=== PATIENT | male | born 1970 | race African-American/Black ===

== ENCOUNTER 2017-11-11 07:01 | Inpatient (IN) | payer OTHER ==
[2017-11-08 13:51] VITALS: BMI 32.8
[2017-11-11] MEDS ORDERED: PROPOFOL 20 ML ONE ×29 (07:42→15:20)
[2017-11-11] MEDS ORDERED: fentaNYL CITRATE 250 MCG/5 ML VIAL ONE ×5 (07:43→17:21)
[2017-11-11] MEDS ORDERED: MIDAZOLAM HCL 2 MG/2 ML SINGLE DOSE VIAL ONE ×2 (07:43)
[2017-11-11] MEDS ORDERED: ceFAZolin SODIUM 1 GM VIAL ONE ×2 (07:43→14:24)
[2017-11-11] MEDS ORDERED: ONDANSETRON 4 MG/2 ML VIAL ONE (07:43)
[2017-11-11] MEDS ORDERED: ROCURONIUM BROMIDE 50 MG/5 ML VIAL ONE ×3 (07:43→11:06)
[2017-11-11] MEDS ORDERED: DEXAMETHASONE SOD PHOSPHATE 4 MG/1 ML VIAL ONE (07:43)
[2017-11-11] MEDS ORDERED: SUCCINYLCHOLINE CHLORIDE 200 MG/10 ML VIAL ONE (07:43)
[2017-11-11] MEDS ORDERED: DESFLURANE GAS 240 ML BOTTLE IH ONE (07:56)
[2017-11-11] MEDS ORDERED: THROMBIN (BOVINE) 5,000 UNIT VIAL TP ONE ×2 (08:22→14:29)
[2017-11-11] MEDS ORDERED: HEPARIN NA (PORCINE) 5,000 UNITS/ML 1ML VIAL ONE (08:22)
[2017-11-11] MEDS ORDERED: LABETALOL HCL 5 MG/1 ML (100MG/20 ML VIAL) ONE (09:13)
[2017-11-11] MEDS ORDERED: VANCOMYCIN 1,000 MG VIAL (RESTRICTED TO ID ONLY) IVPB ONE (09:54)
[2017-11-11] MEDS ORDERED: ceFAZolin SODIUM 1 GM VIAL IVPB ONE (10:30)
[2017-11-11] MEDS ORDERED: TRANEXAMIC ACID 1000 MG/10 ML VIAL ONE (10:55)
[2017-11-11] MEDS ORDERED: PHENYLEPHRINE HCL 10 MG/1 ML SINGLE DOSE VIAL ONE (14:28)
[2017-11-11] MEDS ORDERED: GELATIN, ABSORBABLE 100 EACH SPONGE TP ONE (14:30)
[2017-11-11] MEDS ORDERED: BENZOIN/ALOE VERA/STORAX/TOLU 58 ML BOTTLE ONE (17:53)
--- NOTE | 2017-11-11 18:44 | OP ---
Operative Note - Note: Operative Date: 11/11/17 Pre-Operative Diagnosis: Thoracolumbar spondylosis. Lumbar radiculopathy. Progressive neurological decline Operation: 1. L2-S1 laminectomies. 2. L3-4, L4-5, L5-S1 PLIF. 3. T8-S1 PISF. 4. Multi-layered, complex wound closure (~40cm) Post-Operative Diagnosis: Same as Pre-op Surgeon: Dameon Maki Medical Review Specialist: Rojas Maki (Co-Surgeon) Anesthesiologist/PERINATAL TECHNICIAN: Geovanni Carrillo Anesthesia: General Specimens Removed: L3-4, L4-5, L5-S1 discs Estimated Blood Loss (mls): 2,470 Drains & Tubes with Location: 1 x deep & 1 x superficial HemoVac Blood Volume Replaced (mls): 1,250 (Cell Saver) Fluid Volume Replaced (mls): 7,000 (Crystalloid) Operative Report Dictated: Yes
--- NOTE | 2017-11-11 18:47 | PN ---
Progress Note (short form) - Note Progress Note: 47M s/p L2-S1 laminectomies, L3-4, L4-5, L5-S1 PLIF, T8-S1 PISF POD #0. -Admit to ICU post-op. -Pain control: per anaesthesia team; SENIOR ENVIRONMENTAL CONSULTANT. -Mechanical DVT PPx. only: CRISTOPHER's, SCD's. -Incentive spirometry; aggressive chest PT. -PT/OT/Rehab, OOB. -WBAT B/L LE. -f/u drain output. -NPO until flatus, then advance as tolerated. -Lott care; d/c when ambulating. -Elad-op antibiotics. -f/u post-op, AM labs. -Care per medical hospitalist service. -Discharge planning. -Will follow. Rojas Maki MD (Orthopaedic Surgery).
[2017-11-11] MEDS ORDERED: ONDANSETRON 4 MG/2 ML VIAL IVPUSH PRN ×2 (18:59→19:50)
[2017-11-11] MEDS ORDERED: LACTATED RINGERS SOLUTION 1,000 ML IV SCH ×2 (19:00→20:00)
[2017-11-11] MEDS ORDERED: ceFAZolin 2 GRAM PREMIX BAG IVPB SCH (19:00)
[2017-11-11] MEDS ORDERED: KETOROLAC TROMETHAMINE 30 MG/1 ML VIAL IVPUSH PRN (19:00)
[2017-11-11] MEDS ORDERED: PROMETHAZINE HCL 25 MG/1 ML VIAL IVPB PRN (19:50)
[2017-11-11 20:45] LABS: ARTERIAL BLOOD GAS BASE EXCESS -5.4 meq/l (-2-2); ARTERIAL BLOOD GAS PCO2 33.9 mmHg (35-45); ARTERIAL BLOOD GAS pH 7.36 (7.35-7.45)
[2017-11-11 20:46] LABS: ALLENS TEST POSITIVE
[2017-11-11] MEDS ORDERED: VANCOMYCIN 1,000 MG in DEXTROSE 5%-WATER - 250 ML IVPB ONE (21:30)
[2017-11-11] MEDS: HYDROmorphone *PCA* 10MG/50ML DISP.SYRIN PCA SCH (21:55)
[2017-11-11] MEDS ORDERED: HYDROmorphone *PCA* 10MG/50ML DISP.SYRIN PCA SCH (22:00)
[2017-11-11] MEDS ORDERED: ACETAMINOPHEN INJECTION 100 ML IVPB ONE (22:16)
[2017-11-11] MEDS: ACETAMINOPHEN 1000 MG/100 ML VIAL (NON FORMULARY) IVPB SCH (22:18)
--- NOTE | 2017-11-11 23:46 | OP ---
DATE OF OPERATION: 11/11/2017 SURGEON: Dameon Maki MD SENIOR MANAGEMENT CONSULTANT: Rojas Maki MD PREOPERATIVE DIAGNOSES: 1. Disk prolapse at L3-4, L4-5, L5-6 with associated spinal stenosis. 2. Diffuse facet arthropathy from thoracolumbar junction to lumbosacral junction. 3. Kyphosis. 4. Segmental instability. ANESTHESIA: General. OPERATION PERFORMED: 1. Laminectomy, L2 to S1. 2. Posterior lumbar interbody fusion, L3-4; posterior lumbar interbody fusion, L4-5; posterior lumbar interbody fusion, L5-S1. Each level with cages and anterior bone grafting. 3. Pedicle screw instrumentation, T8 to S1. 4. Posterolateral arthrodesis, T8 to S1. 5. Hernandez-Quijano osteotomy, T12-L1, L1-2. 6. Yohannes osteotomies, T8, T9, T10, T11, and T12, left and right-hand sides. 7. Use of bone marrow aspirate concentrate and autograft. 8. Complex wound closure, 40 cm. 9. Use of biplane fluoroscopy. ANTIBIOTICS GIVEN: Kefzol 2 g, vancomycin 1 g preoperative; Kefzol 1 g given intraoperatively. BLOOD LOSS: Approximately 2 L. Only Cell Saver blood was given back to the patient. Patient remained stable throughout. OPERATION DETAILS: The patient was correctly identified, brought to the operating room. Imaging was available for intraoperative evaluation. The thoracolumbosacral spine was prepped in the routine manner with Betadine scrub solution, wiped off with alcohol. DuraPrep applied. Timeout was called. Intraoperative imaging was available for evaluation and assessment. The patient was correctly identified, placed prone on gel rolls. The pelvis was maintained in as much extension as possible in order to maintain lumbar lordosis and prevent anteversion of the pelvis. The entire spine from the tip of the spinous process of T7 to S1 was opened. A subperiosteal dissection was performed at each level after the tip of the transverse process at both the thoracic as well as lumbar spine region. The levels were appreciated with anatomical guidelines and a lateral fluoroscopic x-ray. The L2, L3, L4, L5 laminae were resected with a complete laminectomy and undercutting facetectomy to relieve his spinal stenosis and to enable accurate positioning of cages for the posterior lumbar interbody fusion L3-4, L4 -5, and L5-S1. Significant spinal stenosis accounted and noted at L3-4, L4-5, and L5-S1. An undercutting facetectomy was likewise performed, freeing the entire nerve root complex. Once this had been performed, the dura was retracted from right to left at L3-4 and L4-5 and from left to right at L5-S1. Epidural veins were dealt with with bipolar Bovie. Each diskectomy was performed, and each removal of disk material from the interdisk content space was dealt with in the exact same way, that is an elliptical annulectomy performed. The brando were inserted. The brando at L4 -5 went up to a size 13 to receive a Press-Fitted 14 cage. This was a TETRAfuse cage. At L5-S1, a size 10 cage was inserted, and at L3-4, a size 11 cage inserted. Each disk space was dealt with in the exact same manner, that is all disk material removed using pituitary rongeurs, the brando, serrated curettes. Pituitary rongeurs included up and downgoing curettes right down to the endplate at all levels where irrigation of the cages after each cage inserted and prior to insertion of each cage, each interdisk space was packed with autologous bone that was milled in a [employer], harvested from the posterior elements, and packed into the interbody space. Solid Press-Fit fixation achieved at all. Lordosis well maintained. Verification of cage seating on x-ray revealed excellent positioning. Once this had been performed, using anatomical guidelines and lateral fluoroscopic x-ray, the pedicles T8 to S1 were identified. Each pedicle was seated with anatomical guidelines. Lateral fluoroscopic x-ray enabled us to seat the screws accurately in relation to the endplates. All screws measured 6 x 40 in the thoracic spine, 6.5 x 45 in the lumbar spine, and 7.5 into the S1 complexes at the lumbosacral junction. Solid fixation of all screws enjoyed. Appropriately, each screw tested with intraoperative neuromonitoring, found to be completely safe. The cage sizes were 11, 13, and 14. Long rods were utilized. The T8 to S1 fusion now being noted. At this point, we converted the undercutting facetectomy at T12-L1 and L1-L2 into Hernandez-Quijano osteotomies, both left and right-hand sides to enhance the lordosis, and appropriate Yohannes osteotomies were performed from T8 right down to T12 to facilitate screw fixation as well as fusion. The rods contoured appropriately, fixed solidly into the screw heads. Excellent reduction and fixation achieved. Two CrossLinks applied. The torque devices tightened all caps to the screw heads appropriately. The wounds were thoroughly lavaged at the outset of the operation. At the end of the procedure, the bone grafting was a combination of marrow that had been aspirated from the left posterior ilium, 20 mL of marrow as spun down for the CD34 cells. This achieved appropriate mixing with the graft and brought about a solid, associated posterolateral arthrodesis from T8 to S1, left and right-hand sides. The wounds again were thoroughly lavaged. The dura was completely intact. Closure: Muscle 1 Vicryl, fascia 1 Vicryl, subcutaneous 1 and 2-0 Vicryl, skin 3-0 Monocryl with Steri-Strips. This completed a 40-cm complex wound closure. Two drains were utilized, one deep, one superficial. These were 1/8-inch Hemovacs. Operation went extremely well. Patient will be nursed in the ICU. MD WIL Bates/[id number] MTDD
[2017-11-12] MEDS: ACETAMINOPHEN 1000 MG/100 ML VIAL (NON FORMULARY) IVPB SCH ×2 (03:30→10:10)
[2017-11-12 06:20] LABS: HEMATOCRIT 26.1 % (35.4-49); HEMOGLOBIN 8.8 GM/dL (11.7-16.9); MCH 29.3 pg (25.7-33.7); MCHC 33.7 g/dl (32.0-35.9); MEAN PLT VOLUME 9.1 fl (7.5-11.1); PLATELET COUNT 115 K/MM3 (134-434); WHITE BLOOD COUNT 16.7 K/mm3 (4.0-10.0)
[2017-11-12 06:43] LABS: ANION GAP 5 (8-16); BLOOD UREA NITROGEN 25 mg/dL (7-18); CALCIUM 7.3 mg/dL (8.5-10.1); CHLORIDE 109 mmol/L (98-107); CO2 25 mmol/L (21-32); CREATININE 2.7 mg/dL (0.7-1.3); GLUCOSE,RANDOM 111 mg/dL (74-106); SODIUM 139 mmol/L (136-145)
[2017-11-12] MEDS: CEFAZOLIN 2 GM/D5W 2 GM/50 ML ML IVPB SCH (07:04)
--- NOTE | 2017-11-12 08:18 | PN ---
Progress Note, Physician Chief Complaint: s/p T4-S1 fusion with pelvic fixation under general anesthesia History of Present Illness: post op day one. Patient with post op delirium overnight in the ICU now resolved - Current Medication List Current Medications: Active Medications Acetaminophen (Ofirmev Injection -) 1,000 mg IVPB Q8H [facility] Stop: 11/12/17 11:01 Last Admin: 11/12/17 03:30 Dose: 1,000 mg Fentanyl (Sublimaze Injection -) 50 mcg IVPUSH [id number] PRN PRN Reason: PAIN-PACU ORDER X 4 DOSES ONLY Gabapentin (Neurontin -) 600 mg PO BID LIBBY Gabapentin (Neurontin -) 1,200 mg PO HS [facility]BY Hydromorphone HCl (Dilaudid Telecommunications Network Engineer -) 10 mg INTERNATIONAL LOGISTICS MANAGER INTERNATIONAL LOGISTICS MANAGER [facility] PRN Reason: Protocol Stop: 11/18/17 21:53 Last Admin: 11/11/17 21:55 Dose: 10 mg Lactated Ringer's (Lactated Ringers Solution) 1,000 mls @ 75 mls/hr IV ASDIR [facility] Last Admin: 11/11/17 22:00 Dose: 0 mls Ketorolac Tromethamine (Toradol Injection -) 30 mg IVPUSH Q6H PRN PRN Reason: PAIN LEVEL 7 - 10 Ondansetron HCl (Zofran Injection) 4 mg IVPUSH Q6H PRN PRN Reason: NAUSEA AND/OR VOMITING Promethazine HCl (Phenergan Injection -) 12.5 mg IVPB Q6H PRN PRN Reason: NAUSEA-FOR RESCUE AFTER 15 MIN - Objective Vital Signs: Vital Signs Temperature 97.8 F 11/12/17 02:00 Pulse Rate 85 11/12/17 06:00 Respiratory Rate 22 11/12/17 06:00 Blood Pressure 105/76 11/12/17 06:00 O2 Sat by Pulse Oximetry (%) 100 11/11/17 23:15 Constitutional: Yes: Well Nourished Cardiovascular: Yes: WNL Respiratory: Yes: WNL Gastrointestinal: Yes: WNL Labs: CBC, BMP 11/12/17 05:55 11/12/17 05:55 Assessment/Plan Patient with post op delirium, now resolved, pain control with INTERNATIONAL LOGISTICS MANAGER, patient asleep at time of visit, will continue sap senior developer for analgesia for now. dept of anesthesia will continue to follow
[2017-11-12] MEDS: GABAPENTIN 300 MG CAPSULE (FP) PO SCH ×2 (09:16→21:13)
[2017-11-12] MEDS ORDERED: HYDROmorphone HCL CARPU-JECT 1 MG/1 ML DISP.SYRIN IVPUSH ONE (09:29)
[2017-11-12] MEDS ORDERED: HYDROmorphone HCL 5 MG/5 ML CUP PO ONE (10:00)
[2017-11-12] MEDS ORDERED: SODIUM POLYSTYRENE SULFONATE 15 GM/60 ML BOTTLE PO ONE (12:12)
--- NOTE | 2017-11-12 13:32 | CONSULT ---
Consultation: REQUESTING PROVIDER: CONSULT REQUEST: We have been asked to medically evaluate this patient for ICU care HISTORY OF PRESENT ILLNESS: Patient is a 47M with history of HTN in the ICU after having L2-S1 laminectomy, L3-4 L4-5 L5-S1 PLIF, T8-S1 PISF. Patient endorses pain in his back and hiccups. Patient denies fevers, chills. Had episode of delirium after given morphine. Denies history of kidney problems. REVIEW OF SYSTEMS: CONSTITUTIONAL: Absent: fever, chills, diaphoresis, generalized weakness HEENT: Absent: rhinorrhea, nasal congestion, throat pain, throat swelling CARDIOVASCULAR: Absent: chest pain, syncope, palpitations, RESPIRATORY: Present: Hiccups Absent: cough, shortness of breath, dyspnea with exertion, GASTROINTESTINAL: Absent: abdominal pain, abdominal distension, nausea, vomiting GENITOURINARY: Absent: dysuria, frequency MUSCULOSKELETAL: Present: Back pain. Absent: Neck pain SKIN: Absent: rash, itching, pallor NEUROLOGIC: Absent: headache, focal weakness or paresthesias, dizziness PHYSICAL EXAMINATION Vital Signs - 24 hr 11/11/17 11/11/17 11/11/17 19:37 19:45 19:53 Temperature 97.8 F Pulse Rate 88 74 Respiratory 17 10 L 11 L Rate Blood Pressure 130/97 137/100 O2 Sat by Pulse 100 100 Oximetry (%) 11/11/17 11/11/17 11/11/17 20:00 20:15 20:30 Temperature Pulse Rate 79 75 76 Respiratory 8 L 11 L 10 L Rate Blood Pressure 137/115 115/47 115/88 O2 Sat by Pulse 100 100 100 Oximetry (%) 11/11/17 11/11/17 11/11/17 20:45 21:00 21:15 Temperature Pulse Rate 75 76 80 Respiratory 10 L 10 L 9 L Rate Blood Pressure 125/88 120/84 118/78 O2 Sat by Pulse 100 100 100 Oximetry (%) 11/11/17 11/11/17 11/11/17 21:35 21:45 21:55 Temperature Pulse Rate 78 78 78 Respiratory 10 L 9 L 9 L Rate Blood Pressure 120/80 112/82 112/82 O2 Sat by Pulse 100 100 Oximetry (%) 11/11/17 11/11/17 11/11/17 22:00 22:15 22:30 Temperature Pulse Rate 86 85 83 Respiratory 9 L 9 L 8 L Rate Blood Pressure 112/70 110/72 111/63 O2 Sat by Pulse 100 100 100 Oximetry (%) 11/11/17 11/11/17 11/11/17 22:45 23:00 23:15 Temperature Pulse Rate 85 84 79 Respiratory 10 L 8 L 10 L Rate Blood Pressure 114/76 118/69 128/78 O2 Sat by Pulse 100 100 100 Oximetry (%) 11/11/17 11/12/17 11/12/17 23:30 02:00 04:44 Temperature 98.0 F 97.8 F Pulse Rate 82 88 93 H Respiratory 16 20 29 H Rate Blood Pressure 119/76 91/51 102/55 O2 Sat by Pulse Oximetry (%) 11/12/17 11/12/17 11/12/17 06:00 08:00 09:00 Temperature Pulse Rate 85 85 Respiratory 22 22 22 Rate Blood Pressure 105/76 127/67 O2 Sat by Pulse 100 Oximetry (%) 11/12/17 11/12/17 10:00 11:57 Temperature 97.5 F L Pulse Rate 86 88 Respiratory 22 22 Rate Blood Pressure 113/63 122/70 O2 Sat by Pulse Oximetry (%) GENERAL: Awake, alert, and fully oriented, in no acute distress. HEAD: Normal with no signs of trauma. EYES: Pupils equal, round and reactive to light, extraocular movements intact EARS, NOSE, THROAT: Ears normal, nares patent, oropharynx clear without exudates. Moist mucous membranes. NECK: Normal range of motion, supple without lymphadenopathy, JVD, or masses. LUNGS: Breath sounds equal, clear to auscultation bilaterally. No wheezes, and no crackles. No accessory muscle use. HEART: Regular rate and rhythm, normal S1 and S2 without murmur, rub or gallop. ABDOMEN: Soft, nontender, not distended, normoactive bowel sounds, no guarding, no rebound, no masses. No hepatomegaly or splenomegaly. UPPER EXTREMITIES: 2+ pulses, warm, well-perfused. No cyanosis. No clubbing. Cap refill <2 seconds. No peripheral edema. LOWER EXTREMITIES: 2+ pulses, warm, well-perfused. No calf tenderness. No peripheral edema. NEUROLOGICAL: Cranial nerves II-XII intact. Normal speech. SKIN: Warm, dry, normal turgor, no rashes or lesions noted. Laboratory Results - last 24 hr 11/11/17 11/12/17 11/12/17 20:40 05:55 05:55 WBC 16.7 H RBC 3.00 L Hgb 8.8 L Hct 26.1 L MCV 87.0 MCH 29.3 MCHC 33.7 RDW 14.0 Plt Count 115 L MPV 9.1 Puncture Site Left radial ABG pH 7.36 ABG pCO2 at Pt Temp 33.9 L ABG pO2 at Pt Temp 544.0 H* ABG HCO3 18.8 L ABG O2 Sat (Measured) 100.0 H* ABG O2 Content 16.9 ABG Base Excess -5.4 L Gabriele Test Positive O2 Delivery Device Mech vent Oxygen Flow Rate 100% Vent Mode A/c Vent Rate 10 Mechanical Rate Yes PEEP 0.0 Pressure Support Vent 800 Sodium 139 Potassium 6.0 H Chloride 109 H Carbon Dioxide 25 Anion Gap 5 L BUN 25 H Creatinine 2.7 H Random Glucose 111 H Calcium 7.3 L Active Medications Generic Name Dose Route Start Last Admin Trade Name Freq PRN Reason Stop Dose Admin Fentanyl 50 mcg 11/11/17 19:50 Sublimaze Injection - IVPUSH [id number] PRN PAIN-PACU ORDER X 4 DOSES ONLY Gabapentin 600 mg 11/11/17 22:00 11/12/17 09:16 Neurontin - PO 600 mg BID LIBBY Administration Gabapentin 1,200 mg 11/11/17 22:00 Neurontin - PO HS LIBBY Hydromorphone HCl 10 mg 11/11/17 23:38 11/11/17 21:55 Dilaudid Produce Shipper - PUMPER HAND 11/18/17 21:53 10 mg PUMPER HAND LIBBY Administration Protocol Lactated Ringer's 1,000 mls @ 75 mls/hr 11/11/17 20:00 11/11/17 22:00 Lactated Ringers Solution IV 0 mls ASDIR LIBBY Administration Ketorolac Tromethamine 30 mg 11/11/17 19:00 Toradol Injection - IVPUSH Q6H PRN PAIN LEVEL 7 - 10 Ondansetron HCl 4 mg 11/11/17 19:50 Zofran Injection IVPUSH Q6H PRN NAUSEA AND/OR VOMITING Promethazine HCl 12.5 mg 11/11/17 19:50 Phenergan Injection - IVPB Q6H PRN NAUSEA-FOR RESCUE AFTER 15 MIN ASSESSMENT/PLAN: 47M with history of HTN in ICU after multiple spinal surgeries. Episode of delirium last night. Neuro #Post-op pain -PUMPER HAND -Given dilaudid PO because of worsening pain, pain since controlled with PUMPER HAND -Avoid morphine given episode of delirium -Back spasms, given flexeril. Renal #Elevated Cr level, possible rhabdo -Cr 2.7, baseline 1.1, K 5.5 on 10/31/17 -BUN/Cr does not suggest pre-renal -Renal consulted, appreciate recs, adding CK, repeat BMP, kidney/bladder US. FEN/GI #Advance diet per surgery #Hyperkalemic today to 6.0, given kayexalate PPx -Mechanical ppx only -Incentive spirometer Dispo- continued ICU monitoring Visit type - Emergency Visit Emergency Visit: No - New Patient This patient is new to me today: Yes Date on this admission: 11/12/17 - Critical Care Critical Care patient: Yes Total Critical Care Time (in minutes): 35 Critical Care Statement: The care of this patient involved high complexity decision making to prevent further life threatening deterioration of the patient 's condition and/or to evaluate & treat vital organ system(s) failure or risk of failure.
--- NOTE | 2017-11-12 14:36 | PN ---
Teaching Attending Note Name of Resident: Tyrese Krishnan ATTENDING PHYSICIAN STATEMENT I saw and evaluated the patient. I reviewed the resident's note and discussed the case with the resident. I agree with the resident's findings and plan as documented. SUBJECTIVE: Patient seen and examined in the ICU. POD#1 L2-S1 laminectomy, L3-4 L4-5 L5-S1 PLIF, T8-S1 PISF. Awake and alert. (+) Back pain 6/10. (+) hiccups No CP or SOB. Intake & Output 11/09/17 11/10/17 11/11/17 11/12/17 23:59 23:59 23:59 23:59 Intake Total 8850 1016 Output Total 4020 900 Balance 4830 116 Last Vital Signs Temp Pulse Resp BP Pulse Ox 98.1 F 86 22 119/74 100 11/12/17 13:00 11/12/17 13:00 11/12/17 13:00 11/12/17 13:00 11/12/17 09:00 Active Medications Fentanyl (Sublimaze Injection -) 50 mcg IVPUSH [id number] PRN PRN Reason: PAIN-PACU ORDER X 4 DOSES ONLY Gabapentin (Neurontin -) 600 mg PO BID [facility] Last Admin: 11/12/17 09:16 Dose: 600 mg Gabapentin (Neurontin -) 1,200 mg PO HS [facility] Hydromorphone HCl (Dilaudid System Safety Engineer -) 10 mg EXPLOSIVE ORDNANCE TECHNICIAN EXPLOSIVE ORDNANCE TECHNICIAN LIBBY PRN Reason: Protocol Stop: 11/18/17 21:53 Last Admin: 11/11/17 21:55 Dose: 10 mg Lactated Ringer's (Lactated Ringers Solution) 1,000 mls @ 75 mls/hr IV ASDIR [facility] Last Admin: 11/11/17 22:00 Dose: 0 mls Ketorolac Tromethamine (Toradol Injection -) 30 mg IVPUSH Q6H PRN PRN Reason: PAIN LEVEL 7 - 10 Ondansetron HCl (Zofran Injection) 4 mg IVPUSH Q6H PRN PRN Reason: NAUSEA AND/OR VOMITING Promethazine HCl (Phenergan Injection -) 12.5 mg IVPB Q6H PRN PRN Reason: NAUSEA-FOR RESCUE AFTER 15 MIN GENERAL: Awake, alert, and fully oriented, in no acute distress. HEAD: Normal with no signs of trauma. EYES: Pupils equal, round and reactive to light, extraocular movements intact EARS, NOSE, THROAT: Ears normal, nares patent, oropharynx clear without exudates. Moist mucous membranes. NECK: Normal range of motion, supple without lymphadenopathy, JVD, or masses. LUNGS: Breath sounds equal, clear to auscultation bilaterally. No wheezes, and no crackles. No accessory muscle use. HEART: Regular rate and rhythm, normal S1 and S2 without murmur, rub or gallop. ABDOMEN: Soft, nontender, not distended, normoactive bowel sounds, no guarding, no rebound, no masses. No hepatomegaly or splenomegaly. UPPER EXTREMITIES: 2+ pulses, warm, well-perfused. No cyanosis. No clubbing. Cap refill <2 seconds. No peripheral edema. LOWER EXTREMITIES: 2+ pulses, warm, well-perfused. No calf tenderness. No peripheral edema. BACK: dressing intact NEUROLOGICAL: Non-focal SKIN: Warm, dry, normal turgor, no rashes or lesions noted. Laboratory Results - last 24 hr 11/11/17 11/12/17 11/12/17 20:40 05:55 05:55 WBC 16.7 H RBC 3.00 L Hgb 8.8 L Hct 26.1 L MCV 87.0 MCH 29.3 MCHC 33.7 RDW 14.0 Plt Count 115 L MPV 9.1 Puncture Site Left radial ABG pH 7.36 ABG pCO2 at Pt Temp 33.9 L ABG pO2 at Pt Temp 544.0 H* ABG HCO3 18.8 L ABG O2 Sat (Measured) 100.0 H* ABG O2 Content 16.9 ABG Base Excess -5.4 L Gabriele Test Positive O2 Delivery Device Mech vent Oxygen Flow Rate 100% Vent Mode A/c Vent Rate 10 Mechanical Rate Yes PEEP 0.0 Pressure Support Vent 800 Sodium 139 Potassium 6.0 H Chloride 109 H Carbon Dioxide 25 Anion Gap 5 L BUN 25 H Creatinine 2.7 H Random Glucose 111 H Calcium 7.3 L ASSESSMENT/PLAN: POD#1 L2-S1 laminectomy, L3-4 L4-5 L5-S1 PLIF, T8-S1 PISF HTN Episode of delirium last night Acute on CKD suspected R/O Rhabdomyolysis EXPLOSIVE ORDNANCE TECHNICIAN Flexeril O2 as needed Mechanical VTE prophylaxis Incentive Spriometry PO as tolerated Follow renal function / K+ Level Disposition/further recommendations per surgery Dr Bryant Critical care time spent in reviewing chart, evaluating patient and formulating plan - 36 minutes.
--- NOTE | 2017-11-12 15:53 | CONSULT ---
Consult Consult Specialty:: Nephrology Reason for Consultation:: JEREMIE - History of Present Illness Chief Complaint: s/p laminectomy History of Present Illness: Pt is a 47 year old male who is s/p laminectomy who is admitted to the ICU. He was found to be in renal failure and I was called to evaluate him. He says that he has history of HTN which is diet controlled. He complains of back pain. He denies history of CKD. He has been taking NSAIDs daily for the last 4 years. He was on the OR table for a prolonged period of time. He denies dysuria or hematuria. He was also found to be hyperkalemic. He denies chest pain or palpitations. - History Source History Provided By: Patient - Past Medical History Cardio/Vascular: Yes: HTN - Past Surgical History Past Surgical History: Yes: Laminectomy - Alcohol/Substance Use Hx Alcohol Use: No - Smoking History Smoking history: Never smoked Have you smoked in the past 12 months: No Home Medications - Allergies Allergies/Adverse Reactions: Allergies Allergy/AdvReac Type Severity Reaction Status Date / Time No Known Drug Allergies Allergy Verified 11/11/17 07:40 - Home Medications Home Medications: Ambulatory Orders Chlorzoxazone [Lorzone] 750 mg PO DAILY 11/08/17 Cyclobenzaprine HCl 10 mg PO PRN PRN 11/08/17 Gabapentin 1,200 mg PO HS 11/08/17 Gabapentin 600 mg PO BID 11/08/17 Omeprazole 20 mg PO DAILY 11/08/17 Oxycodone HCl/Acetaminophen [Endocet 10-325 mg Tablet] 1 each PO TID PRN Family Disease History - Family Disease History Family Disease History: Diabetes: Mother Review of Systems - Review of Systems Constitutional: reports: Malaise Eyes: reports: No Symptoms HENT: reports: No Symptoms Neck: reports: No Symptoms Cardiovascular: reports: No Symptoms Respiratory: reports: No Symptoms Gastrointestinal: reports: No Symptoms Genitourinary: reports: No Symptoms Musculoskeletal: reports: Back Pain Neurological: reports: No Symptoms Endocrine: reports: No Symptoms Psychiatric: reports: No Symptoms Physical Exam Vital Signs: Vital Signs Temperature 98.1 F 11/12/17 14:00 Pulse Rate 86 11/12/17 14:00 Respiratory Rate 22 11/12/17 14:00 Blood Pressure 119/74 11/12/17 14:00 O2 Sat by Pulse Oximetry (%) 100 11/12/17 09:00 Constitutional: Yes: Calm Eyes: Yes: Conjunctiva Clear HENT: Yes: Atraumatic Neck: Yes: Supple Cardiovascular: Yes: S1, S2 Respiratory: Yes: CTA Bilaterally Gastrointestinal: Yes: Normal Bowel Sounds, Soft Renal/: Yes: WNL Musculoskeletal: Yes: WNL Edema: No Neurological: Yes: Oriented Psychiatric: Yes: Oriented Labs: CBC, BMP 11/12/17 05:55 11/12/17 05:55 Laboratory Tests 11/12/17 11/12/17 11/12/17 05:55 05:55 15:15 Hgb 8.8 L Sodium 139 140 Potassium 6.0 H 4.9 Chloride 109 H 109 H Carbon Dioxide 25 24 Anion Gap 5 L 7 L BUN 25 H Creatinine 2.7 H 3.6 H D Random Glucose 99 Calcium 7.7 L Creatine Kinase 6011 H Imaging - Results Chest X-ray: Report Reviewed Problem List - Problems (1) JEREMIE (acute kidney injury) Code(s): N17.9 - ACUTE KIDNEY FAILURE, UNSPECIFIED (2) Hyperkalemia Code(s): E87.5 - HYPERKALEMIA (3) Rhabdomyolysis Code(s): M62.82 - RHABDOMYOLYSIS Assessment/Plan Current Medications Generic Name Dose Route Start Last Admin Trade Name Miloq PRN Reason Stop Dose Admin Fentanyl 50 mcg 11/11/17 19:50 Sublimaze Injection - IVPUSH [id number] PRN PAIN-PACU ORDER X 4 DOSES ONLY Gabapentin 600 mg 11/11/17 22:00 11/12/17 09:16 Neurontin - PO 600 mg BID LIBBY Administration Gabapentin 1,200 mg 11/11/17 22:00 Neurontin - PO HS LIBBY Hydromorphone HCl 10 mg 11/11/17 23:38 11/11/17 21:55 Dilaudid Splitting Machine Operator - POWERHOUSE MECHANIC SUPERVISOR 11/18/17 21:53 10 mg POWERHOUSE MECHANIC SUPERVISOR LIBBY Administration Protocol Lactated Ringer's 1,000 mls @ 75 mls/hr 11/11/17 20:00 11/11/17 22:00 Lactated Ringers Solution IV 0 mls ASDIR LIBBY Administration Sodium Chloride 1,000 mls @ 1,000 mls/hr 11/12/17 17:18 Normal Saline - IV 11/12/17 18:17 ASDIR STA Ketorolac Tromethamine 30 mg 11/11/17 19:00 Toradol Injection - IVPUSH Q6H PRN PAIN LEVEL 7 - 10 Ondansetron HCl 4 mg 11/11/17 19:50 Zofran Injection IVPUSH Q6H PRN NAUSEA AND/OR VOMITING Promethazine HCl 12.5 mg 11/11/17 19:50 Phenergan Injection - IVPB Q6H PRN NAUSEA-FOR RESCUE AFTER 15 MIN Impression 1. JEREMIE 2. hyperkalemia 3. hx HTN 4. rhabdo 5. s/p laminectomy Plan - asked for repeat labs and potassium is improved however the renal function is worse - please stop all nsaids - IV hydration for rhabdo - check ua, urine lytes and cigarette roller - check renal ultrasound - check cpk daily - d/c LR and give saline - discussed with ICU team - outpt labs that were done on 10/31 cigarette roller 1.1 k 5.5 bun 11 - will follow Dr Ward
--- NOTE | 2017-11-12 16:04 | PN ---
Physical Exam: SUBJECTIVE: Patient seen and examined Overnight, patient had back pain. States pain is moderately controlled but tries not to use the MRI SPECIALIST pump. Patient denies fever, chills, chest pain, shortness of breath. OBJECTIVE: Vital Signs Period Temp Pulse Resp BP Sys/Yo Pulse Ox Last 24 Hr 97.5 F-98.1 F 74-93 8-29 91-137/47-115 100-100 GENERAL: The patient is awake, alert, and fully oriented, in no acute distress. HEAD: Normal with no signs of trauma. EYES: PERRL, extraocular movements intact, sclera anicteric, conjunctiva clear. No ptosis. ENT: Oropharynx clear without exudates, moist mucous membranes. NECK: Trachea midline, full range of motion, supple. LUNGS: Breath sounds equal, clear to auscultation bilaterally, no wheezes, no crackles, no accessory muscle use. HEART: Regular rate and rhythm, S1, S2 without murmur, rub or gallop. ABDOMEN: Soft, nontender, nondistended, hypoactive bowel sounds, no guarding, no rebound, no hepatosplenomegaly, no masses. EXTREMITIES: 2+ pulses, warm, well-perfused, no edema. NEUROLOGICAL: Cranial nerves II through XII grossly intact. normal speech. 5/5 strength in b/l le. sensation decreased below the lateral knee on the right leg. PSYCH: Normal mood, normal affect. SKIN: Warm, dry, normal turgor, no rashes or lesions noted EMI DRAIN IN PLACE TAVER[place] IN PLACE Laboratory Results - last 24 hr 11/11/17 11/12/17 11/12/17 20:40 05:55 05:55 WBC 16.7 H RBC 3.00 L Hgb 8.8 L Hct 26.1 L MCV 87.0 MCH 29.3 MCHC 33.7 RDW 14.0 Plt Count 115 L MPV 9.1 Puncture Site Left radial ABG pH 7.36 ABG pCO2 at Pt Temp 33.9 L ABG pO2 at Pt Temp 544.0 H* ABG HCO3 18.8 L ABG O2 Sat (Measured) 100.0 H* ABG O2 Content 16.9 ABG Base Excess -5.4 L Gabriele Test Positive O2 Delivery Device Mech vent Oxygen Flow Rate 100% Vent Mode A/c Vent Rate 10 Mechanical Rate Yes PEEP 0.0 Pressure Support Vent 800 Sodium 139 Potassium 6.0 H Chloride 109 H Carbon Dioxide 25 Anion Gap 5 L BUN 25 H Creatinine 2.7 H Random Glucose 111 H Calcium 7.3 L Active Medications Generic Name Dose Route Start Last Admin Trade Name Freq PRN Reason Stop Dose Admin Fentanyl 50 mcg 11/11/17 19:50 Sublimaze Injection - IVPUSH [id number] PRN PAIN-PACU ORDER X 4 DOSES ONLY Gabapentin 600 mg 11/11/17 22:00 11/12/17 09:16 Neurontin - PO 600 mg BID LIBBY Administration Gabapentin 1,200 mg 11/11/17 22:00 Neurontin - PO HS LIBBY Hydromorphone HCl 10 mg 11/11/17 23:38 11/11/17 21:55 Dilaudid Shredder Picker - MRI SPECIALIST 11/18/17 21:53 10 mg MRI SPECIALIST LIBBY Administration Protocol Lactated Ringer's 1,000 mls @ 75 mls/hr 11/11/17 20:00 11/11/17 22:00 Lactated Ringers Solution IV 0 mls ASDIR LIBBY Administration Ketorolac Tromethamine 30 mg 11/11/17 19:00 Toradol Injection - IVPUSH Q6H PRN PAIN LEVEL 7 - 10 Ondansetron HCl 4 mg 11/11/17 19:50 Zofran Injection IVPUSH Q6H PRN NAUSEA AND/OR VOMITING Promethazine HCl 12.5 mg 11/11/17 19:50 Phenergan Injection - IVPB Q6H PRN NAUSEA-FOR RESCUE AFTER 15 MIN ASSESSMENT/PLAN: 47 year old M with no pmh presented post op L2-S1 laminectomies, L3-4, L4-5, L5- S1 PLIF, T8-S1 PISF, and Multi-layered, complex wound closure (~40cm). #Post op day 1 s/p L2-S1 laminectomies, L3-4, L4-5, L5-S1 PLIF, T8-S1 PISF, and Multi-layered, complex wound closure -Zofran/Promethazine for nausea -Pain control with toradol, gabapentin, fentanyl, and dilaudid potline monitor -Incentive spirometer/Chest PT -PT/OT, OOB, weight bearing as tolerated #JEREMIE 2/2 to ?rhabdo -CPK pending -LR @ 75 cc/hr -Monitor cr, urine output -Renal/bladder u/s -Renal consult, Dr. Ward #FEN/GI -LR @ 75 cc/hr -wnl -npo #PPx -scds -teds #Dispo -Continue icu level of care Visit type - Emergency Visit Emergency Visit: Yes ED Registration Date: 11/11/17 Care time: The patient presented to the Emergency Department on the above date and was hospitalized for further evaluation of their emergent condition. - New Patient This patient is new to me today: Yes Date on this admission: 11/12/17 - Critical Care Critical Care patient: Yes Total Critical Care Time (in minutes): 38 Critical Care Statement: The care of this patient involved high complexity decision making to prevent further life threatening deterioration of the patient 's condition and/or to evaluate & treat vital organ system(s) failure or risk of failure.
[2017-11-12 16:42] LABS: ANION GAP 7 (8-16); BLOOD UREA NITROGEN 34 mg/dL (7-18); CALCIUM 7.7 mg/dL (8.5-10.1); CHLORIDE 109 mmol/L (98-107); CO2 24 mmol/L (21-32); CREATININE 3.6 mg/dL (0.7-1.3); GLUCOSE,RANDOM 99 mg/dL (74-106); POTASSIUM 4.9 mmol/L (3.5-5.1); SODIUM 140 mmol/L (136-145)
[2017-11-12] MEDS ORDERED: SODIUM CHLORIDE 1,000 ML IV STA (17:18)
[2017-11-12] MEDS ORDERED: SODIUM CHLORIDE 1,000 ML IV SCH (17:30)
--- NOTE | 2017-11-12 18:43 | PN ---
Teaching Attending Note Name of Resident: Arnel Nettles ATTENDING PHYSICIAN STATEMENT I saw and evaluated the patient. I reviewed the resident's note and discussed the case with the resident. I agree with the resident's findings and plan as documented. SUBJECTIVE: POD #1, patient complains of back pain. He gets relief with Dilaudid. OBJECTIVE: Vital Signs Period Temp Pulse Resp BP Sys/Yo Pulse Ox Last 24 Hr 97.5 F-98.1 F 74-93 8-29 91-137/47-115 100-100 HEART: S1S2, RRR LUNGS: Clear ABDOMEN: Obese, soft, non-tender, non-distended, normal BS EXTREMITIES: No edema Laboratory Results - last 24 hr 11/11/17 11/12/17 11/12/17 20:40 05:55 05:55 WBC 16.7 H RBC 3.00 L Hgb 8.8 L Hct 26.1 L MCV 87.0 MCH 29.3 MCHC 33.7 RDW 14.0 Plt Count 115 L MPV 9.1 Puncture Site Left radial ABG pH 7.36 ABG pCO2 at Pt Temp 33.9 L ABG pO2 at Pt Temp 544.0 H* ABG HCO3 18.8 L ABG O2 Sat (Measured) 100.0 H* ABG O2 Content 16.9 ABG Base Excess -5.4 L Gabriele Test Positive O2 Delivery Device Mech vent Oxygen Flow Rate 100% Vent Mode A/c Vent Rate 10 Mechanical Rate Yes PEEP 0.0 Pressure Support Vent 800 Sodium 139 Potassium 6.0 H Chloride 109 H Carbon Dioxide 25 Anion Gap 5 L BUN 25 H Creatinine 2.7 H Random Glucose 111 H Calcium 7.3 L Creatine Kinase Creatine Kinase Index CK-MB (CK-2) 11/12/17 15:15 WBC RBC Hgb Hct MCV MCH MCHC RDW Plt Count MPV Puncture Site ABG pH ABG pCO2 at Pt Temp ABG pO2 at Pt Temp ABG HCO3 ABG O2 Sat (Measured) ABG O2 Content ABG Base Excess Gabriele Test O2 Delivery Device Oxygen Flow Rate Vent Mode Vent Rate Mechanical Rate PEEP Pressure Support Vent Sodium 140 Potassium 4.9 Chloride 109 H Carbon Dioxide 24 Anion Gap 7 L BUN 34 H D Creatinine 3.6 H D Random Glucose 99 Calcium 7.7 L Creatine Kinase 6011 H Creatine Kinase Index 0.6 CK-MB (CK-2) 37.714 H Current Medications Generic Name Dose Route Start Last Admin Trade Name Freq PRN Reason Stop Dose Admin Fentanyl 50 mcg 11/11/17 19:50 Sublimaze Injection - IVPUSH [id number] PRN PAIN-PACU ORDER X 4 DOSES ONLY Gabapentin 600 mg 11/11/17 22:00 11/12/17 09:16 Neurontin - PO 600 mg BID LIBBY Administration Gabapentin 1,200 mg 11/11/17 22:00 Neurontin - PO HS LIBBY Hydromorphone HCl 10 mg 11/11/17 23:38 11/11/17 21:55 Dilaudid Data Quality Consultant - RESEARCH HYDRAULIC ENGINEER 11/18/17 21:53 10 mg RESEARCH HYDRAULIC ENGINEER LIBBY Administration Protocol Sodium Chloride 1,000 mls @ 150 mls/hr 11/12/17 17:30 Normal Saline - IV ASDIR LIBBY Ondansetron HCl 4 mg 11/11/17 19:50 Zofran Injection IVPUSH Q6H PRN NAUSEA AND/OR VOMITING Promethazine HCl 12.5 mg 11/11/17 19:50 Phenergan Injection - IVPB Q6H PRN NAUSEA-FOR RESCUE AFTER 15 MIN ASSESSMENT AND PLAN: This is a 47 year old man with no significant past medical history who underwent multi-level laminectomies and fusions. 1. Thoracolumbar spondylosis with lumbar radiculopathy - s/p L2-S1 laminectomies; L3-4, L4-5, L5-S1 PLIF; T8-S1 PISF; multi-layered , complex wound closure 11/11 - Continue Dilaudid RESEARCH HYDRAULIC ENGINEER, Neurontin for pain control - Physical therapy 2. Acute kidney injury with hyperkalemia, rhabdomyolysis - Potassium improved - Toradol discontinued - Continue IV fluid - Monitor CK - Follow up renal US - Nephrology input appreciated 3. Obesity with BMI 32.8
--- NOTE | 2017-11-12 19:35 | PN ---
Progress Note (short form) - Note Progress Note: POD #1 In ICU Awake Fully orientated Comfortable Mild incisional Pain C/O back spasms No leg pain No headache Vitals as per chart Nephrology issues Consult complete CVS Stable Resp Clear Abd Soft Passing flatus Wound bandage dry Drains and catheter in situ. Neuro At baseline ASSESS Doing well Observe renal function. PLAN PT Mobilize FWBAT Pain MX D/C planning ? home
--- NOTE | 2017-11-12 19:37 | PN ---
Progress Note (short form) - Note Progress Note: Pt tolerated clear liquid diet for dinner. Upgraded to soft diet for tomorrow per Dr. Maki.
[2017-11-12] MEDS: GABAPENTIN 400 MG CAPSULE (FP) PO SCH (21:13)
[2017-11-12] MEDS: SODIUM CHLORIDE 1,000 ML IV SCH (21:14)
[2017-11-12 22:01] LABS: URINE APPEARANCE CLOUDY; URINE BILIRUBIN NEGATIVE (<2.0 mg/dL); URINE BLOOD 2+ (NEGATIVE); URINE COLOR YELLOW; URINE GLUCOSE (UA) NEGATIVE (NEGATIVE); URINE KETONE NEGATIVE (NEGATIVE); URINE LEUK ESTERASE TRACE (NEGATIVE); URINE NITRITE NEGATIVE (NEGATIVE); URINE UROBILINOGEN NEGATIVE mg/dL (0.2-1.0)
[2017-11-12 22:15] LABS: URINE PROTEIN 1+ (NEGATIVE)
[2017-11-12 22:20] LABS: EPI CELLS RARE /HPF (FEW); URINE BACTERIA FEW /hpf (NONE SEEN); URINE MUCUS RARE
[2017-11-13 06:32] LABS: BASO % 0.2 % (0-2.0); EOS % 0.4 % (0-4.5); HEMATOCRIT 20.9 % (35.4-49); LYMPH % 7.9 % (8-40); MCH 29.2 pg (25.7-33.7); MCHC 33.4 g/dl (32.0-35.9); MEAN CELL VOLUME 87.4 fl (80-96); MEAN PLT VOLUME 10.2 fl (7.5-11.1); MONO % 8.2 % (3.8-10.2); NEUT % 83.3 % (42.8-82.8); PLATELET COUNT 93 K/MM3 (134-434); RBC 2.39 M/mm3 (4.00-5.60); RDW 14.2 % (11.9-15.9)
[2017-11-13 07:10] LABS: ALBUMIN 2.3 g/dl (3.4-5.0); ANION GAP 5 (8-16); BILIRUBIN,TOTAL 0.1 mg/dL (0.2-1.0); BLOOD UREA NITROGEN 41 mg/dL (7-18); CHLORIDE 112 mmol/L (98-107); CO2 25 mmol/L (21-32); GLUCOSE,RANDOM 96 mg/dL (74-106); MAGNESIUM 1.5 mg/dL (1.8-2.4); POTASSIUM 5.2 mmol/L (3.5-5.1); SGOT/AST 92 U/L (15-37); SGPT/ALT 25 U/L (12-78); SODIUM 142 mmol/L (136-145); TOT PROT 4.1 g/dl (6.4-8.2)
[2017-11-13 07:12] LABS: ALK PHOS 37 U/L (45-117)
[2017-11-13] MEDS: SODIUM CHLORIDE 1,000 ML IV SCH (08:14)
--- NOTE | 2017-11-13 08:33 | PN ---
Progress Note, Physician Chief Complaint: Patient having muscle spasms. PLUG DRILL OPERATOR helps pain some but when he awakens pain is still there. He is having some renal impairment with creatinine rising from 3.6 to 4.0 overnight. Want to avoid drugs that are primarily cleared by kidneys. - Current Medication List Current Medications: Active Medications Fentanyl (Sublimaze Injection -) 50 mcg IVPUSH [id number] PRN PRN Reason: PAIN-PACU ORDER X 4 DOSES ONLY Gabapentin (Neurontin -) 600 mg PO BID [facility] Last Admin: 11/12/17 21:13 Dose: 600 mg Gabapentin (Neurontin -) 1,200 mg PO HS [facility] Last Admin: 11/12/17 21:13 Dose: 1,200 mg Hydromorphone HCl (Dilaudid Riveting Machine Operator Tape Control -) 10 mg PLUG DRILL OPERATOR PLUG DRILL OPERATOR [facility] PRN Reason: Protocol Stop: 11/18/17 21:53 Last Admin: 11/11/17 21:55 Dose: 10 mg Sodium Chloride (Normal Saline -) 1,000 mls @ 150 mls/hr IV ASDIR [facility] Last Admin: 11/13/17 08:14 Dose: 150 mls/hr Ondansetron HCl (Zofran Injection) 4 mg IVPUSH Q6H PRN PRN Reason: NAUSEA AND/OR VOMITING Promethazine HCl (Phenergan Injection -) 12.5 mg IVPB Q6H PRN PRN Reason: NAUSEA-FOR RESCUE AFTER 15 MIN - Objective Vital Signs: Vital Signs Temperature 99.8 F H 11/13/17 06:00 Pulse Rate 108 H 11/13/17 06:00 Respiratory Rate 20 11/13/17 06:00 Blood Pressure 154/89 11/13/17 06:00 O2 Sat by Pulse Oximetry (%) 100 11/12/17 21:00 Constitutional: Yes: Well Nourished, No Distress, Calm Musculoskeletal: Yes: Muscle Pain Neurological: Yes: WNL, Alert, Oriented Labs: CBC, BMP 11/13/17 06:05 11/13/17 06:05 Assessment/Plan POD#2 s/p L2-S1 laminectomies, L3-4, L4-5, L5-S1 PLIF, T8-S1 PISF, Multi-layered , complex wound closure under GA. Has PLUG DRILL OPERATOR, also has renal impairment. Renal has been consulted. Will continue PLUG DRILL OPERATOR and add Ofirmev 1000 x 1 and tylenol PO q6h to help with pain control since I want to avoid muscle relaxants due to current renal status.
[2017-11-13] MEDS ORDERED: ACETAMINOPHEN 1000 MG/100 ML VIAL (NON FORMULARY) IVPB ONE (10:24)
[2017-11-13] MEDS: HYDROmorphone *PCA* 10MG/50ML DISP.SYRIN PCA SCH ×2 (10:48→11:54)
--- NOTE | 2017-11-13 12:28 | PN ---
Progress Note, Physician History of Present Illness: Pt seen and examined at bedside. He is awake and alert. He complains of back discomfort. He denies lower ext edema or shortness of breath. He recalls that he has taken many protein supplements and creatine in the past. - Current Medication List Current Medications: Active Medications Fentanyl (Sublimaze Injection -) 50 mcg IVPUSH [id number] PRN PRN Reason: PAIN-PACU ORDER X 4 DOSES ONLY Gabapentin (Neurontin -) 100 mg PO BID LIBBY Gabapentin (Neurontin -) 100 mg PO HS LIBBY Hydromorphone HCl (Dilaudid Head Of Cytogenetics -) 10 mg LAP WINDING MACHINE OPERATOR LAP WINDING MACHINE OPERATOR LIBBY PRN Reason: Protocol Stop: 11/18/17 21:53 Last Admin: 11/13/17 11:54 Dose: 10 mg Sodium Chloride (Normal Saline -) 1,000 mls @ 150 mls/hr IV ASDIR LIBBY Last Admin: 11/13/17 08:14 Dose: 150 mls/hr Ondansetron HCl (Zofran Injection) 4 mg IVPUSH Q6H PRN PRN Reason: NAUSEA AND/OR VOMITING Promethazine HCl (Phenergan Injection -) 12.5 mg IVPB Q6H PRN PRN Reason: NAUSEA-FOR RESCUE AFTER 15 MIN - Objective Vital Signs: Vital Signs Temperature 99.7 F H 11/13/17 10:00 Pulse Rate 104 H 11/13/17 12:00 Respiratory Rate 20 11/13/17 12:00 Blood Pressure 138/81 11/13/17 12:00 O2 Sat by Pulse Oximetry (%) 100 11/13/17 09:00 Constitutional: Yes: Calm Eyes: Yes: Conjunctiva Clear HENT: Yes: Atraumatic Neck: Yes: Supple Cardiovascular: Yes: S1, S2 Respiratory: Yes: CTA Bilaterally Gastrointestinal: Yes: Soft Genitourinary: Yes: Lott Present Musculoskeletal: Yes: Back Pain Extremities: Yes: WNL Edema: No Neurological: Yes: Oriented Psychiatric: Yes: Oriented Labs: CBC, BMP 11/13/17 06:05 11/13/17 06:05 - ....Imaging Ultrasound: Report Reviewed Problem List - Problems (1) JEREMIE (acute kidney injury) Code(s): N17.9 - ACUTE KIDNEY FAILURE, UNSPECIFIED (2) Hyperkalemia Code(s): E87.5 - HYPERKALEMIA (3) Rhabdomyolysis Code(s): M62.82 - RHABDOMYOLYSIS Assessment/Plan Current Medications Generic Name Dose Route Start Last Admin Trade Name Freq PRN Reason Stop Dose Admin Fentanyl 50 mcg 11/11/17 19:50 Sublimaze Injection - IVPUSH [id number] PRN PAIN-PACU ORDER X 4 DOSES ONLY Gabapentin 100 mg 11/13/17 12:13 Neurontin - PO BID LIBBY Gabapentin 100 mg 11/13/17 22:00 Neurontin - PO HS LIBBY Hydromorphone HCl 10 mg 11/13/17 10:25 11/13/17 11:54 Dilaudid Head Of Cytogenetics - LAP WINDING MACHINE OPERATOR 11/18/17 21:53 10 mg LAP WINDING MACHINE OPERATOR LIBBY Administration Protocol Sodium Chloride 1,000 mls @ 150 mls/hr 11/12/17 17:30 11/13/17 08:14 Normal Saline - IV 150 mls/hr ASDIR LIBBY Administration Ondansetron HCl 4 mg 11/11/17 19:50 Zofran Injection IVPUSH Q6H PRN NAUSEA AND/OR VOMITING Promethazine HCl 12.5 mg 11/11/17 19:50 Phenergan Injection - IVPB Q6H PRN NAUSEA-FOR RESCUE AFTER 15 MIN Impression 1. JEREMIE 2. hyperkalemia 3. hx HTN 4. rhabdo 5. s/p laminectomy Plan - renal function is worsening - cpk is improving - will add bicarb to fluids (1/2ns with 75 meq bicarb) - repeat labs in am to monitor trend - will send out further renal workup - renal ultrasound reviewed - monitor urine output, urine is clear - will need to titrate down dose of gabapentin - avoid nsaids and nephrotoxins - replace calcium and magnesium - outpt labs that were done on 10/31 thermo processor 1.1 k 5.5 bun 11 - monitor volume status - will follow Dr Ward
[2017-11-13] MEDS ORDERED: SODIUM CHLORIDE 0.45% 1,000 ML with SODIUM BICARBONATE 8.4% - 50 MEQ IV SCH (12:30)
[2017-11-13] MEDS ORDERED: MAGNESIUM SULF 50% (8.12 MEQ/2 ML-1 GM VIAL) IVPB ONE (12:30)
[2017-11-13] MEDS ORDERED: MAGNESIUM 1GM/D5W - 1 GM/100 ML IVPB IVPB ONE (13:00)
--- NOTE | 2017-11-13 13:00 | PN ---
Teaching Attending Note Name of Resident: Layo Machado ATTENDING PHYSICIAN STATEMENT I saw and evaluated the patient. I reviewed the resident's note and discussed the case with the resident. I agree with the resident's findings and plan as documented. SUBJECTIVE: Pt seen and examined in the ICU. Pain not controlled, renal function worsening. Denies shortness of breath or chest pain. No fevers or chills. Tolerating PO. + flatus. OBJECTIVE: Last Vital Signs Temp Pulse Resp BP Pulse Ox 99.7 F H 104 H 20 138/81 100 11/13/17 10:00 11/13/17 12:00 11/13/17 12:00 11/13/17 12:00 11/13/17 09:00 Intake & Output 11/10/17 11/11/17 11/12/17 11/13/17 23:59 23:59 23:59 23:59 Intake Total 8850 2376 2040 Output Total 4020 1080 1300 Balance 4830 1296 740 Weight 121.2 kg Gen: NAD at rest Heart: tachycardic, regular Lung: decreased breath sounds at the bases Abd: soft, nontender Ext: no edema CBC, BMP 11/13/17 06:05 11/13/17 06:05 Active Medications Calcium Carbonate/Cholecalciferol (Os-Georges 500+D -) 2 tab PO DAILY LIBBY Fentanyl (Sublimaze Injection -) 50 mcg IVPUSH [id number] PRN PRN Reason: PAIN-PACU ORDER X 4 DOSES ONLY Gabapentin (Neurontin -) 100 mg PO BID LIBBY Gabapentin (Neurontin -) 100 mg PO HS LIBBY Hydromorphone HCl (Dilaudid Granite Polisher -) 10 mg PHARMACIST APPRENTICE PHARMACIST APPRENTICE LIBBY PRN Reason: Protocol Stop: 11/18/17 21:53 Last Admin: 11/13/17 11:54 Dose: 10 mg Sodium Bicarbonate 50 meq/ (Sodium Chloride) 1,050 mls @ 175 mls/hr IV ASDIR LIBBY Magnesium Sulfate/Dextrose (Magnesium 1gm/D5w -) 1 gm in 100 mls @ 100 mls/hr IVPB ONCE ONE Stop: 11/13/17 13:59 Ondansetron HCl (Zofran Injection) 4 mg IVPUSH Q6H PRN PRN Reason: NAUSEA AND/OR VOMITING Promethazine HCl (Phenergan Injection -) 12.5 mg IVPB Q6H PRN PRN Reason: NAUSEA-FOR RESCUE AFTER 15 MIN ASSESSMENT AND PLAN: Lumbar Spondylosis s/p L2-S1 Laminectomies/Fusions Acute Blood Loss Anemia Rhabdomyolysis Acute Kidney Injury HTN Hyperkalemia - IVF, bicarb per renal - monitor urine output, creatinine - adjust pain control - incentive spirometry - trend CPK - PO as tolerated - mechanical DVT prophylaxis - disposition per surgery
[2017-11-13] MEDS ORDERED: SODIUM BICARBONATE 8.4% - 50 ML ONE (13:23)
--- NOTE | 2017-11-13 13:25 | PN ---
Physical Exam: SUBJECTIVE: Patient c/o uncontrolled pain and nausea. Passing flatus but no BM yet. Tolerating soft diet. No other acute events overnight. OBJECTIVE: Vital Signs Period Temp Pulse Resp BP Sys/Oy Pulse Ox Last 24 Hr 98.1 F-100.3 F 86-108 16-25 103-155/63-89 100-100 GENERAL: AAOx3, no acute distress, in pain EYES: PERRL, extraocular movements intact, sclera anicteric, conjunctiva clear. No ptosis. ENT: Oropharynx clear without exudates, moist mucous membranes. NECK: Trachea midline, full range of motion, supple. LUNGS: CTAB HEART: RRR, S1, S2 without murmur, rub or gallop. ABDOMEN: Soft, nontender, nondistended, hypoactive bowel sounds, no guarding, no rebound, no hepatosplenomegaly, no masses. EXTREMITIES: 5/5 strength in UE, sensation intact; unable to lift b/l LE, sensation intact, 2+ pulses, warm, well-perfused, no edema. Laboratory Results - last 24 hr 11/11/17 11/12/17 11/12/17 07:50 15:15 21:10 WBC RBC Hgb Hct MCV MCH MCHC RDW Plt Count MPV Neutrophils % Lymphocytes % Monocytes % Eosinophils % Basophils % Sodium 140 Potassium 4.9 Chloride 109 H Carbon Dioxide 24 Anion Gap 7 L BUN 34 H D Creatinine 3.6 H D Creat Clearance w eGFR Random Glucose 99 Calcium 7.7 L Phosphorus Magnesium Ferritin Total Bilirubin AST ALT Alkaline Phosphatase Creatine Kinase 6011 H Creatine Kinase Index 0.6 CK-MB (CK-2) 37.714 H Total Protein Albumin Urine Color Yellow Urine Appearance Cloudy Urine pH 5.0 Ur Specific [place] 1.013 Urine Protein 1+ H Urine Glucose (UA) Negative Urine Ketones Negative Urine Blood 2+ H Urine Nitrite Negative Urine Bilirubin Negative Urine Urobilinogen Negative Ur Leukocyte Esterase Trace Urine WBC (Auto) 6 Urine RBC (Auto) 9 Ur Epithelial Cells Rare Urine Bacteria Few Urine Mucus Rare Ur Random Sodium Ur Random Potassium Ur Random Chloride Urine Creatinine Blood Type O NEGATIVE Crossmatch See Detail 11/12/17 11/13/17 11/13/17 21:10 06:05 06:05 WBC 14.0 H RBC 2.39 L D Hgb 7.0 L D Hct 20.9 L D MCV 87.4 MCH 29.2 MCHC 33.4 RDW 14.2 Plt Count 93 L MPV 10.2 D Neutrophils % 83.3 H Lymphocytes % 7.9 L Monocytes % 8.2 Eosinophils % 0.4 Basophils % 0.2 Sodium 142 Potassium 5.2 H Chloride 112 H Carbon Dioxide 25 Anion Gap 5 L BUN 41 H D Creatinine 4.0 H Creat Clearance w eGFR 16.24 Random Glucose 96 Calcium 7.0 L Phosphorus 4.0 Magnesium 1.5 L Ferritin 551.857 H Total Bilirubin 0.1 L AST 92 H ALT 25 Alkaline Phosphatase 37 L Creatine Kinase 3046 H Creatine Kinase Index 0.3 CK-MB (CK-2) 11.237 H Total Protein 4.1 L Albumin 2.3 L Urine Color Urine Appearance Urine pH Ur Specific [place] Urine Protein Urine Glucose (UA) Urine Ketones Urine Blood Urine Nitrite Urine Bilirubin Urine Urobilinogen Ur Leukocyte Esterase Urine WBC (Auto) Urine RBC (Auto) Ur Epithelial Cells Urine Bacteria Urine Mucus Ur Random Sodium 61 Ur Random Potassium 39.7 Ur Random Chloride 67 Urine Creatinine 100.0 Blood Type Crossmatch 11/13/17 06:05 WBC RBC Hgb Hct MCV MCH MCHC RDW Plt Count MPV Neutrophils % Lymphocytes % Monocytes % Eosinophils % Basophils % Sodium Potassium Chloride Carbon Dioxide Anion Gap BUN Creatinine Creat Clearance w eGFR Random Glucose Calcium Phosphorus Magnesium Ferritin Total Bilirubin AST ALT Alkaline Phosphatase Creatine Kinase Cancelled Creatine Kinase Index CK-MB (CK-2) Total Protein Albumin Urine Color Urine Appearance Urine pH Ur Specific [place] Urine Protein Urine Glucose (UA) Urine Ketones Urine Blood Urine Nitrite Urine Bilirubin Urine Urobilinogen Ur Leukocyte Esterase Urine WBC (Auto) Urine RBC (Auto) Ur Epithelial Cells Urine Bacteria Urine Mucus Ur Random Sodium Ur Random Potassium Ur Random Chloride Urine Creatinine Blood Type Crossmatch Active Medications Generic Name Dose Route Start Last Admin Trade Name Freq PRN Reason Stop Dose Admin Calcium Carbonate/Cholecalciferol 2 tab 11/13/17 12:30 Os-Georges 500+D - PO DAILY LIBBY Fentanyl 50 mcg 11/11/17 19:50 Sublimaze Injection - IVPUSH [id number] PRN PAIN-PACU ORDER X 4 DOSES ONLY Gabapentin 100 mg 11/13/17 12:13 Neurontin - PO BID LIBBY Gabapentin 100 mg 11/13/17 22:00 Neurontin - PO HS LIBBY Hydromorphone HCl 10 mg 11/13/17 10:25 11/13/17 11:54 Dilaudid Decorating Supervisor - [employer]ORER [employer]AN [employer] 11/18/17 21:53 10 mg [employer]ER [employer]SE LIBBY Administration Protocol Sodium Bicarbonate 50 meq/ 1,050 mls @ 175 mls/hr 11/13/17 12:30 Sodium Chloride IV ASDIR LIBBY Magnesium Sulfate/Dextrose 1 gm in 100 mls @ 100 mls/hr 11/13/17 13:00 Magnesium 1gm/D5w - IVPB 11/13/17 13:59 ONCE ONE Ondansetron HCl 4 mg 11/11/17 19:50 Zofran Injection IVPUSH Q6H PRN NAUSEA AND/OR VOMITING Promethazine HCl 12.5 mg 11/11/17 19:50 Phenergan Injection - IVPB Q6H PRN NAUSEA-FOR RESCUE AFTER 15 MIN ASSESSMENT/PLAN: 47 yo M s/p L2-S1 laminectomies, L3-4, L4-5, L5-S1 PLIF, T8-S1 PISF, and Multi- layered, complex wound closure and 2L blood loss. Radiolopathy s/p laminectomies Post-op day 2 - Awaiting bowel movement, tolerating soft diet - Zofran for n/v - LABORER TAN [employer] changed to continuous 0.2mg/hr - Neurotin renally dosed 100mg BID and 100mg HS - Incentive spirometer JEREMIE - Likely 2/2 rhabdo - Improving - Added bicards to 1/2ns - renal U/S unremarkable - Monitor I/O - Avoid all nephrotoxin and renally dose all medications Layo Machado PGY2 Pager: [phone] Visit type - Emergency Visit Emergency Visit: No - New Patient This patient is new to me today: Yes Date on this admission: 11/13/17 - Critical Care Critical Care patient: Yes Total Critical Care Time (in minutes): 30 Critical Care Statement: The care of this patient involved high complexity decision making to prevent further life threatening deterioration of the patient 's condition and/or to evaluate & treat vital organ system(s) failure or risk of failure. - Discharge Referral Referred to [facility] Med P.C.: No
--- NOTE | 2017-11-13 15:09 | PATH ---
Surgical Pathology Report Patient Name: ADRIANO FLANAGAN [facility]. Rec. #: [id number] /Age/Gender: 1970 (Age: 47) / M Account: [id number] Location: [facility] NEWS CONTENT SPECIALIST Taken: 11/11/2017 Received: 11/12/2017 Reported: 11/13/2017 Physicians: Dameon Maki M.D. Specimen(s) Received DISC L3-L4-L5-S1 Clinical History Thoracolumbar spondylolisthesis with bilateral lower extremity radiculopathy Final Diagnosis L3-L4-L5-S1 DISC, T4-S1 POSTERIOR LUMBAR THORACIC FUSION: FRAGMENTS OF INTERVERTEBRAL DISC TISSUE AND BONE. Electronically Signed Zhane Cordova M.D. Gross Description Received in formalin labeled "disc L3-L4-L5-S1," is a 5.0 x 4.5 x 0.8 cm aggregate of flowers fragments of fibrocartilaginous tissue. A guest services representative portion is submitted in one cassette. 11/12/2017 [facility]
--- NOTE | 2017-11-13 15:54 | PN ---
Physical Exam: SUBJECTIVE: Patient seen and examined Overnight, patient continued to have pain. Patient feels cramping and severe back pin this morning. Denies any other complaints. Passing flatus and tolerating soft diet. OBJECTIVE: Vital Signs Period Temp Pulse Resp BP Sys/Yo Pulse Ox Last 24 Hr 98.5 F-100.3 F 98-109 16-25 103-155/63-89 100-100 GENERAL: The patient is awake, alert, and fully oriented, in no acute distress. HEAD: Normal with no signs of trauma. EYES: Extraocular movements intact, sclera anicteric, conjunctiva clear. No ptosis. ENT: Oropharynx clear without exudates, moist mucous membranes. NECK: Trachea midline, full range of motion, supple. LUNGS: Breath sounds equal, clear to auscultation bilaterally, no wheezes, no crackles, no accessory muscle use. HEART: Tachycardic, Regular rhythm, S1, S2 without murmur, rub or gallop. ABDOMEN: Soft, + tenderness in back upon palpation, nondistended, hypoactive bowel sounds, no guarding, no rebound, no hepatosplenomegaly, no masses. EXTREMITIES: 2+ pulses, warm, well-perfused, no edema. NEUROLOGICAL: Cranial nerves II through XII grossly intact. normal speech. 5/5 strength in b/l LE. sensation decreased in right leg above/below knee as well as on foot. 2+ reflexes PSYCH: Normal mood, normal affect. SKIN: Warm, dry, normal turgor, no rashes or lesions noted MSK: EMI DRAIN IN PLACE--draining blood :[place] IN PLACE Laboratory Results - last 24 hr 11/11/17 11/12/17 11/12/17 07:50 15:15 21:10 WBC RBC Hgb Hct MCV MCH MCHC RDW Plt Count MPV Neutrophils % Lymphocytes % Monocytes % Eosinophils % Basophils % Sodium 140 Potassium 4.9 Chloride 109 H Carbon Dioxide 24 Anion Gap 7 L BUN 34 H D Creatinine 3.6 H D Creat Clearance w eGFR Random Glucose 99 Calcium 7.7 L Phosphorus Magnesium Ferritin Total Bilirubin AST ALT Alkaline Phosphatase Creatine Kinase 6011 H Creatine Kinase Index 0.6 CK-MB (CK-2) 37.714 H Total Protein Albumin Urine Color Yellow Urine Appearance Cloudy Urine pH 5.0 Ur Specific [place] 1.013 Urine Protein 1+ H Urine Glucose (UA) Negative Urine Ketones Negative Urine Blood 2+ H Urine Nitrite Negative Urine Bilirubin Negative Urine Urobilinogen Negative Ur Leukocyte Esterase Trace Urine WBC (Auto) 6 Urine RBC (Auto) 9 Ur Epithelial Cells Rare Urine Bacteria Few Urine Mucus Rare Ur Random Sodium Ur Random Potassium Ur Random Chloride Urine Creatinine Blood Type O NEGATIVE Crossmatch See Detail 11/12/17 11/13/17 11/13/17 21:10 06:05 06:05 WBC 14.0 H RBC 2.39 L D Hgb 7.0 L D Hct 20.9 L D MCV 87.4 MCH 29.2 MCHC 33.4 RDW 14.2 Plt Count 93 L MPV 10.2 D Neutrophils % 83.3 H Lymphocytes % 7.9 L Monocytes % 8.2 Eosinophils % 0.4 Basophils % 0.2 Sodium 142 Potassium 5.2 H Chloride 112 H Carbon Dioxide 25 Anion Gap 5 L BUN 41 H D Creatinine 4.0 H Creat Clearance w eGFR 16.24 Random Glucose 96 Calcium 7.0 L Phosphorus 4.0 Magnesium 1.5 L Ferritin 551.857 H Total Bilirubin 0.1 L AST 92 H ALT 25 Alkaline Phosphatase 37 L Creatine Kinase 3046 H Creatine Kinase Index 0.3 CK-MB (CK-2) 11.237 H Total Protein 4.1 L Albumin 2.3 L Urine Color Urine Appearance Urine pH Ur Specific [place] Urine Protein Urine Glucose (UA) Urine Ketones Urine Blood Urine Nitrite Urine Bilirubin Urine Urobilinogen Ur Leukocyte Esterase Urine WBC (Auto) Urine RBC (Auto) Ur Epithelial Cells Urine Bacteria Urine Mucus Ur Random Sodium 61 Ur Random Potassium 39.7 Ur Random Chloride 67 Urine Creatinine 100.0 Blood Type Crossmatch 11/13/17 06:05 WBC RBC Hgb Hct MCV MCH MCHC RDW Plt Count MPV Neutrophils % Lymphocytes % Monocytes % Eosinophils % Basophils % Sodium Potassium Chloride Carbon Dioxide Anion Gap BUN Creatinine Creat Clearance w eGFR Random Glucose Calcium Phosphorus Magnesium Ferritin Total Bilirubin AST ALT Alkaline Phosphatase Creatine Kinase Cancelled Creatine Kinase Index CK-MB (CK-2) Total Protein Albumin Urine Color Urine Appearance Urine pH Ur Specific [place] Urine Protein Urine Glucose (UA) Urine Ketones Urine Blood Urine Nitrite Urine Bilirubin Urine Urobilinogen Ur Leukocyte Esterase Urine WBC (Auto) Urine RBC (Auto) Ur Epithelial Cells Urine Bacteria Urine Mucus Ur Random Sodium Ur Random Potassium Ur Random Chloride Urine Creatinine Blood Type Crossmatch Active Medications Generic Name Dose Route Start Last Admin Trade Name Freq PRN Reason Stop Dose Admin Calcium Carbonate/Cholecalciferol 2 tab 11/13/17 12:30 Os-Georges 500+D - PO DAILY LIBBY Fentanyl 50 mcg 11/11/17 19:50 Sublimaze Injection - IVPUSH [id number] PRN PAIN-PACU ORDER X 4 DOSES ONLY Gabapentin 100 mg 11/13/17 12:13 Neurontin - PO BID LIBBY Gabapentin 100 mg 11/13/17 22:00 Neurontin - PO HS LIBBY Hydromorphone HCl 10 mg 11/13/17 10:25 11/13/17 11:54 Dilaudid Rubber Production Machine Operator - PERSONAL PROTECTION SPECIALIST 11/18/17 21:53 10 mg PERSONAL PROTECTION SPECIALIST LIBBY Administration Protocol Sodium Bicarbonate 50 meq/ 1,050 mls @ 175 mls/hr 11/13/17 12:30 11/13/17 13: 27 Sodium Chloride IV 175 mls/hr ASDIR LIBBY Administration Ondansetron HCl 4 mg 11/11/17 19:50 Zofran Injection IVPUSH Q6H PRN NAUSEA AND/OR VOMITING Promethazine HCl 12.5 mg 11/11/17 19:50 Phenergan Injection - IVPB Q6H PRN NAUSEA-FOR RESCUE AFTER 15 MIN ASSESSMENT/PLAN: 47 year old M with no pmh presented post op L2-S1 laminectomies, L3-4, L4-5, L5- S1 PLIF, T8-S1 PISF, and Multi-layered, complex wound closure (~40cm). #Post op day 2 s/p L2-S1 laminectomies, L3-4, L4-5, L5-S1 PLIF, T8-S1 PISF, and Multi-layered, complex wound closure -Zofran/Promethazine for nausea -Pain control with Gabapentin, Fentanyl, and dilaudid litigation coordinator (started on continuous dose today) -Incentive spirometer/Chest PT -PT/OT, OOB, weight bearing as tolerated #JEREMIE 2/2 to ?rhabdo vs indomethacin use, baseline is 1.1 -CPK elevated -1/2 NS + sodium bicarb @ 175 cc/hr -Monitor cr, urine output -Renal/bladder u/s--no abnormalities -Renal consult, Dr. Ward #Acute blood loss anemia 2/2 to blood loss likely from surgery -1 prbc given today -will monitor cbc #FEN/GI -1/2 NS + sodium bicarb @ 175 cc/hr -wnl -soft diet #PPx -scds -teds #Dispo -Continue icu level of care Visit type - Emergency Visit Emergency Visit: Yes ED Registration Date: 11/11/17 Care time: The patient presented to the Emergency Department on the above date and was hospitalized for further evaluation of their emergent condition. - New Patient This patient is new to me today: No - Critical Care Critical Care patient: Yes Total Critical Care Time (in minutes): 40 Critical Care Statement: The care of this patient involved high complexity decision making to prevent further life threatening deterioration of the patient 's condition and/or to evaluate & treat vital organ system(s) failure or risk of failure.
--- NOTE | 2017-11-13 17:15 | PN ---
Teaching Attending Note Name of Resident: Arnel Nettles ATTENDING PHYSICIAN STATEMENT I saw and evaluated the patient. I reviewed the resident's note and discussed the case with the resident. I agree with the resident's findings and plan as documented. SUBJECTIVE:seen at 10:30 am no fever or chills . has lower back pain. no weakness, in LWE , no urinary or fecal incontinence OBJECTIVE: NAD Cv : RRR lungs : CTAB MS : wound dressing over the T, ad L spine . with EMI drainage with sanguinous fluid in neuro of LE : LLE: strength 5/5 in hip flexion , knee flexionand extension and ankle dorsiflexionand plantarflexion RLE: 3/5 hip flexion , knee felxion and extension was limited by pain in back . ankle dorsiflexion and plantarflexion is 5/5 sensation to light touch decreased in lateral aspect of R LE ( thigh, leg adn foot ) reflexes 2+ knee jerk b/l ASSESSMENT AND PLAN: 47 y/o man with h/o back pain who presented for laminectomy and fusion 1- Lower back pain s/p Laminectomies and fusion . cont with pain. no loss of bowel or bladder control - dilaudid infusion added. - cont PRN IV push - cont current dose of neurontin , less than home dose - follow neuro exam and EMI drainage 2- JEREMIE , 2/2 rhabdo and possible hypoperfusion during sx - renal function worsened - cont IVF - bicarb added - monitor K level 3- Rhabdo : - cont IVF - repeat CPK in am 4- Acute blood loSS ANEMIA: - transfuse one unit . - HB in am 5- ICU level of care SCDs , no chemical prophylaxis for now
[2017-11-13] MEDS: CALCIUM 500MG/VIT-D 200 UNITS COMBO TABLET (FP) PO SCH (18:28)
[2017-11-13] MEDS: SODIUM BICARBONATE 8.4% - 50 MEQ in SODIUM CHLORIDE 0.45% 1,000 ML IV SCH (19:48)
[2017-11-13 20:15] LABS: HEMATOCRIT 21.3 % (35.4-49); HEMOGLOBIN 7.1 GM/dL (11.7-16.9); MCH 29.1 pg (25.7-33.7); MCHC 33.5 g/dl (32.0-35.9); RBC 2.45 M/mm3 (4.00-5.60); WHITE BLOOD COUNT 11.1 K/mm3 (4.0-10.0)
[2017-11-13 20:16] LABS: BASO % 0.2 % (0-2.0); EOS % 1.5 % (0-4.5); MEAN PLT VOLUME 9.5 fl (7.5-11.1); NEUT % 79.3 % (42.8-82.8); PLATELET COUNT 91 K/MM3 (134-434)
[2017-11-13] MEDS ORDERED: CYCLOBENZAPRINE HCL 5 MG TABLET PO ONE (21:15)
[2017-11-13] MEDS: GABAPENTIN 100 MG CAPSULE (FP) PO SCH ×2 (21:28→21:29)
[2017-11-13] MEDS ORDERED: CYCLOBENZAPRINE HCL 10 MG TABLET (FP) PO ONE (21:30)
[2017-11-14 06:49] LABS: BASO % 0.4 % (0-2.0); EOS % 1.5 % (0-4.5); HEMOGLOBIN 7.3 GM/dL (11.7-16.9); LYMPH % 8.9 % (8-40); MCH 29.7 pg (25.7-33.7); MCHC 34.6 g/dl (32.0-35.9); MEAN CELL VOLUME 85.8 fl (80-96); MEAN PLT VOLUME 9.4 fl (7.5-11.1); MONO % 7.6 % (3.8-10.2); NEUT % 81.6 % (42.8-82.8); PLATELET COUNT 93 K/MM3 (134-434); RBC 2.44 M/mm3 (4.00-5.60); RDW 14.3 % (11.9-15.9); WHITE BLOOD COUNT 9.2 K/mm3 (4.0-10.0)
[2017-11-14 07:44] LABS: ALBUMIN 2.2 g/dl (3.4-5.0); ANION GAP 6 (8-16); BLOOD UREA NITROGEN 37 mg/dL (7-18); CALCIUM 7.4 mg/dL (8.5-10.1); CHLORIDE 108 mmol/L (98-107); CO2 26 mmol/L (21-32); GLUCOSE,RANDOM 90 mg/dL (74-106); POTASSIUM 4.2 mmol/L (3.5-5.1); SODIUM 140 mmol/L (136-145)
[2017-11-14 08:01] LABS: ALK PHOS 39 U/L (45-117); BILIRUBIN,TOTAL 0.4 mg/dL (0.2-1.0); CREATININE 3.5 mg/dL (0.7-1.3); SGOT/AST 66 U/L (15-37); SGPT/ALT 15 U/L (12-78); TOT PROT 4.4 g/dl (6.4-8.2)
[2017-11-14] MEDS ORDERED: SODIUM BICARBONATE 8.4% - 50 ML ONE (08:49)
[2017-11-14] MEDS: SODIUM BICARBONATE 8.4% - 50 MEQ in SODIUM CHLORIDE 0.45% 1,000 ML IV SCH ×2 (08:53→19:09)
[2017-11-14] MEDS: GABAPENTIN 100 MG CAPSULE (FP) PO SCH ×4 (09:50→21:12)
[2017-11-14] MEDS: CALCIUM 500MG/VIT-D 200 UNITS COMBO TABLET (FP) PO SCH (09:50)
--- NOTE | 2017-11-14 10:09 | PN ---
Progress Note (short form) - Note Progress Note: Anesthesia Post op/pain Pt seen and examined S:alert and awake c/o mild pain O: Vital Signs Temperature 99.5 F 11/14/17 06:00 Pulse Rate 101 H 11/14/17 08:00 Respiratory Rate 16 11/14/17 08:00 Blood Pressure 165/91 11/14/17 08:00 O2 Sat by Pulse Oximetry (%) 100 11/13/17 21:00 CBC, BMP 11/14/17 06:10 11/14/17 06:10 A/P: Current Active Problems JEREMIE (acute kidney injury) (Acute) Hyperkalemia (Acute) Rhabdomyolysis (Acute) s/p PLIF laminectomy Uses TOOLMAKER GRADE THREE Doing well post op Continue TOOLMAKER GRADE THREE Continue current care Geovanni Carrillo MD
[2017-11-14] MEDS: HYDROmorphone *PCA* 10MG/50ML DISP.SYRIN PCA SCH ×2 (10:28→10:35)
--- NOTE | 2017-11-14 11:01 | PN ---
Teaching Attending Note Name of Resident: Tyrese Krishnan ATTENDING PHYSICIAN STATEMENT I saw and evaluated the patient. I reviewed the resident's note and discussed the case with the resident. I agree with the resident's findings and plan as documented. SUBJECTIVE: Patient seen and examined in the ICU. Pain 03/07. Just medicated. No CP or SOB. No BM. OBJECTIVE: Intake & Output 11/11/17 11/12/17 11/13/17 11/14/17 23:59 23:59 23:59 23:59 Intake Total 8850 2376 3840 2580 Output Total 4020 1080 2700 350 Balance 4830 1296 1140 2230 Weight 267 lb 3.2 oz Last Vital Signs Temp Pulse Resp BP Pulse Ox 99.5 F 90 18 155/96 100 11/14/17 06:00 11/14/17 10:28 11/14/17 10:28 11/14/17 10:28 11/13/17 21:00 Active Medications Calcium Carbonate/Cholecalciferol (Os-Georges 500+D -) 2 tab PO DAILY [facility] Last Admin: 11/14/17 09:50 Dose: 2 tab Fentanyl (Sublimaze Injection -) 50 mcg IVPUSH [id number] PRN PRN Reason: PAIN-PACU ORDER X 4 DOSES ONLY Gabapentin (Neurontin -) 100 mg PO BID [facility] Last Admin: 11/14/17 10:25 Dose: 100 mg Gabapentin (Neurontin -) 100 mg PO HS [facility] Last Admin: 11/13/17 21:29 Dose: 100 mg Hydromorphone HCl (Dilaudid Associate Research Scientist -) 10 mg AUTOMOTIVE SALES REPRESENTATIVE AUTOMOTIVE SALES REPRESENTATIVE [facility] PRN Reason: Protocol Stop: 11/18/17 21:53 Last Admin: 11/14/17 10:35 Dose: Not Given Sodium Bicarbonate 50 meq/ (Sodium Chloride) 1,050 mls @ 175 mls/hr IV ASDIR [facility] Last Admin: 11/14/17 08:53 Dose: 175 mls/hr Ondansetron HCl (Zofran Injection) 4 mg IVPUSH Q6H PRN PRN Reason: NAUSEA AND/OR VOMITING Promethazine HCl (Phenergan Injection -) 12.5 mg IVPB Q6H PRN PRN Reason: NAUSEA-FOR RESCUE AFTER 15 MIN GENERAL: AAOx3, no acute distress, in pain EYES: PERRL, extraocular movements intact, sclera anicteric, conjunctiva clear. No ptosis. ENT: Oropharynx clear without exudates, moist mucous membranes. NECK: Trachea midline, full range of motion, supple. LUNGS: CTAB HEART: RRR, S1, S2 without murmur, rub or gallop. ABDOMEN: Soft, nontender, nondistended, hypoactive bowel sounds, no guarding, no rebound, no hepatosplenomegaly, no masses. EXTREMITIES: 5/5 strength in UE, sensation intact; unable to lift b/l LE, sensation intact, 2+ pulses, warm, well-perfused, no edema. Laboratory Results - last 24 hr 11/11/17 11/13/17 11/13/17 07:50 06:05 19:20 WBC RBC Hgb Hct MCV MCH MCHC RDW Plt Count MPV Neutrophils % Lymphocytes % Monocytes % Eosinophils % Basophils % Sodium 142 Potassium 5.2 H 4.1 D Chloride 112 H Carbon Dioxide 25 Anion Gap 5 L BUN 41 H D Creatinine 4.0 H Creat Clearance w eGFR 16.24 Random Glucose 96 Calcium 7.0 L Phosphorus 4.0 Magnesium 1.5 L Ferritin 551.857 H Total Bilirubin 0.1 L AST 92 H ALT 25 Alkaline Phosphatase 37 L Creatine Kinase 3046 H Creatine Kinase Index 0.3 CK-MB (CK-2) 11.237 H Total Protein 4.1 L Albumin 2.3 L Blood Type O NEGATIVE Crossmatch See Detail 11/13/17 11/14/17 11/14/17 20:00 06:10 06:10 WBC 11.1 H 9.2 RBC 2.45 L 2.44 L Hgb 7.1 L 7.3 L Hct 21.3 L 21.0 L MCV 87.0 85.8 MCH 29.1 29.7 MCHC 33.5 34.6 RDW 14.0 14.3 Plt Count 91 L 93 L MPV 9.5 9.4 Neutrophils % 79.3 81.6 Lymphocytes % 12.0 D 8.9 D Monocytes % 7.0 7.6 Eosinophils % 1.5 D 1.5 Basophils % 0.2 0.4 Sodium 140 Potassium 4.2 Chloride 108 H Carbon Dioxide 26 Anion Gap 6 L BUN 37 H Creatinine 3.5 H Creat Clearance w eGFR 18.95 Random Glucose 90 Calcium 7.4 L Phosphorus Magnesium 2.0 D Ferritin Total Bilirubin 0.4 D AST 66 H D ALT 15 D Alkaline Phosphatase 39 L Creatine Kinase 1714 H Creatine Kinase Index 0.2 CK-MB (CK-2) 3.754 H Total Protein 4.4 L Albumin 2.2 L Blood Type Crossmatch ASSESSMENT/PLAN: 47 yo M s/p L2-S1 laminectomies, L3-4, L4-5, L5-S1 PLIF, T8-S1 PISF, and Multi- layered, complex wound closure and 2L blood loss. Awaiting bowel movement, tolerating soft diet Zofran for n/v AUTOMOTIVE SALES REPRESENTATIVE changed to continuous 0.2mg/hr Neurotin renally dosed 100mg BID and 100mg HS Incentive spirometer IVF with bicarb per renal O2 as needed Dr Bryant Critical care time spent in reviewing chart, evaluating patient and formulating plan - 36 minutes.
[2017-11-14] MEDS ORDERED: ONDANSETRON 4 MG/2 ML VIAL IVPUSH ONE (11:16)
--- NOTE | 2017-11-14 11:38 | PN ---
Physical Exam: SUBJECTIVE: Patient seen and examined No acute events overnight. Pain is mildly improved--8/10 today. Denies fever, chills, numbness/tingling. OBJECTIVE: Vital Signs Period Temp Pulse Resp BP Sys/Yo Pulse Ox Last 24 Hr 99 F-99.8 F 90-109 14-22 129-165/66-100 98-100 GENERAL: The patient is awake, alert, and fully oriented, in no acute distress. HEAD: Normal with no signs of trauma. EYES: Extraocular movements intact, sclera anicteric, conjunctiva clear. No ptosis. ENT: Oropharynx clear without exudates, moist mucous membranes. NECK: Trachea midline, full range of motion, supple. LUNGS: Breath sounds equal, clear to auscultation bilaterally, no wheezes, no crackles, no accessory muscle use. HEART: Tachycardic, Regular rhythm, S1, S2 without murmur, rub or gallop. ABDOMEN: Soft, nontender, nondistended, hypoactive bowel sounds, no guarding, no rebound, no hepatosplenomegaly, no masses. EXTREMITIES: 2+ pulses, warm, well-perfused, no edema. NEUROLOGICAL: Cranial nerves II through XII grossly intact. normal speech. 5/5 strength in LLE proximally and distally, 3/5 strength in RLE proximally and 5/5 distally. sensation intact b/l, 2+ reflexes PSYCH: Normal mood, normal affect. SKIN: Warm, dry, normal turgor, no rashes or lesions noted MSK: EMI DRAIN IN PLACE :[place] IN PLACE Laboratory Results - last 24 hr 11/11/17 11/13/17 11/13/17 07:50 06:05 19:20 WBC RBC Hgb Hct MCV MCH MCHC RDW Plt Count MPV Neutrophils % Lymphocytes % Monocytes % Eosinophils % Basophils % Sodium 142 Potassium 5.2 H 4.1 D Chloride 112 H Carbon Dioxide 25 Anion Gap 5 L BUN 41 H D Creatinine 4.0 H Creat Clearance w eGFR 16.24 Random Glucose 96 Calcium 7.0 L Phosphorus 4.0 Magnesium 1.5 L Ferritin 551.857 H Total Bilirubin 0.1 L AST 92 H ALT 25 Alkaline Phosphatase 37 L Creatine Kinase 3046 H Creatine Kinase Index 0.3 CK-MB (CK-2) 11.237 H Total Protein 4.1 L Albumin 2.3 L Blood Type O NEGATIVE Crossmatch See Detail 11/13/17 11/14/17 11/14/17 20:00 06:10 06:10 WBC 11.1 H 9.2 RBC 2.45 L 2.44 L Hgb 7.1 L 7.3 L Hct 21.3 L 21.0 L MCV 87.0 85.8 MCH 29.1 29.7 MCHC 33.5 34.6 RDW 14.0 14.3 Plt Count 91 L 93 L MPV 9.5 9.4 Neutrophils % 79.3 81.6 Lymphocytes % 12.0 D 8.9 D Monocytes % 7.0 7.6 Eosinophils % 1.5 D 1.5 Basophils % 0.2 0.4 Sodium 140 Potassium 4.2 Chloride 108 H Carbon Dioxide 26 Anion Gap 6 L BUN 37 H Creatinine 3.5 H Creat Clearance w eGFR 18.95 Random Glucose 90 Calcium 7.4 L Phosphorus Magnesium 2.0 D Ferritin Total Bilirubin 0.4 D AST 66 H D ALT 15 D Alkaline Phosphatase 39 L Creatine Kinase 1714 H Creatine Kinase Index 0.2 CK-MB (CK-2) 3.754 H Total Protein 4.4 L Albumin 2.2 L Blood Type Crossmatch Active Medications Generic Name Dose Route Start Last Admin Trade Name Freq PRN Reason Stop Dose Admin Calcium Carbonate/Cholecalciferol 2 tab 11/13/17 12:30 11/14/17 09:50 Os-Georges 500+D - PO 2 tab DAILY LIBBY Administration Cyclobenzaprine HCl 5 mg 11/14/17 11:30 Flexeril - PO DAILY LIBBY Fentanyl 50 mcg 11/11/17 19:50 Sublimaze Injection - IVPUSH [id number] PRN PAIN-PACU ORDER X 4 DOSES ONLY Gabapentin 100 mg 11/13/17 12:13 11/14/17 10:25 Neurontin - PO 100 mg BID LIBBY Administration Gabapentin 100 mg 11/13/17 22:00 11/13/17 21:29 Neurontin - PO 100 mg HS LIBBY Administration Hydromorphone HCl 10 mg 11/13/17 10:25 11/14/17 10:35 Dilaudid Radial Drill Operator For Plastic - ELECTRICAL ENGINEERING MANAGER 11/18/17 21:53 Not Given ELECTRICAL ENGINEERING MANAGER LIBBY Protocol Sodium Bicarbonate 50 meq/ 1,050 mls @ 175 mls/hr 11/13/17 18:13 11/14/17 08: 53 Sodium Chloride IV 175 mls/hr ASDIR LIBBY Administration Ondansetron HCl 4 mg 11/11/17 19:50 Zofran Injection IVPUSH Q6H PRN NAUSEA AND/OR VOMITING Promethazine HCl 12.5 mg 11/11/17 19:50 Phenergan Injection - IVPB Q6H PRN NAUSEA-FOR RESCUE AFTER 15 MIN ASSESSMENT/PLAN: 47 year old M with no pmh presented post op L2-S1 laminectomies, L3-4, L4-5, L5- S1 PLIF, T8-S1 PISF, and Multi-layered, complex wound closure (~40cm). #Post op day 2 s/p L2-S1 laminectomies, L3-4, L4-5, L5-S1 PLIF, T8-S1 PISF, and Multi-layered, complex wound closure -Zofran/Promethazine for nausea -Pain control with Gabapentin and dilaudid neonatal icu coordinator -Incentive spirometer/Chest PT -PT/OT, OOB, weight bearing as tolerated -can dc reno when patient is ambulating -Passing flatus #JEREMIE 2/2 to ?rhabdo vs indomethacin use, baseline is 1.1 -CPK elevated, improving today -1/2 NS + sodium bicarb @ 175 cc/hr -Monitor cr, urine output -Renal/bladder u/s--no abnormalities -Renal consult, Dr. Ward -immunology/serology pending #Acute blood loss anemia 2/2 to blood loss likely from surgery -1 prbc given yesterday -will monitor cbc #FEN/GI -1/2 NS + sodium bicarb @ 175 cc/hr -wnl -soft diet #PPx -scds -teds #Dispo -Continue icu level of care Visit type - Emergency Visit Emergency Visit: Yes ED Registration Date: 11/11/17 Care time: The patient presented to the Emergency Department on the above date and was hospitalized for further evaluation of their emergent condition. - New Patient This patient is new to me today: No - Critical Care Critical Care patient: Yes Total Critical Care Time (in minutes): 36 Critical Care Statement: The care of this patient involved high complexity decision making to prevent further life threatening deterioration of the patient 's condition and/or to evaluate & treat vital organ system(s) failure or risk of failure.
--- NOTE | 2017-11-14 12:28 | PN ---
Progress Note, Physician History of Present Illness: Pt seen and examined at bedside. He is out of bed to chair. He denies shortness of breath or lower ext edema. - Current Medication List Current Medications: Active Medications Calcium Carbonate/Cholecalciferol (Os-Georges 500+D -) 2 tab PO DAILY [facility] Last Admin: 11/14/17 09:50 Dose: 2 tab Cyclobenzaprine HCl (Flexeril -) 5 mg PO DAILY [facility] Fentanyl (Sublimaze Injection -) 50 mcg IVPUSH [id number] PRN PRN Reason: PAIN-PACU ORDER X 4 DOSES ONLY Gabapentin (Neurontin -) 100 mg PO BID [facility] [place] Last Admin: 11/14/17 10:25 Dose: 100 mg Gabapentin (Neurontin -) 100 mg PO HS [facility] [place] Last Admin: 11/13/17 21:29 Dose: 100 mg Hydromorphone HCl (Dilaudid Distilling Department Supervisor -) 10 mg MANAGER IMAGING MANAGER IMAGING [facility] PRN Reason: Protocol Stop: 11/18/17 21:53 Last Admin: 11/14/17 10:35 Dose: Not Given Sodium Bicarbonate 50 meq/ (Sodium Chloride) 1,050 mls @ 175 mls/hr IV ASDIR [facility] Last Admin: 11/14/17 08:53 Dose: 175 mls/hr Ondansetron HCl (Zofran Injection) 4 mg IVPUSH Q6H PRN PRN Reason: NAUSEA AND/OR VOMITING Promethazine HCl (Phenergan Injection -) 12.5 mg IVPB Q6H PRN PRN Reason: NAUSEA-FOR RESCUE AFTER 15 MIN - Objective Vital Signs: Vital Signs Temperature 99.5 F 11/14/17 06:00 Pulse Rate 90 11/14/17 10:28 Respiratory Rate 18 11/14/17 10:28 Blood Pressure 155/96 11/14/17 10:28 O2 Sat by Pulse Oximetry (%) 98 11/14/17 09:00 Constitutional: Yes: Calm Eyes: Yes: Conjunctiva Clear HENT: Yes: Atraumatic Cardiovascular: Yes: S1, S2 Respiratory: Yes: CTA Bilaterally Gastrointestinal: Yes: Normal Bowel Sounds, Soft Genitourinary: Yes: Lott Present Musculoskeletal: Yes: Back Pain Extremities: Yes: WNL Edema: No Neurological: Yes: Oriented Psychiatric: Yes: Oriented Labs: CBC, BMP 11/14/17 06:10 11/14/17 06:10 Problem List - Problems (1) JEREMIE (acute kidney injury) Code(s): N17.9 - ACUTE KIDNEY FAILURE, UNSPECIFIED (2) Hyperkalemia Code(s): E87.5 - HYPERKALEMIA (3) Rhabdomyolysis Code(s): M62.82 - RHABDOMYOLYSIS Assessment/Plan Current Medications Generic Name Dose Route Start Last Admin Trade Name Freq PRN Reason Stop Dose Admin Calcium Carbonate/Cholecalciferol 2 tab 11/13/17 12:30 11/14/17 09:50 Os-Georges 500+D - PO 2 tab DAILY LIBBY Administration Cyclobenzaprine HCl 5 mg 11/14/17 11:30 Flexeril - PO DAILY LIBBY Fentanyl 50 mcg 11/11/17 19:50 Sublimaze Injection - IVPUSH [id number] PRN PAIN-PACU ORDER X 4 DOSES ONLY Gabapentin 100 mg 11/13/17 12:13 11/14/17 10:25 Neurontin - PO 100 mg BID LIBBY Administration Gabapentin 100 mg 11/13/17 22:00 11/13/17 21:29 Neurontin - PO 100 mg HS LIBBY Administration Hydromorphone HCl 10 mg 11/13/17 10:25 11/14/17 10:35 Dilaudid Distilling Department Supervisor - MANAGER IMAGING 11/18/17 21:53 Not Given MANAGER IMAGING [facility] Protocol Sodium Bicarbonate 50 meq/ 1,050 mls @ 175 mls/hr 11/13/17 18:13 11/14/17 08: 53 Sodium Chloride IV 175 mls/hr ASDIR LIBBY Administration Ondansetron HCl 4 mg 11/11/17 19:50 Zofran Injection IVPUSH Q6H PRN NAUSEA AND/OR VOMITING Promethazine HCl 12.5 mg 11/11/17 19:50 Phenergan Injection - IVPB Q6H PRN NAUSEA-FOR RESCUE AFTER 15 MIN Impression 1. JEREMIE 2. hyperkalemia 3. hx HTN 4. rhabdo 5. s/p laminectomy 6. anemia Plan - renal function is starting to improve - cont to monitor resident in diagnostic radiology - cont to monitor cpk - renal workup is in progress - cont with fluids - pt will need anemia workup - follow spep - check stool for occult blood - outpt labs that were done on 10/31 resident in diagnostic radiology 1.1 k 5.5 bun 11 - monitor volume status - will follow Dr Ward
--- NOTE | 2017-11-14 12:35 | PN ---
Physical Exam: SUBJECTIVE: Patient seen and examined in ICU. No acute events overnight. Patient complaining of pain to lower back and right abdomen. Denies fevers, chills, chest pain, shortness of breath. Transfused 1 unit yesterday. OBJECTIVE: Vital Signs Period Temp Pulse Resp BP Sys/Yo Pulse Ox Last 24 Hr 99 F-99.8 F 90-109 14-22 129-165/82-100 98-100 GENERAL: The patient is awake, alert, and fully oriented, in no acute distress. HEAD: Normal with no signs of trauma. EYES: PERRL, extraocular movements intact, sclera anicteric, conjunctiva clear. NECK: Trachea midline, full range of motion, supple. LUNGS: Breath sounds equal, clear to auscultation bilaterally, no wheezes, no crackles, no accessory muscle use. HEART: Regular rate and rhythm, S1, S2 without murmur, rub or gallop. ABDOMEN: Soft, tender along right abdomen, no guarding, no rebound. EXTREMITIES: 2+ pulses, warm, well-perfused, no edema. NEUROLOGICAL: Cranial nerves II through XII grossly intact. Normal speech, gait not observed. Laboratory Results - last 24 hr 11/13/17 11/13/17 11/13/17 06:05 19:20 20:00 WBC 11.1 H RBC 2.45 L Hgb 7.1 L Hct 21.3 L MCV 87.0 MCH 29.1 MCHC 33.5 RDW 14.0 Plt Count 91 L MPV 9.5 Neutrophils % 79.3 Lymphocytes % 12.0 D Monocytes % 7.0 Eosinophils % 1.5 D Basophils % 0.2 Sodium 142 Potassium 5.2 H 4.1 D Chloride 112 H Carbon Dioxide 25 Anion Gap 5 L BUN 41 H D Creatinine 4.0 H Creat Clearance w eGFR 16.24 Random Glucose 96 Calcium 7.0 L Phosphorus 4.0 Magnesium 1.5 L Ferritin 551.857 H Total Bilirubin 0.1 L AST 92 H ALT 25 Alkaline Phosphatase 37 L Creatine Kinase 3046 H Creatine Kinase Index 0.3 CK-MB (CK-2) 11.237 H Total Protein 4.1 L Albumin 2.3 L 11/14/17 11/14/17 06:10 06:10 WBC 9.2 RBC 2.44 L Hgb 7.3 L Hct 21.0 L MCV 85.8 MCH 29.7 MCHC 34.6 RDW 14.3 Plt Count 93 L MPV 9.4 Neutrophils % 81.6 Lymphocytes % 8.9 D Monocytes % 7.6 Eosinophils % 1.5 Basophils % 0.4 Sodium 140 Potassium 4.2 Chloride 108 H Carbon Dioxide 26 Anion Gap 6 L BUN 37 H Creatinine 3.5 H Creat Clearance w eGFR 18.95 Random Glucose 90 Calcium 7.4 L Phosphorus Magnesium 2.0 D Ferritin Total Bilirubin 0.4 D AST 66 H D ALT 15 D Alkaline Phosphatase 39 L Creatine Kinase 1714 H Creatine Kinase Index 0.2 CK-MB (CK-2) 3.754 H Total Protein 4.4 L Albumin 2.2 L Active Medications Generic Name Dose Route Start Last Admin Trade Name Freq PRN Reason Stop Dose Admin Calcium Carbonate/Cholecalciferol 2 tab 11/13/17 12:30 11/14/17 09:50 Os-Georges 500+D - PO 2 tab DAILY LIBBY Administration Cyclobenzaprine HCl 5 mg 11/14/17 11:30 Flexeril - PO DAILY LIBBY Fentanyl 50 mcg 11/11/17 19:50 Sublimaze Injection - IVPUSH [id number] PRN PAIN-PACU ORDER X 4 DOSES ONLY Gabapentin 100 mg 11/13/17 12:13 11/14/17 10:25 Neurontin - PO 100 mg BID LIBBY Administration Gabapentin 100 mg 11/13/17 22:00 11/13/17 21:29 Neurontin - PO 100 mg HS LIBBY Administration Hydromorphone HCl 10 mg 11/13/17 10:25 11/14/17 10:35 Dilaudid Liquefied Natural Gas Plant Operator - DISTRICT PLANT SUPERVISOR 11/18/17 21:53 Not Given DISTRICT PLANT SUPERVISOR [facility] Protocol Sodium Bicarbonate 50 meq/ 1,050 mls @ 175 mls/hr 11/13/17 18:13 11/14/17 08: 53 Sodium Chloride IV 175 mls/hr ASDIR LIBBY Administration Ondansetron HCl 4 mg 11/11/17 19:50 Zofran Injection IVPUSH Q6H PRN NAUSEA AND/OR VOMITING Promethazine HCl 12.5 mg 11/11/17 19:50 Phenergan Injection - IVPB Q6H PRN NAUSEA-FOR RESCUE AFTER 15 MIN ASSESSMENT/PLAN: 47M with history of HTN in ICU after multiple spinal surgeries. Neuro #Post-op pain -DISTRICT PLANT SUPERVISOR changed to continuous -Zofran for nausea -Avoid morphine given episode of delirium -Back spasms, given flexeril. Renal #Elevated Cr level, possible rhabdo, baseline 1.1 per PCP -Cr hit 4.0 maximum yesterday, now 3.5 -2.7L of output from reno yesterday -CK down to 1714 from max of 6k -WILL FOLLOW renal diet Heme/Onc #Anemia -Lost ~2L during surgery -Drains active -Given 1 unit yesterday -Will continue to monitor FEN/GI #Advance diet per surgery #Hyperkalemia -resolved, will monitor PPx -Mechanical ppx only -Incentive spirometer Dispo- transferred to surgical floor per Dr Maki, full code Visit type - Emergency Visit Emergency Visit: Yes ED Registration Date: 11/11/17 Care time: The patient presented to the Emergency Department on the above date and was hospitalized for further evaluation of their emergent condition. - New Patient This patient is new to me today: No - Critical Care Critical Care patient: Yes Total Critical Care Time (in minutes): 35 Critical Care Statement: The care of this patient involved high complexity decision making to prevent further life threatening deterioration of the patient 's condition and/or to evaluate & treat vital organ system(s) failure or risk of failure.
[2017-11-14] MEDS ORDERED: SODIUM BICARBONATE 8.4% 50 MEQ/50 ML VIAL ONE (13:36)
[2017-11-14] MEDS: CYCLOBENZAPRINE HCL 10 MG TABLET (FP) PO SCH (13:57)
--- NOTE | 2017-11-14 15:53 | PN ---
Teaching Attending Note Name of Resident: Arnel Nettles ATTENDING PHYSICIAN STATEMENT I saw and evaluated the patient. I reviewed the resident's note and discussed the case with the resident. I agree with the resident's findings and plan as documented. SUBJECTIVE: no fever or chills. has no abd pain . has no N/V. lower back pain improved , has difficulty moving in bed. OBJECTIVE: NAD Cv : RRR lungs : CTAB MS : wound dressing over the T, ad L spine . with EMI drainage with sanguinous fluid in neuro of LE : LLE: strength 3/5 in hip flexion ( limited due ot pain ), 5/5 knee flexion and extension and ankle dorsiflexion and plantarflexion RLE: can't evaluate hip flexion due to pain, 5/5 knee felxion and extension and ankle dorsiflexion and plantarflexion sensation to light touch NL in b/l LE reflexes 1+ knee jerk b/l ASSESSMENT AND PLAN: 47 y/o man with h/o back pain who presented for laminectomy and fusion 1- Lower back pain s/p Laminectomies and fusion . pain has improved . - cont CONSOLE MANAGER at current settings - cont current dose of neurontin - follow neuro exam and EMI drainage - wound care and dressing change per ortho 2- JEREMIE , 2/2 rhabdo and possible hypoperfusion during sx ( BL 1.1 ) - renal function slightly improved - cont IVF with bicarb 3- Rhabdo : - cont IVF - repeat CPK in am 4- Acute blood loss anemia : - s/p 1 unit of RBC yesterday. repeat CBC 5- SCDs , no chemical prophylaxis for now dispo : OC
[2017-11-14 16:13] LABS: BASO % 0.5 % (0-2.0); HEMATOCRIT 21.6 % (35.4-49); HEMOGLOBIN 7.4 GM/dL (11.7-16.9); LYMPH % 13.5 % (8-40); MCH 29.3 pg (25.7-33.7); MCHC 34.3 g/dl (32.0-35.9); MEAN CELL VOLUME 85.3 fl (80-96); MONO % 9.4 % (3.8-10.2); NEUT % 74.6 % (42.8-82.8); PLATELET COUNT 98 K/MM3 (134-434); RBC 2.54 M/mm3 (4.00-5.60); WHITE BLOOD COUNT 9.5 K/mm3 (4.0-10.0)
[2017-11-14] MEDS ORDERED: PT OWN MED DRAWER 7, Y5N ONE (16:45)
[2017-11-14] MEDS ORDERED: CYCLOBENZAPRINE HCL 10 MG TABLET (FP) PO ONE (21:30)
[2017-11-15] MEDS: ACETAMINOPHEN 325 MG TABLET (FP) PO PRN ×2 (03:17→13:00)
--- NOTE | 2017-11-15 03:54 | HOSP ---
Subjective - Review of Symptoms Events since last encounter: banquet server on call resident paged due to Fever Chart Reviewed. Patient is a 47yo M who is POD4 from a spinal laminectomy and fusion. Hospital course has been complicated by JEREMIE and rhabdomyolysis which is currently resolving. RN was checking routine vitals, found patient to be febrile to 101.3. Patient seen and examined. Patient is pleasant, cooperative, endorses no diaphoresis or chills. He only states he has an "uncomfortable" feeling in his L calf. He is otherwise asymptomatic, with no CP, SOB, abd pain, or increase in back pain. Vital Signs Temperature 101.3 F H 11/15/17 02:00 Pulse Rate 116 H 11/15/17 02:00 Respiratory Rate 20 11/15/17 02:00 Blood Pressure 152/84 11/15/17 02:00 O2 Sat by Pulse Oximetry (%) 98 11/14/17 21:00 GEN: AAOx3, NAD, Lying comfortably in bed, not ill appearing HEENT: PERRLa, EOMi, no JVD CV: S1, S2, tachycardic rate, reg rhythm LUNG: CTABL ABD: Soft, NT, ND MSK: Surgical scar covered by xeroform, nontender to palpation, +calf tenderness in L calf w/o erythema or edema. NEURO: CN 2-12 intact, no sensation deficits, no facial droop A/P Fever. POD4. Could be physiologic, but will workup for possible infectious etiology. Ordered BCx, UA, UCx, Lactic acid. Of note, reno catheter needs to be removed for a clean catch sample. Patient agrees to have reno removed, but refuses to have it replaced. He endorsed ambulated in the ICU w/ rolling walker, so I am comfortable with d/cing reno for now. Though lungs are clear, will get CXR in AM to check for atelectasis. Enforced use of incentive spirometer. Tylenol PRN for fever. L Calf tenderness. No edema or erythema, but due to relative immobility postop, will ensure no DVT by ordering duplex. Case d/w Dr Lala Trevino MD - pGY1 Night Pool Table Mechanic Visit type - Emergency Visit Emergency Visit: No - New Patient This patient is new to me today: Yes Date on this admission: 11/16/17 - Critical Care Critical Care patient: No
[2017-11-15 06:07] LABS: HBSAG SCREEN Negative (Negative); HEP B CORE AB, TOT Negative (Negative); SERUM IRON SATURATION 7 % (15-55); TOTAL IRON BINDING CAPACITY 116 ug/dL (250-450); UIBC 108 ug/dL (111-343)
[2017-11-15 07:24] LABS: URINE APPEARANCE CLEAR; URINE BILIRUBIN NEGATIVE (<2.0 mg/dL); URINE BLOOD 1+ (NEGATIVE); URINE COLOR STRAW; URINE GLUCOSE (UA) NEGATIVE (NEGATIVE); URINE KETONE NEGATIVE (NEGATIVE); URINE LEUK ESTERASE TRACE (NEGATIVE); URINE NITRITE NEGATIVE (NEGATIVE); URINE PROTEIN NEGATIVE (NEGATIVE); URINE UROBILINOGEN NEGATIVE mg/dL (0.2-1.0)
[2017-11-15 07:40] LABS: EPI CELLS RARE /HPF (FEW); URINE BACTERIA RARE /hpf (NONE SEEN)
[2017-11-15 08:05] LABS: HEMATOCRIT 19.8 % (35.4-49); MCH 29.7 pg (25.7-33.7); MCHC 34.4 g/dl (32.0-35.9); MEAN CELL VOLUME 86.5 fl (80-96); MEAN PLT VOLUME 9.2 fl (7.5-11.1); PLATELET COUNT 122 K/MM3 (134-434); RBC 2.29 M/mm3 (4.00-5.60); RDW 14.2 % (11.9-15.9); WHITE BLOOD COUNT 8.4 K/mm3 (4.0-10.0)
[2017-11-15 08:18] LABS: CHLORIDE 104 mmol/L (98-107); SODIUM 138 mmol/L (136-145)
[2017-11-15 08:36] LABS: HEMOGLOBIN 6.8 GM/dL (11.7-16.9)
[2017-11-15 08:44] LABS: ALBUMIN 2.1 g/dl (3.4-5.0); ALK PHOS 38 U/L (45-117); ANION GAP 5 (8-16); BILIRUBIN,TOTAL 0.4 mg/dL (0.2-1.0); BLOOD UREA NITROGEN 30 mg/dL (7-18); CO2 29 mmol/L (21-32); CREATININE 2.9 mg/dL (0.7-1.3); GLUCOSE,RANDOM 88 mg/dL (74-106); SGOT/AST 54 U/L (15-37); SGPT/ALT 17 U/L (12-78); TOT PROT 4.5 g/dl (6.4-8.2)
[2017-11-15] MEDS: CYCLOBENZAPRINE HCL 10 MG TABLET (FP) PO SCH (09:30)
[2017-11-15] MEDS: GABAPENTIN 100 MG CAPSULE (FP) PO SCH ×4 (09:30→22:17)
[2017-11-15] MEDS: CALCIUM 500MG/VIT-D 200 UNITS COMBO TABLET (FP) PO SCH (09:31)
[2017-11-15] MEDS ORDERED: PT OWN MED DRAWER 7, Y5N ONE (10:55)
--- NOTE | 2017-11-15 11:49 | PN ---
Progress Note (short form) - Note Progress Note: Anesthesia Post op/pain Pt seen and exAMINED S:alert and awake c/o dizziness O: Vital Signs Temperature 99.2 F 11/15/17 06:47 Pulse Rate 105 H 11/15/17 06:47 Respiratory Rate 20 11/15/17 06:47 Blood Pressure 152/94 11/15/17 06:47 O2 Sat by Pulse Oximetry (%) 98 11/14/17 21:00 CBC, BMP 11/15/17 06:30 11/15/17 06:30 A/P: Vital Signs Temperature 99.2 F 11/15/17 06:47 Pulse Rate 105 H 11/15/17 06:47 Respiratory Rate 20 11/15/17 06:47 Blood Pressure 152/94 11/15/17 06:47 O2 Sat by Pulse Oximetry (%) 98 11/14/17 21:00 Current Active Problems JEREMIE (acute kidney injury) (Acute) Hyperkalemia (Acute) Rhabdomyolysis (Acute) s/p Decompression L3s1 Plif Uses TECHNICAL COMMUNICATOR Continue TECHNICAL COMMUNICATOR Anemina needs Blood transfusion Anesthesia barreto no apparent complications and pain well controlled Geovanni Carrillo MD
--- NOTE | 2017-11-15 12:59 | PN ---
Teaching Attending Note Name of Resident: Arnel Nettles ATTENDING PHYSICIAN STATEMENT I saw and evaluated the patient. I reviewed the resident's note and discussed the case with the resident. I agree with the resident's findings and plan as documented. SUBJECTIVE: has fever , has RUQ abd pain, has painin lower back. no cough . painin L calf OBJECTIVE: NAD Cv : RRR lungs : CTAB Abd: soft, ND, NL BS . TTP in RUQ, neg honeycutt's MS : wound dressing over the T, ad L spine . with EMI drainage with sanguinous fluid in neuro of LE : LLE: strength 4/5 in hip flexion , 5/5 knee flexion and extension and ankle dorsiflexion and plantarflexion RLE: 4/5 hip flexion, 5/5 knee felxion and extension and ankle dorsiflexion and plantarflexion sensation to light touch NL in b/l LE reflexes 1+ knee jerk b/l tenderness L calf ASSESSMENT AND PLAN: 47 y/o man with h/o back pain who presented for laminectomy and fusion 1- Fever > 24 hr after sx: need to investigate . r/o infection , r/o DVT as has pain and tenderness in L calf after sx - US of LE - cxry and UA. - RUQ US given pain and tenderness in RUQ - wound to be checked per sx 2- Lower back pain s/p Laminectomies and fusion . - cont HEAD CHARGER at current settings - cont current dose of neurontin - follow neuro exam and EMI drainage 2- JEREMIE , 2/2 rhabdo and possible hypoperfusion during sx ( BL 1.1 ) - renal function cont to improve - cont IVF 3- Rhabdo : - cont IVF 4- Acute blood loss anemia : - transfuse again today 5- SCDs, no chemical prophylaxis for now. Dispo: HLOC
--- NOTE | 2017-11-15 14:03 | PN ---
Physical Exam: SUBJECTIVE: Patient seen and examined Patient spiked fever overnight to 101.3. Cultures were taken. Patient also complained of cramping and pain in right calf. Patient denies any cough, dysuria , chills. Oren benavides last night OBJECTIVE: Vital Signs Period Temp Pulse Resp BP Sys/Yo Pulse Ox Last 24 Hr 98.4 F-101.3 F 94-116 16-20 132-160/65-105 98 GENERAL: The patient is awake, alert, and fully oriented, in no acute distress. HEAD: Normal with no signs of trauma. EYES: Extraocular movements intact, sclera anicteric, conjunctiva clear. No ptosis. ENT: Oropharynx clear without exudates, moist mucous membranes. NECK: Trachea midline, full range of motion, supple. LUNGS: Breath sounds equal, clear to auscultation bilaterally, no wheezes, no crackles, no accessory muscle use. HEART: Tachycardic, Regular rhythm, S1, S2 without murmur, rub or gallop. ABDOMEN: Soft, nontender, nondistended, hypoactive bowel sounds, no guarding, no rebound, no hepatosplenomegaly, no masses. EXTREMITIES: 2+ pulses, warm, well-perfused, no edema. NEUROLOGICAL: Cranial nerves II through XII grossly intact. normal speech. 5/5 strength in LLE proximally and distally, 4/5 strength in RLE proximally and 5/5 distally. sensation intact b/l, 2+ reflexes PSYCH: Normal mood, normal affect. SKIN: Warm, dry, normal turgor, no rashes or lesions noted MSK: EMI DRAIN IN PLACE Laboratory Results - last 24 hr 11/13/17 11/13/17 11/14/17 17:30 17:30 15:30 WBC 9.5 RBC 2.54 L Hgb 7.4 L Hct 21.6 L MCV 85.3 MCH 29.3 MCHC 34.3 RDW 14.0 Plt Count 98 L MPV 10.0 Neutrophils % 74.6 Lymphocytes % 13.5 D Monocytes % 9.4 Eosinophils % 2.0 Basophils % 0.5 Sodium Potassium Chloride Carbon Dioxide Anion Gap BUN Creatinine Creat Clearance w eGFR Random Glucose Lactic Acid Calcium Iron 8 L TIBC 116 L Iron Saturation 7 L Total Bilirubin AST ALT Alkaline Phosphatase Creatine Kinase Creatine Kinase Index CK-MB (CK-2) Total Protein Albumin Urine Color Urine Appearance Urine pH Ur Specific Couch Urine Protein Urine Glucose (UA) Urine Ketones Urine Blood Urine Nitrite Urine Bilirubin Urine Urobilinogen Ur Leukocyte Esterase Urine WBC (Auto) Urine RBC (Auto) Ur Epithelial Cells Urine Bacteria Hepatitis A Ab Total Negative Hep Bs Antigen Negative Hep Bs Antibody Non reactive Hep B Core Total Ab Negative Blood Type Antibody Screen Crossmatch 11/15/17 11/15/17 11/15/17 04:00 06:30 06:30 WBC 8.4 RBC 2.29 L Hgb 6.8 L* Hct 19.8 L MCV 86.5 MCH 29.7 MCHC 34.4 RDW 14.2 Plt Count 122 L D MPV 9.2 Neutrophils % Lymphocytes % Monocytes % Eosinophils % Basophils % Sodium 138 Potassium 4.0 Chloride 104 Carbon Dioxide 29 Anion Gap 5 L BUN 30 H Creatinine 2.9 H Creat Clearance w eGFR 23.54 Random Glucose 88 Lactic Acid 1.0 Calcium 7.0 L Iron TIBC Iron Saturation Total Bilirubin 0.4 AST 54 H ALT 17 Alkaline Phosphatase 38 L Creatine Kinase 1203 H Creatine Kinase Index 1.6 CK-MB (CK-2) 1.948 Total Protein 4.5 L Albumin 2.1 L Urine Color Urine Appearance Urine pH Ur Specific Couch Urine Protein Urine Glucose (UA) Urine Ketones Urine Blood Urine Nitrite Urine Bilirubin Urine Urobilinogen Ur Leukocyte Esterase Urine WBC (Auto) Urine RBC (Auto) Ur Epithelial Cells Urine Bacteria Hepatitis A Ab Total Hep Bs Antigen Hep Bs Antibody Hep B Core Total Ab Blood Type Antibody Screen Crossmatch 11/15/17 11/15/17 11/15/17 06:30 06:30 09:50 WBC RBC Hgb Hct MCV MCH MCHC RDW Plt Count MPV Neutrophils % Lymphocytes % Monocytes % Eosinophils % Basophils % Sodium Potassium Chloride Carbon Dioxide Anion Gap BUN Creatinine Creat Clearance w eGFR Random Glucose Lactic Acid Calcium Iron TIBC Iron Saturation Total Bilirubin AST ALT Alkaline Phosphatase Creatine Kinase Creatine Kinase Index CK-MB (CK-2) Cancelled Total Protein Albumin Urine Color Straw Urine Appearance Clear Urine pH 6.0 Ur Specific Couch 1.004 Urine Protein Negative Urine Glucose (UA) Negative Urine Ketones Negative Urine Blood 1+ H Urine Nitrite Negative Urine Bilirubin Negative Urine Urobilinogen Negative Ur Leukocyte Esterase Trace Urine WBC (Auto) 5 Urine RBC (Auto) <1 Ur Epithelial Cells Rare Urine Bacteria Rare Hepatitis A Ab Total Hep Bs Antigen Hep Bs Antibody Hep B Core Total Ab Blood Type O NEGATIVE Antibody Screen Negative Crossmatch See Detail Active Medications Generic Name Dose Route Start Last Admin Trade Name Freq PRN Reason Stop Dose Admin Acetaminophen 650 mg 11/15/17 01:58 11/15/17 13:00 Tylenol - PO 650 mg Q6H PRN Administration FEVER Calcium Carbonate/Cholecalciferol 2 tab 11/13/17 12:30 11/15/17 09:31 Os-Georges 500+D - PO 2 tab DAILY LIBBY Administration Cyclobenzaprine HCl 5 mg 11/14/17 11:30 11/15/17 09:30 Flexeril - PO 5 mg DAILY LIBBY Administration Fentanyl 50 mcg 11/11/17 19:50 Sublimaze Injection - IVPUSH [id number] PRN PAIN-PACU ORDER X 4 DOSES ONLY Gabapentin 100 mg 11/13/17 12:13 11/15/17 09:30 Neurontin - PO 100 mg BID LIBBY Administration Gabapentin 100 mg 11/13/17 22:00 11/14/17 21:12 Neurontin - PO 100 mg HS LIBBY Administration Hydromorphone HCl 10 mg 11/13/17 10:25 11/14/17 10:35 Dilaudid Clinical Technologist - MANAGER TREASURY 11/18/17 21:53 Not Given MANAGER TREASURY LIBBY Protocol Sodium Bicarbonate 50 meq/ 1,050 mls @ 175 mls/hr 11/13/17 18:13 11/14/17 19: 09 Sodium Chloride IV 175 mls/hr ASDIR ILBBY Administration Ondansetron HCl 4 mg 11/11/17 19:50 Zofran Injection IVPUSH Q6H PRN NAUSEA AND/OR VOMITING Promethazine HCl 12.5 mg 11/11/17 19:50 Phenergan Injection - IVPB Q6H PRN NAUSEA-FOR RESCUE AFTER 15 MIN ASSESSMENT/PLAN: 47 year old M with no pmh presented post op L2-S1 laminectomies, L3-4, L4-5, L5- S1 PLIF, T8-S1 PISF, and Multi-layered, complex wound closure (~40cm). #New post op fever -F/u cultures, cxr, and urinalysis -b/l dvt studies pending -Patient has ruq pain so will order abdomen u/s to evaluate #Post op s/p L2-S1 laminectomies, L3-4, L4-5, L5-S1 PLIF, T8-S1 PISF, and Multi- layered, complex wound closure -Zofran/Promethazine for nausea -Pain control with Gabapentin and dilaudid pens and pencils dipper -Incentive spirometer/Chest PT -PT/OT, OOB, weight bearing as tolerated -reno dc -Passing flatus #JEREMIE 2/2 to ?rhabdo vs indomethacin use, baseline is 1.1 -CPK improving -1/2 NS + sodium bicarb @ 175 cc/hr -Monitor cr, urine output -Renal/bladder u/s--no abnormalities -Renal consult, Dr. Ward -immunology/serology pending #Acute blood loss anemia 2/2 to blood loss likely from surgery -1 prbc given today -will monitor cbc #FEN/GI -1/2 NS + sodium bicarb @ 175 cc/hr -wnl -soft diet #PPx -scds -teds Visit type - Emergency Visit Emergency Visit: Yes ED Registration Date: 11/11/17 Care time: The patient presented to the Emergency Department on the above date and was hospitalized for further evaluation of their emergent condition. - New Patient This patient is new to me today: No - Critical Care Critical Care patient: No
--- NOTE | 2017-11-15 16:49 | PN ---
Progress Note, Physician History of Present Illness: Pt seen and examined at bedside. He is awake and alert. He denies shortness of breath. - Current Medication List Current Medications: Active Medications Acetaminophen (Tylenol -) 650 mg PO Q6H PRN PRN Reason: FEVER Last Admin: 11/15/17 13:00 Dose: 650 mg Calcium Carbonate/Cholecalciferol (Os-Georges 500+D -) 2 tab PO DAILY [facility] Last Admin: 11/15/17 09:31 Dose: 2 tab Cyclobenzaprine HCl (Flexeril -) 5 mg PO DAILY [facility] Last Admin: 11/15/17 09:30 Dose: 5 mg Fentanyl (Sublimaze Injection -) 50 mcg IVPUSH [id number] PRN PRN Reason: PAIN-PACU ORDER X 4 DOSES ONLY Gabapentin (Neurontin -) 100 mg PO BID [facility] Last Admin: 11/15/17 09:30 Dose: 100 mg Gabapentin (Neurontin -) 100 mg PO HS [facility] Last Admin: 11/14/17 21:12 Dose: 100 mg Hydromorphone HCl (Dilaudid Lead Shop Operator -) 10 mg PRINTED CIRCUIT LAYOUT TAPER PRINTED CIRCUIT LAYOUT TAPER [facility] PRN Reason: Protocol Stop: 11/18/17 21:53 Last Admin: 11/14/17 10:35 Dose: Not Given Sodium Bicarbonate 50 meq/ (Sodium Chloride) 1,050 mls @ 175 mls/hr IV ASDIR [facility] Last Admin: 11/14/17 19:09 Dose: 175 mls/hr Ondansetron HCl (Zofran Injection) 4 mg IVPUSH Q6H PRN PRN Reason: NAUSEA AND/OR VOMITING Promethazine HCl (Phenergan Injection -) 12.5 mg IVPB Q6H PRN PRN Reason: NAUSEA-FOR RESCUE AFTER 15 MIN - Objective Vital Signs: Vital Signs Temperature 99.8 F H 11/15/17 14:36 Pulse Rate 102 H 11/15/17 14:36 Respiratory Rate 18 11/15/17 14:36 Blood Pressure 150/94 11/15/17 14:36 O2 Sat by Pulse Oximetry (%) 98 11/15/17 10:00 Constitutional: Yes: Calm Eyes: Yes: Conjunctiva Clear HENT: Yes: Atraumatic Neck: Yes: Supple Cardiovascular: Yes: S1, S2 Respiratory: Yes: CTA Bilaterally Gastrointestinal: Yes: Normal Bowel Sounds, Soft Genitourinary: Yes: WNL Musculoskeletal: Yes: WNL Edema: No Neurological: Yes: Oriented Psychiatric: Yes: Oriented Labs: CBC, BMP 11/15/17 06:30 11/15/17 06:30 Problem List - Problems (1) JEREMIE (acute kidney injury) Code(s): N17.9 - ACUTE KIDNEY FAILURE, UNSPECIFIED (2) Hyperkalemia Code(s): E87.5 - HYPERKALEMIA (3) Rhabdomyolysis Code(s): M62.82 - RHABDOMYOLYSIS Assessment/Plan Current Medications Generic Name Dose Route Start Last Admin Trade Name Freq PRN Reason Stop Dose Admin Acetaminophen 650 mg 11/15/17 01:58 11/15/17 13:00 Tylenol - PO 650 mg Q6H PRN Administration FEVER Calcium Carbonate/Cholecalciferol 2 tab 11/13/17 12:30 11/15/17 09:31 Os-Georges 500+D - PO 2 tab DAILY LIBBY Administration Cyclobenzaprine HCl 5 mg 11/14/17 11:30 11/15/17 09:30 Flexeril - PO 5 mg DAILY LIBBY Administration Fentanyl 50 mcg 11/11/17 19:50 Sublimaze Injection - IVPUSH [id number] PRN PAIN-PACU ORDER X 4 DOSES ONLY Gabapentin 100 mg 11/13/17 12:13 11/15/17 09:30 Neurontin - PO 100 mg BID LIBBY Administration Gabapentin 100 mg 11/13/17 22:00 11/14/17 21:12 Neurontin - PO 100 mg HS LIBBY Administration Hydromorphone HCl 10 mg 11/13/17 10:25 11/14/17 10:35 Dilaudid Lead Shop Operator - PRINTED CIRCUIT LAYOUT TAPER 11/18/17 21:53 Not Given PRINTED CIRCUIT LAYOUT TAPER LIBBY Protocol Sodium Bicarbonate 50 meq/ 1,050 mls @ 175 mls/hr 11/13/17 18:13 11/14/17 19: 09 Sodium Chloride IV 175 mls/hr ASDIR LIBBY Administration Ondansetron HCl 4 mg 11/11/17 19:50 Zofran Injection IVPUSH Q6H PRN NAUSEA AND/OR VOMITING Promethazine HCl 12.5 mg 11/11/17 19:50 Phenergan Injection - IVPB Q6H PRN NAUSEA-FOR RESCUE AFTER 15 MIN Laboratory Tests 11/13/17 17:30 LAURENCE M-Yassine Pending ZA Screen Pending c-ANCA Pending Proteinase 3 (PR3) Pending p-ANCA Pending Atypical p-ANCA Pending Myeloperoxidase Ab Pending Double Strand DNA Ab <1 Glomerular Base Memb Ab Pending Hep Bs Antigen Pending Hep Bs Antibody Pending Hep B Core Total Ab Pending HCV Quantitation Pending Impression 1. JEREMIE 2. hyperkalemia 3. hx HTN 4. rhabdo 5. s/p laminectomy 6. anemia Plan - renal function is improving - CPK is improving - renal workup is in progress - repeat labs in am - can start to decrease rate of fluids - pt will need anemia workup - follow spep - check stool for occult blood - outpt labs that were done on 10/31 unishear operator 1.1 k 5.5 bun 11 - monitor volume status - will follow Dr Ward
[2017-11-15] MEDS: SODIUM BICARBONATE 8.4% - 50 MEQ in SODIUM CHLORIDE 0.45% 1,000 ML IV SCH (17:20)
[2017-11-15 18:27] LABS: HEMATOCRIT 22.1 % (35.4-49); HEMOGLOBIN 7.7 GM/dL (11.7-16.9); MCHC 34.8 g/dl (32.0-35.9); MEAN CELL VOLUME 86.2 fl (80-96); MEAN PLT VOLUME 8.6 fl (7.5-11.1); PLATELET COUNT 156 K/MM3 (134-434); RBC 2.57 M/mm3 (4.00-5.60); RDW 14.4 % (11.9-15.9); WHITE BLOOD COUNT 8.2 K/mm3 (4.0-10.0)
[2017-11-15] MEDS: HYDROmorphone *PCA* 10MG/50ML DISP.SYRIN PCA SCH ×2 (21:03→22:13)
[2017-11-15] MEDS: CEFAZOLIN 2 GM/D5W 2 GM/50 ML ML IVPB SCH (22:07)
[2017-11-15] MEDS: GABAPENTIN 300 MG CAPSULE (FP) PO SCH ×2 (22:13→22:15)
[2017-11-15] MEDS: GABAPENTIN 400 MG CAPSULE (FP) PO SCH (22:16)
[2017-11-16] MEDS: SODIUM BICARBONATE 8.4% - 50 MEQ in SODIUM CHLORIDE 0.45% 1,000 ML IV SCH ×4 (02:06→21:02)
[2017-11-16] MEDS: HYDROmorphone *PCA* 10MG/50ML DISP.SYRIN PCA SCH (02:07)
[2017-11-16 02:09] LABS: URINE APPEARANCE CLEAR; URINE BILIRUBIN NEGATIVE (<2.0 mg/dL); URINE BLOOD NEGATIVE (NEGATIVE); URINE COLOR STRAW; URINE GLUCOSE (UA) NEGATIVE (NEGATIVE); URINE KETONE NEGATIVE (NEGATIVE); URINE LEUK ESTERASE NEGATIVE (NEGATIVE); URINE NITRITE NEGATIVE (NEGATIVE); URINE PROTEIN NEGATIVE (NEGATIVE); URINE UROBILINOGEN NEGATIVE mg/dL (0.2-1.0)
[2017-11-16] MEDS: GABAPENTIN 100 MG CAPSULE (FP) PO SCH ×3 (05:43→21:01)
[2017-11-16 08:10] LABS: BASO % 0.6 % (0-2.0); EOS % 5.5 % (0-4.5); HEMATOCRIT 21.5 % (35.4-49); HEMOGLOBIN 7.5 GM/dL (11.7-16.9); LYMPH % 15.6 % (8-40); MCH 30.2 pg (25.7-33.7); MCHC 35.1 g/dl (32.0-35.9); MEAN CELL VOLUME 86.1 fl (80-96); MEAN PLT VOLUME 8.2 fl (7.5-11.1); MONO % 12.1 % (3.8-10.2); NEUT % 66.2 % (42.8-82.8); PLATELET COUNT 172 K/MM3 (134-434); RDW 13.5 % (11.9-15.9); WHITE BLOOD COUNT 8.1 K/mm3 (4.0-10.0)
[2017-11-16 08:47] LABS: ALBUMIN 2.3 g/dl (3.4-5.0); ALK PHOS 38 U/L (45-117); ANION GAP 8 (8-16); BILIRUBIN,TOTAL 0.5 mg/dL (0.2-1.0); BLOOD UREA NITROGEN 25 mg/dL (7-18); CALCIUM 7.7 mg/dL (8.5-10.1); CHLORIDE 105 mmol/L (98-107); CO2 27 mmol/L (21-32); CREATININE 2.6 mg/dL (0.7-1.3); GLUCOSE,RANDOM 87 mg/dL (74-106); MAGNESIUM 2.2 mg/dL (1.8-2.4); PHOSPHOROUS 3.3 mg/dL (2.5-4.9); SGOT/AST 40 U/L (15-37); SGPT/ALT 15 U/L (12-78); SODIUM 140 mmol/L (136-145); TOT PROT 4.6 g/dl (6.4-8.2)
[2017-11-16] MEDS ORDERED: amLODIPine BESYLATE 5 MG TABLET (FP) PO ONE (09:30)
--- NOTE | 2017-11-16 09:31 | PN ---
Physical Exam: SUBJECTIVE: Patient seen and examined No acute events overnight. Continues to have cramping and pain in his abdomen. Pain in his back continues to improve. OBJECTIVE: Vital Signs Period Temp Pulse Resp BP Sys/Yo Pulse Ox Last 24 Hr 98.7 F-99.8 F 100-104 18-20 150-159/89-102 97-98 GENERAL: The patient is awake, alert, and fully oriented, in no acute distress. HEAD: Normal with no signs of trauma. EYES: Extraocular movements intact, sclera anicteric, conjunctiva clear. No ptosis. ENT: Oropharynx clear without exudates, moist mucous membranes. NECK: Trachea midline, full range of motion, supple. LUNGS: Breath sounds equal, clear to auscultation bilaterally, no wheezes, no crackles, no accessory muscle use. HEART: Tachycardic, Regular rhythm, S1, S2 without murmur, rub or gallop. ABDOMEN: Soft, right sided tenderness, nondistended, hypoactive bowel sounds, no guarding, no rebound, no hepatosplenomegaly, no masses. EXTREMITIES: 2+ pulses, warm, well-perfused, no edema. NEUROLOGICAL: Cranial nerves II through XII grossly intact. normal speech. 5/5 strength in LLE proximally and distally, 4/5 strength in RLE proximally and 5/5 distally. sensation intact b/l, 2+ reflexes PSYCH: Normal mood, normal affect. SKIN: Warm, dry, normal turgor, no rashes or lesions noted MSK: EMI DRAIN IN PLACE Laboratory Results - last 24 hr 11/13/17 11/13/17 11/15/17 06:00 17:30 06:30 WBC RBC Hgb Hct MCV MCH MCHC RDW Plt Count MPV Neutrophils % Lymphocytes % Monocytes % Eosinophils % Basophils % Sodium 138 Potassium 4.0 Chloride 104 Carbon Dioxide 29 Anion Gap 5 L BUN 30 H Creatinine 2.9 H Creat Clearance w eGFR 23.54 Random Glucose 88 Hemoglobin A1c % 5.4 Calcium 7.0 L Phosphorus Magnesium Total Bilirubin 0.4 AST 54 H ALT 17 Alkaline Phosphatase 38 L Creatine Kinase 1203 H Creatine Kinase Index 1.6 CK-MB (CK-2) 1.948 Troponin I 0.94 H* Total Protein 4.5 L Total Protein (PEP) 4.0 L Albumin 2.1 L Albumin (PEP) 2.2 L Globulin 1.8 L Albumin/Globulin Ratio 1.2 Beta Globulins 0.5 L Urine Color Urine Appearance Urine pH Ur Specific [place] Urine Protein Urine Glucose (UA) Urine Ketones Urine Blood Urine Nitrite Urine Bilirubin Urine Urobilinogen Ur Leukocyte Esterase LAURENCE M-Yassine Not observed ZA Screen Negative Double Strand DNA Ab <1 Blood Type Antibody Screen Crossmatch 11/15/17 11/15/17 11/15/17 09:50 17:56 17:56 WBC 8.2 RBC 2.57 L Hgb 7.7 L D Hct 22.1 L MCV 86.2 MCH 30.0 MCHC 34.8 RDW 14.4 Plt Count 156 D MPV 8.6 Neutrophils % Lymphocytes % Monocytes % Eosinophils % Basophils % Sodium Potassium Chloride Carbon Dioxide Anion Gap BUN Creatinine Creat Clearance w eGFR Random Glucose Hemoglobin A1c % Calcium Phosphorus Magnesium Total Bilirubin AST ALT Alkaline Phosphatase Creatine Kinase 1004 H Creatine Kinase Index 0.1 CK-MB (CK-2) 1.650 Troponin I 0.65 H* D Total Protein Total Protein (PEP) Albumin Albumin (PEP) Globulin Albumin/Globulin Ratio Beta Globulins Urine Color Urine Appearance Urine pH Ur Specific [place] Urine Protein Urine Glucose (UA) Urine Ketones Urine Blood Urine Nitrite Urine Bilirubin Urine Urobilinogen Ur Leukocyte Esterase LAURENCE M-Yassine ZA Screen Double Strand DNA Ab Blood Type O NEGATIVE Antibody Screen Negative Crossmatch See Detail 11/16/17 11/16/17 11/16/17 01:50 01:50 06:50 WBC 8.1 RBC 2.50 L Hgb 7.5 L Hct 21.5 L MCV 86.1 MCH 30.2 MCHC 35.1 RDW 13.5 Plt Count 172 MPV 8.2 Neutrophils % 66.2 Lymphocytes % 15.6 Monocytes % 12.1 H Eosinophils % 5.5 H D Basophils % 0.6 Sodium Potassium Chloride Carbon Dioxide Anion Gap BUN Creatinine Creat Clearance w eGFR Random Glucose Hemoglobin A1c % Calcium Phosphorus Magnesium Total Bilirubin AST ALT Alkaline Phosphatase Creatine Kinase 773 H Creatine Kinase Index 0.1 CK-MB (CK-2) 1.410 Troponin I 0.65 H* Total Protein Total Protein (PEP) Albumin Albumin (PEP) Globulin Albumin/Globulin Ratio Beta Globulins Urine Color Straw Urine Appearance Clear Urine pH 7.0 Ur Specific [place] 1.004 Urine Protein Negative Urine Glucose (UA) Negative Urine Ketones Negative Urine Blood Negative Urine Nitrite Negative Urine Bilirubin Negative Urine Urobilinogen Negative Ur Leukocyte Esterase Negative LAURENCE M-Yassine ZA Screen Double Strand DNA Ab Blood Type Antibody Screen Crossmatch 11/16/17 11/16/17 06:50 06:50 WBC RBC Hgb Hct MCV MCH MCHC RDW Plt Count MPV Neutrophils % Lymphocytes % Monocytes % Eosinophils % Basophils % Sodium 140 Potassium 4.0 Chloride 105 Carbon Dioxide 27 Anion Gap 8 BUN 25 H Creatinine 2.6 H Creat Clearance w eGFR 26.71 Random Glucose 87 Hemoglobin A1c % Calcium 7.7 L Phosphorus 3.3 Magnesium 2.2 Total Bilirubin 0.5 D AST 40 H D ALT 15 Alkaline Phosphatase 38 L Creatine Kinase 661 H Creatine Kinase Index 0.3 CK-MB (CK-2) 2.099 Troponin I Total Protein 4.6 L Total Protein (PEP) Albumin 2.3 L Albumin (PEP) Globulin Albumin/Globulin Ratio Beta Globulins Urine Color Urine Appearance Urine pH Ur Specific [place] Urine Protein Urine Glucose (UA) Urine Ketones Urine Blood Urine Nitrite Urine Bilirubin Urine Urobilinogen Ur Leukocyte Esterase LAURENCE M-Yassine ZA Screen Double Strand DNA Ab Blood Type Antibody Screen Crossmatch Active Medications Generic Name Dose Route Start Last Admin Trade Name Freq PRN Reason Stop Dose Admin Acetaminophen 650 mg 11/15/17 01:58 11/15/17 13:00 Tylenol - PO 650 mg Q6H PRN Administration FEVER Amlodipine Besylate 5 mg 11/16/17 09:30 Norvasc - PO 11/16/17 09:31 ONCE ONE Calcium Carbonate/Cholecalciferol 2 tab 11/13/17 12:30 11/15/17 09:31 Os-Georges 500+D - PO 2 tab DAILY [facility] Administration Cyclobenzaprine HCl 5 mg 11/14/17 11:30 11/15/17 09:30 Flexeril - PO 5 mg DAILY [facility] Administration Fentanyl 50 mcg 11/11/17 19:50 Sublimaze Injection - IVPUSH [id number] PRN PAIN-PACU ORDER X 4 DOSES ONLY Gabapentin 100 mg 11/15/17 22:15 11/16/17 05:43 Neurontin - PO 100 mg TID [facility] Administration Hydromorphone HCl 10 mg 11/13/17 10:25 11/16/17 02:07 Dilaudid Press Tender - MENTAL HEALTH ORDERLY 11/18/17 21:53 10 mg MENTAL HEALTH ORDERLY [facility] Administration Protocol Sodium Bicarbonate 50 meq/ 1,050 mls @ 150 mls/hr 11/15/17 16:49 11/16/17 02: 06 Sodium Chloride IV 150 mls/hr ASDIR [facility] Administration Ondansetron HCl 4 mg 11/11/17 19:50 Zofran Injection IVPUSH Q6H PRN NAUSEA AND/OR VOMITING Promethazine HCl 12.5 mg 11/11/17 19:50 Phenergan Injection - IVPB Q6H PRN NAUSEA-FOR RESCUE AFTER 15 MIN ASSESSMENT/PLAN: 47 year old M with no pmh presented post op L2-S1 laminectomies, L3-4, L4-5, L5- S1 PLIF, T8-S1 PISF, and Multi-layered, complex wound closure (~40cm). #New post op fever -Cultures, UA, Cxr negative to date. -b/l dvt studies negative -Abdomen u/s --negative -Will ask surgery to come evaluate the wound #Abdominal pain -Miralax and colace tid -RUQ u/s negative for acute pathology. 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 Ward -immunology/serology pending #HTN -Norvasc 5 mg daily -Has had rxn to some antihypertensive medication in past. Will monitor.--unsure name of medication. #Acute blood loss anemia 2/2 to blood loss likely from surgery -1 prbc given yesterday -will monitor cbc #FEN/GI -1/2 NS + sodium bicarb @ 175 cc/hr -wnl -soft diet #PPx -scds -teds Visit type - Emergency Visit Emergency Visit: Yes ED Registration Date: 11/11/17 Care time: The patient presented to the Emergency Department on the above date and was hospitalized for further evaluation of their emergent condition. - New Patient This patient is new to me today: No - Critical Care Critical Care patient: No
[2017-11-16] MEDS: CALCIUM 500MG/VIT-D 200 UNITS COMBO TABLET (FP) PO SCH (09:34)
[2017-11-16] MEDS: CYCLOBENZAPRINE HCL 10 MG TABLET (FP) PO SCH (09:34)
--- NOTE | 2017-11-16 09:47 | PN ---
Teaching Attending Note Name of Resident: Arnel Nettles ATTENDING PHYSICIAN STATEMENT I saw and evaluated the patient. I reviewed the resident's note and discussed the case with the resident. I agree with the resident's findings and plan as documented. SUBJECTIVE: no fever or chills last night . abd pain in RUQ nad RLQ only when staff palpate. had nausea . painin L calf only when he moves. lower back pain nikkie with movement . No BM since admission OBJECTIVE: NAD Cv: RRR lungs: CTAB Abd: soft, ND, NL BS . TTP in RUQ, and RLQ and suprapubic area . no rebound tenderness or guarding . + Carty's MS : wound dressing over the T, and L spine . with EMI drainage with sanguinous fluid in no tenderness or erythema on LE today ASSESSMENT AND PLAN: 47 y/o man with h/o back pain who presented for laminectomy and fusion 1- Fever: resolved . still unclear etiology. - US of LE pending to r/o DVT - cxry and UA with no signs of infection . - RUQ US given pain and tenderness in RUQ. results are pending . 2- Lower back pain s/p Laminectomies and fusion . 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 - SPEP with no M spike . - OB pending 5- abd pain: r/o cholecystitis or biliary colic. could be constipation. no UTI on UA . bowel regiemn f/u US or RUQ. 6- SCDs, no chemical prophylaxis for now. Dispo: HLOC
[2017-11-16] MEDS: POLYETHYLENE GLYCOL 3350 119 GM BTL PO SCH ×2 (11:57→21:01)
--- NOTE | 2017-11-16 13:18 | PN ---
Progress Note (short form) - Note Progress Note: POD #5. VSS. Pt. doing well, resting comfortably in bed. No complaints. Good pain control. 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
[2017-11-16] MEDS: DOCUSATE SODIUM 100 MG CAPSULE (FP) PO SCH ×2 (13:45→21:01)
--- NOTE | 2017-11-16 15:11 | PN ---
Progress Note, Physician History of Present Illness: Pt seen and examined at bedside. He is awake and alert. He denies shortness of breath. - Current Medication List Current Medications: Active Medications Acetaminophen (Tylenol -) 650 mg PO Q6H PRN PRN Reason: FEVER Last Admin: 11/15/17 13:00 Dose: 650 mg Calcium Carbonate/Cholecalciferol (Os-Georges 500+D -) 2 tab PO DAILY [facility] Last Admin: 11/16/17 09:34 Dose: 2 tab Cyclobenzaprine HCl (Flexeril -) 5 mg PO DAILY [facility] Last Admin: 11/16/17 09:34 Dose: 5 mg Docusate Sodium (Colace -) 100 mg PO TID [facility] Last Admin: 11/16/17 13:45 Dose: 100 mg Gabapentin (Neurontin -) 100 mg PO TID [facility] Last Admin: 11/16/17 13:45 Dose: 100 mg Sodium Bicarbonate 50 meq/ (Sodium Chloride) 1,050 mls @ 125 mls/hr IV Q8H [facility] Last Admin: 11/16/17 10:24 Dose: 125 mls/hr Ondansetron HCl (Zofran Injection) 4 mg IVPUSH Q6H PRN PRN Reason: NAUSEA AND/OR VOMITING Polyethylene Glycol (Miralax (For Daily Use) -) 17 gm PO BID [facility] Last Admin: 11/16/17 11:57 Dose: 17 grams Promethazine HCl (Phenergan Injection -) 12.5 mg IVPB Q6H PRN PRN Reason: NAUSEA-FOR RESCUE AFTER 15 MIN - Objective Vital Signs: Vital Signs Temperature 98.6 F 11/16/17 13:54 Pulse Rate 99 H 11/16/17 14:00 Respiratory Rate 20 11/16/17 14:00 Blood Pressure 142/79 11/16/17 14:00 O2 Sat by Pulse Oximetry (%) 97 11/16/17 09:00 Constitutional: Yes: Calm Eyes: Yes: Conjunctiva Clear HENT: Yes: Atraumatic Neck: Yes: Supple Cardiovascular: Yes: S1, S2 Respiratory: Yes: CTA Bilaterally Gastrointestinal: Yes: Normal Bowel Sounds, Soft Genitourinary: Yes: WNL Musculoskeletal: Yes: Back Pain Edema: No Neurological: Yes: Oriented Psychiatric: Yes: Oriented Labs: CBC, BMP 11/16/17 06:50 11/16/17 06:50 Problem List - Problems (1) JEREMIE (acute kidney injury) Code(s): N17.9 - ACUTE KIDNEY FAILURE, UNSPECIFIED (2) Hyperkalemia Code(s): E87.5 - HYPERKALEMIA (3) Rhabdomyolysis Code(s): M62.82 - RHABDOMYOLYSIS Assessment/Plan Current Medications Generic Name Dose Route Start Last Admin Trade Name Freq PRN Reason Stop Dose Admin Acetaminophen 650 mg 11/15/17 01:58 11/15/17 13:00 Tylenol - PO 650 mg Q6H PRN Administration FEVER Calcium Carbonate/Cholecalciferol 2 tab 11/13/17 12:30 11/16/17 09:34 Os-Georges 500+D - PO 2 tab DAILY [facility] Administration Cyclobenzaprine HCl 5 mg 11/14/17 11:30 11/16/17 09:34 Flexeril - PO 5 mg DAILY [facility] Administration Docusate Sodium 100 mg 11/16/17 14:00 11/16/17 13:45 Colace - PO 100 mg TID [facility] Administration Gabapentin 100 mg 11/15/17 22:15 11/16/17 13:45 Neurontin - PO 100 mg TID [facility] Administration Sodium Bicarbonate 50 meq/ 1,050 mls @ 125 mls/hr 11/16/17 09:44 11/16/17 10: 24 Sodium Chloride IV 125 mls/hr Q8H [facility] Administration Ondansetron HCl 4 mg 11/11/17 19:50 Zofran Injection IVPUSH Q6H PRN NAUSEA AND/OR VOMITING Polyethylene Glycol 17 gm 11/16/17 10:45 11/16/17 11:57 Miralax (For Daily Use) - PO 17 grams BID [facility] Administration Promethazine HCl 12.5 mg 11/11/17 19:50 Phenergan Injection - IVPB Q6H PRN NAUSEA-FOR RESCUE AFTER 15 MIN Impression 1. JEREMIE 2. hyperkalemia 3. hx HTN 4. rhabdo 5. s/p laminectomy 6. anemia Plan - decreased fluids - renal function improving - cpk improving - workup in progress - repeat labs in am - monitor volume status - will follow Dr Ward
[2017-11-16] MEDS ORDERED: ONDANSETRON 4 MG/2 ML VIAL IVPUSH PRN ×2 (15:26→15:27)
[2017-11-16] MEDS ORDERED: PROMETHAZINE HCL 25 MG/1 ML VIAL IVPB PRN (15:26)
[2017-11-16] MEDS ORDERED: DEXAMETHASONE SOD PHOSPHATE 4 MG/1 ML VIAL IVPUSH PRN (15:26)
[2017-11-16] MEDS ORDERED: ONDANSETRON *ODT* 4 MG TABLET SL PRN (15:29)
[2017-11-16] MEDS ORDERED: HYDROmorphone *PCA* 10MG/50ML DISP.SYRIN PCA SCH (15:30)
[2017-11-16] MEDS ORDERED: PANTOPRAZOLE SODIUM 40 MG VIAL IVPUSH SCH (15:30)
[2017-11-16] MEDS: PANTOPRAZOLE 40 MG TABLET (FP) PO SCH (15:43)
[2017-11-16] MEDS ORDERED: HYDROmorphone *PCA* 10MG/50ML DISP.SYRIN PCA ONE (15:46)
[2017-11-17] MEDS: SODIUM BICARBONATE 8.4% - 50 MEQ in SODIUM CHLORIDE 0.45% 1,000 ML IV SCH ×2 (00:47→06:05)
[2017-11-17] MEDS: ACETAMINOPHEN 325 MG TABLET (FP) PO PRN (03:10)
[2017-11-17] MEDS: DOCUSATE SODIUM 100 MG CAPSULE (FP) PO SCH ×3 (05:55→21:47)
[2017-11-17] MEDS: GABAPENTIN 100 MG CAPSULE (FP) PO SCH ×3 (05:55→21:47)
[2017-11-17 07:19] LABS: BASO % 0.1 % (0-2.0); EOS % 0.2 % (0-4.5); HEMATOCRIT 19.4 % (35.4-49); LYMPH % 10.4 % (8-40); MCH 30.3 pg (25.7-33.7); MCHC 34.9 g/dl (32.0-35.9); MEAN PLT VOLUME 8.1 fl (7.5-11.1); MONO % 9.7 % (3.8-10.2); NEUT % 79.6 % (42.8-82.8); PLATELET COUNT 184 K/MM3 (134-434); RBC 2.23 M/mm3 (4.00-5.60); WHITE BLOOD COUNT 9.9 K/mm3 (4.0-10.0)
[2017-11-17 07:28] LABS: HEMOGLOBIN 6.8 GM/dL (11.7-16.9)
[2017-11-17 07:34] LABS: ALBUMIN 2.2 g/dl (3.4-5.0); ANION GAP 8 (8-16); BILIRUBIN,TOTAL 0.4 mg/dL (0.2-1.0); BLOOD UREA NITROGEN 23 mg/dL (7-18); CALCIUM 7.7 mg/dL (8.5-10.1); CHLORIDE 104 mmol/L (98-107); CO2 29 mmol/L (21-32); CREATININE 2.4 mg/dL (0.7-1.3); GLUCOSE,RANDOM 99 mg/dL (74-106); POTASSIUM 4.6 mmol/L (3.5-5.1); SGOT/AST 30 U/L (15-37); SGPT/ALT 15 U/L (12-78); SODIUM 141 mmol/L (136-145); TOT PROT 4.6 g/dl (6.4-8.2)
[2017-11-17 07:35] LABS: ALK PHOS 36 U/L (45-117)
[2017-11-17 08:42] LABS: LDH 370 U/L (87-241)
--- NOTE | 2017-11-17 09:16 | PN ---
Progress Note (short form) - Note Progress Note: Patient stable and resting comfortably in the bed but c/o pain score of 4-5/10 on Dilaudid route aide.Will continue route aide today and will f/u.
[2017-11-17] MEDS: CALCIUM 500MG/VIT-D 200 UNITS COMBO TABLET (FP) PO SCH (09:35)
[2017-11-17] MEDS: PANTOPRAZOLE 40 MG TABLET (FP) PO SCH (09:35)
[2017-11-17] MEDS: CYCLOBENZAPRINE HCL 10 MG TABLET (FP) PO SCH (09:35)
[2017-11-17] MEDS: POLYETHYLENE GLYCOL 3350 119 GM BTL PO SCH ×2 (10:00→21:47)
[2017-11-17] MEDS ORDERED: HYDROmorphone *PCA* 10MG/50ML DISP.SYRIN PCA ONE (12:08)
[2017-11-17] MEDS ORDERED: HYDROmorphone *PCA* 10MG/50ML DISP.SYRIN PCA SCH (12:22)
[2017-11-17] MEDS ORDERED: oxyCODONE HCL 5 MG TABLET PO PRN (12:36)
[2017-11-17] MEDS ORDERED: HYDROmorphone HCL CARPU-JECT 1 MG/1 ML DISP.SYRIN IVPB PRN (12:36)
[2017-11-17] MEDS: amLODIPine BESYLATE 5 MG TABLET (FP) PO SCH (13:52)
--- NOTE | 2017-11-17 14:27 | PN ---
Progress Note (short form) - Note Progress Note: Subjective: No fever or chills. had hiccups earlier. BM yesterday. no abd pain today. heart burn intermittently Objective: Vital Signs: Last Vital Signs Temp Pulse Resp BP Pulse Ox 98.6 F 93 H 20 161/94 98 11/17/17 13:00 11/17/17 13:00 11/17/17 13:00 11/17/17 13:00 11/16/17 21:00 Laboratory Results - last 24 hr 11/15/17 11/16/17 11/17/17 09:50 15:40 06:00 WBC 9.9 RBC 2.23 L Hgb 6.8 L* Hct 19.4 L MCV 87.0 MCH 30.3 MCHC 34.9 RDW 14.0 Plt Count 184 MPV 8.1 Neutrophils % 79.6 D Lymphocytes % 10.4 D Monocytes % 9.7 Eosinophils % 0.2 D Basophils % 0.1 Sodium Potassium Chloride Carbon Dioxide Anion Gap BUN Creatinine Creat Clearance w eGFR Random Glucose Calcium Total Bilirubin AST ALT Alkaline Phosphatase LD Total Creatine Kinase 578 H Creatine Kinase Index 0.2 CK-MB (CK-2) 1.524 Troponin I 0.62 H* Total Protein Albumin Blood Type O NEGATIVE Antibody Screen Negative Crossmatch See Detail 11/17/17 11/17/17 06:00 07:25 WBC RBC Hgb Hct MCV MCH MCHC RDW Plt Count MPV Neutrophils % Lymphocytes % Monocytes % Eosinophils % Basophils % Sodium 141 Potassium 4.6 Chloride 104 Carbon Dioxide 29 Anion Gap 8 BUN 23 H Creatinine 2.4 H Creat Clearance w eGFR 29.29 Random Glucose 99 Calcium 7.7 L Total Bilirubin 0.4 AST 30 D ALT 15 Alkaline Phosphatase 36 L LD Total 370 H Creatine Kinase 375 H Creatine Kinase Index 0.3 CK-MB (CK-2) 1.211 Troponin I 0.28 H D Cancelled Total Protein 4.6 L Albumin 2.2 L Blood Type Antibody Screen Crossmatch Physical Exam: NAD Cv: RRR lungs: CTAB Abd: soft, ND, NL BS. NT. decreased breath sounds MS: dressing over the T, and L spine. ext: no erythema or edema or tenderness ASSESSMENT AND PLAN: 47 y/o man with h/o back pain who presented for laminectomy and fusion 1- Fever: resolved .no evidence of infection or DVT . 2- Lower back pain s/p Laminectomies and fusion . dressing changed yesterday -d/w pt his pain regimen , and benefit/side effects . 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 - monitor 3- JEREMIE , 2/2 rhabdo and possible hypoperfusion during sx ( BL 1.1 ) - renal function cont to improve - cont IVF 3- Rhabdo : stop trending CPK - cont IVF 4- Anemia , likely Acute blood loss anemia. Hb is not responding to transfusion - transfuse today - check LDH and haptoglobin - SPEP with no M spike . - OB pending 5- Heart burn and Hiccups: - check KUB to r/o ileus - PPI 6- HTN: no reaction to norvasc yesterdy - cont norvasc 7- SCDs, no chemical prophylaxis for now due to anemia . Dispo: HLOC Visit type - Emergency Visit Emergency Visit: Yes ED Registration Date: 11/11/17 Care time: The patient presented to the Emergency Department on the above date and was hospitalized for further evaluation of their emergent condition. - New Patient This patient is new to me today: No - Critical Care Critical Care patient: No
--- NOTE | 2017-11-17 15:32 | EKG ---
Test Reason : Blood Pressure : / mmHG Vent. Rate : 106 BPM Atrial Rate : 106 BPM P-R Int : 158 ms QRS Dur : 090 ms QT Int : 332 ms P-R-T Axes : 049 015 009 degrees QTc Int : 441 ms SINUS TACHYCARDIA POSSIBLE INFERIOR INFARCT , AGE UNDETERMINED ABNORMAL ECG NO PREVIOUS ECGS AVAILABLE Confirmed by TOVA THAKUR, BRITT ([id number]) on 11/17/2017 3:32:05 PM Referred By: Dameon Maki Confirmed By:BRITT BERNARDO MD
[2017-11-17] MEDS: morphine SULFATE 4 MG/ML VIAL IVPUSH PRN ×2 (16:07→20:52)
--- NOTE | 2017-11-17 16:37 | PN ---
Progress Note, Physician History of Present Illness: Pt seen and examine at bedside. He is awake and alert. He denies shortness of breath. - Current Medication List Current Medications: Active Medications Acetaminophen (Tylenol -) 650 mg PO Q6H PRN PRN Reason: FEVER Last Admin: 11/17/17 03:10 Dose: 650 mg Amlodipine Besylate (Norvasc -) 5 mg PO DAILY [facility] Last Admin: 11/17/17 13:52 Dose: 5 mg Bacitracin/Polymyxin B Sulfate (Polysporin Ointment -) 1 applic TP BID [facility] Calcium Carbonate/Cholecalciferol (Os-Georges 500+D -) 2 tab PO DAILY [facility] Last Admin: 11/17/17 09:35 Dose: 2 tab Cyclobenzaprine HCl (Flexeril -) 5 mg PO DAILY [facility] Last Admin: 11/17/17 09:35 Dose: 5 mg Diphenhydramine HCl (Benadryl Injection -) 12.5 mg IVPUSH ONCE PRN PRN Reason: FOR ITCHING Docusate Sodium (Colace -) 100 mg PO TID [facility] Last Admin: 11/17/17 13:52 Dose: 100 mg Gabapentin (Neurontin -) 100 mg PO TID [facility] Last Admin: 11/17/17 13:52 Dose: 100 mg Sodium Bicarbonate 50 meq/ (Sodium Chloride) 1,050 mls @ 125 mls/hr IV Q8H [facility] Last Admin: 11/17/17 06:05 Dose: 125 mls/hr Morphine Sulfate (Morphine Sulfate) 4 mg IVPUSH Q4H PRN PRN Reason: PAIN LEVEL 7 - 10 Last Admin: 11/17/17 16:07 Dose: 4 mg Ondansetron HCl (Zofran Injection) 4 mg IVPUSH Q4H PRN PRN Reason: NAUSEA AND/OR VOMITING Ondansetron HCl (Zofran Odt -) 4 mg SL Q6H PRN PRN Reason: NAUSEA AND/OR VOMITING Oxycodone HCl (Roxicodone -) 10 mg PO Q4H PRN PRN Reason: PAIN LEVEL 4 - 6 Oxycodone HCl (Roxicodone -) 5 mg PO Q4H PRN PRN Reason: PAIN LEVEL 1 - 3 Pantoprazole Sodium (Protonix -) 40 mg PO DAILY [facility] Last Admin: 11/17/17 09:35 Dose: 40 mg Polyethylene Glycol (Miralax (For Daily Use) -) 17 gm PO BID [facility] Last Admin: 11/17/17 10:00 Dose: 17 grams Promethazine HCl (Phenergan Injection -) 12.5 mg IVPB Q6H PRN PRN Reason: NAUSEA AND/OR VOMITING - Objective Vital Signs: Vital Signs Temperature 98.6 F 11/17/17 13:00 Pulse Rate 96 H 11/17/17 14:00 Respiratory Rate 20 11/17/17 14:00 Blood Pressure 126/90 11/17/17 14:00 O2 Sat by Pulse Oximetry (%) 98 11/17/17 09:00 Constitutional: Yes: Calm Eyes: Yes: Conjunctiva Clear HENT: Yes: Atraumatic Neck: Yes: Supple Cardiovascular: Yes: S1, S2 Respiratory: Yes: CTA Bilaterally Gastrointestinal: Yes: Soft Genitourinary: Yes: WNL Musculoskeletal: Yes: Back Pain Edema: No Neurological: Yes: Oriented Psychiatric: Yes: Oriented Labs: CBC, BMP 11/17/17 06:00 11/17/17 06:00 Problem List - Problems (1) JEREMIE (acute kidney injury) Code(s): N17.9 - ACUTE KIDNEY FAILURE, UNSPECIFIED (2) Hyperkalemia Code(s): E87.5 - HYPERKALEMIA (3) Rhabdomyolysis Code(s): M62.82 - RHABDOMYOLYSIS Assessment/Plan Current Medications Generic Name Dose Route Start Last Admin Trade Name Freq PRN Reason Stop Dose Admin Acetaminophen 650 mg 11/15/17 01:58 11/17/17 03:10 Tylenol - PO 650 mg Q6H PRN Administration FEVER Amlodipine Besylate 5 mg 11/17/17 12:45 11/17/17 13:52 Norvasc - PO 5 mg DAILY [facility] Administration Bacitracin/Polymyxin B Sulfate 1 applic 11/17/17 22:00 Polysporin Ointment - TP BID [facility] Calcium Carbonate/Cholecalciferol 2 tab 11/13/17 12:30 11/17/17 09:35 Os-Georges 500+D - PO 2 tab DAILY [facility] Administration Cyclobenzaprine HCl 5 mg 11/14/17 11:30 11/17/17 09:35 Flexeril - PO 5 mg DAILY [facility] Administration Diphenhydramine HCl 12.5 mg 11/16/17 15:26 Benadryl Injection - IVPUSH ONCE PRN FOR ITCHING Docusate Sodium 100 mg 11/16/17 14:00 11/17/17 13:52 Colace - PO 100 mg TID [facility] Administration Gabapentin 100 mg 11/15/17 22:15 11/17/17 13:52 Neurontin - PO 100 mg TID [facility] Administration Sodium Bicarbonate 50 meq/ 1,050 mls @ 125 mls/hr 11/16/17 09:44 11/17/17 06: 05 Sodium Chloride IV 125 mls/hr Q8H [facility] Administration Morphine Sulfate 4 mg 11/17/17 14:48 11/17/17 16:07 Morphine Sulfate IVPUSH 4 mg Q4H PRN Administration PAIN LEVEL 7 - 10 Ondansetron HCl 4 mg 11/16/17 15:26 Zofran Injection IVPUSH Q4H PRN NAUSEA AND/OR VOMITING Ondansetron HCl 4 mg 11/16/17 15:29 Zofran Odt - SL Q6H PRN NAUSEA AND/OR VOMITING Oxycodone HCl 10 mg 11/17/17 12:36 Roxicodone - PO Q4H PRN PAIN LEVEL 4 - 6 Oxycodone HCl 5 mg 11/17/17 12:37 Roxicodone - PO Q4H PRN PAIN LEVEL 1 - 3 Pantoprazole Sodium 40 mg 11/16/17 15:30 11/17/17 09:35 Protonix - PO 40 mg DAILY [facility] Administration Polyethylene Glycol 17 gm 11/16/17 10:45 11/17/17 10:00 Miralax (For Daily Use) - PO 17 grams BID [facility] Administration Promethazine HCl 12.5 mg 11/16/17 15:26 Phenergan Injection - IVPB Q6H PRN NAUSEA AND/OR VOMITING Impression 1. JEREMIE 2. hyperkalemia 3. hx HTN 4. rhabdo 5. s/p laminectomy 6. anemia Plan - renal function continues to improve - cpk improving - repeat labs in am - low potassium diet - workup in progress - monitor volume status - will follow Dr Ward
[2017-11-17] MEDS: SODIUM CHLORIDE 0.45% 1,000 ML IV SCH ×2 (17:34→21:48)
[2017-11-17] MEDS: oxyCODONE HCL 5 MG TABLET PO PRN (17:39)
[2017-11-17 20:31] LABS: HEMATOCRIT 24.1 % (35.4-49); HEMOGLOBIN 8.2 GM/dL (11.7-16.9); MCH 29.5 pg (25.7-33.7); MCHC 33.9 g/dl (32.0-35.9); MEAN CELL VOLUME 86.8 fl (80-96); MEAN PLT VOLUME 7.9 fl (7.5-11.1); PLATELET COUNT 278 K/MM3 (134-434); RBC 2.77 M/mm3 (4.00-5.60); RDW 14.5 % (11.9-15.9); WHITE BLOOD COUNT 14.7 K/mm3 (4.0-10.0)
[2017-11-17] MEDS: BACITRACIN/POLYMYXIN B SULFATE 15 GM TUBE TP SCH (21:47)
[2017-11-18] MEDS: morphine SULFATE 4 MG/ML VIAL IVPUSH PRN ×3 (03:00→14:29)
[2017-11-18] MEDS: GABAPENTIN 100 MG CAPSULE (FP) PO SCH ×3 (05:51→21:29)
[2017-11-18] MEDS: DOCUSATE SODIUM 100 MG CAPSULE (FP) PO SCH ×3 (05:51→21:28)
[2017-11-18] MEDS: oxyCODONE HCL 5 MG TABLET PO PRN ×2 (06:17→23:29)
[2017-11-18 07:06] LABS: HEMATOCRIT 22.7 % (35.4-49); HEMOGLOBIN 7.7 GM/dL (11.7-16.9); MCH 29.2 pg (25.7-33.7); MCHC 33.7 g/dl (32.0-35.9); MEAN CELL VOLUME 86.8 fl (80-96); MEAN PLT VOLUME 7.5 fl (7.5-11.1); PLATELET COUNT 293 K/MM3 (134-434); RBC 2.62 M/mm3 (4.00-5.60); RDW 14.1 % (11.9-15.9); WHITE BLOOD COUNT 12.8 K/mm3 (4.0-10.0)
[2017-11-18 07:26] LABS: ANION GAP 7 (8-16); BLOOD UREA NITROGEN 19 mg/dL (7-18); CALCIUM 7.8 mg/dL (8.5-10.1); CHLORIDE 106 mmol/L (98-107); CO2 29 mmol/L (21-32); CREATININE 2.3 mg/dL (0.7-1.3); GLUCOSE,RANDOM 85 mg/dL (74-106); POTASSIUM 4.2 mmol/L (3.5-5.1); SODIUM 142 mmol/L (136-145)
[2017-11-18] MEDS: CALCIUM 500MG/VIT-D 200 UNITS COMBO TABLET (FP) PO SCH (10:19)
[2017-11-18] MEDS: CYCLOBENZAPRINE HCL 10 MG TABLET (FP) PO SCH (10:19)
[2017-11-18] MEDS: PANTOPRAZOLE 40 MG TABLET (FP) PO SCH (10:21)
[2017-11-18] MEDS: amLODIPine BESYLATE 5 MG TABLET (FP) PO SCH (10:21)
[2017-11-18] MEDS: POLYETHYLENE GLYCOL 3350 119 GM BTL PO SCH ×2 (10:21→21:29)
[2017-11-18] MEDS: BACITRACIN/POLYMYXIN B SULFATE 15 GM TUBE TP SCH ×2 (10:22→21:30)
[2017-11-18] MEDS ORDERED: HYDROmorphone *PCA* 10MG/50ML DISP.SYRIN PCA SCH (12:22)
[2017-11-18] MEDS ORDERED: MAGNESIUM CITRATE 300 ML BOTTLE PO ONE (12:30)
[2017-11-18] MEDS: amLODIPine BESYLATE 10 MG TABLET (FP) PO SCH (12:36)
[2017-11-18] MEDS: oxyCODONE HCL 10 MG SUSTAINED ACTING TABLET PO SCH ×2 (12:47→21:29)
--- NOTE | 2017-11-18 13:21 | PN ---
Progress Note, Physician History of Present Illness: Pt seen and examined at bedside. He is awake and alert. He denies shortness of breath. - Current Medication List Current Medications: Active Medications Acetaminophen (Tylenol -) 650 mg PO Q6H PRN PRN Reason: FEVER Last Admin: 11/17/17 03:10 Dose: 650 mg Amlodipine Besylate (Norvasc -) 10 mg PO DAILY [facility] Last Admin: 11/18/17 12:36 Dose: 10 mg Bacitracin/Polymyxin B Sulfate (Polysporin Ointment -) 1 applic TP BID [facility] Last Admin: 11/18/17 10:22 Dose: 1 applic Calcium Carbonate/Cholecalciferol (Os-Georges 500+D -) 2 tab PO DAILY [facility] Last Admin: 11/18/17 10:19 Dose: 2 tab Cyclobenzaprine HCl (Flexeril -) 5 mg PO DAILY [facility] Last Admin: 11/18/17 10:19 Dose: 5 mg Diphenhydramine HCl (Benadryl Injection -) 12.5 mg IVPUSH ONCE PRN PRN Reason: FOR ITCHING Docusate Sodium (Colace -) 100 mg PO TID [facility] Last Admin: 11/18/17 05:51 Dose: 100 mg Gabapentin (Neurontin -) 100 mg PO TID [facility] Last Admin: 11/18/17 05:51 Dose: 100 mg Sodium Chloride (1/2 Normal Saline) 1,000 mls @ 75 mls/hr IV ASDIR [facility] Last Admin: 11/17/17 21:48 Dose: 75 mls/hr Morphine Sulfate (Morphine Sulfate) 4 mg IVPUSH Q4H PRN PRN Reason: PAIN LEVEL 7 - 10 Last Admin: 11/18/17 08:47 Dose: 4 mg Ondansetron HCl (Zofran Injection) 4 mg IVPUSH Q4H PRN PRN Reason: NAUSEA AND/OR VOMITING Ondansetron HCl (Zofran Odt -) 4 mg SL Q6H PRN PRN Reason: NAUSEA AND/OR VOMITING Oxycodone HCl (Roxicodone -) 5 mg PO Q4H PRN PRN Reason: PAIN LEVEL 1 - 3 Last Admin: 11/18/17 06:17 Dose: 5 mg Oxycodone HCl (Oxycontin -) 10 mg PO BID [facility] Last Admin: 11/18/17 12:47 Dose: 10 mg Pantoprazole Sodium (Protonix -) 40 mg PO DAILY [facility] Last Admin: 11/18/17 10:21 Dose: 40 mg Polyethylene Glycol (Miralax (For Daily Use) -) 17 gm PO BID [facility] Last Admin: 11/18/17 10:21 Dose: 17 grams Promethazine HCl (Phenergan Injection -) 12.5 mg IVPB Q6H PRN PRN Reason: NAUSEA AND/OR VOMITING - Objective Vital Signs: Vital Signs Temperature 98.8 F 11/18/17 09:00 Pulse Rate 95 H 11/18/17 09:00 Respiratory Rate 18 11/18/17 09:00 Blood Pressure 151/83 11/18/17 09:00 O2 Sat by Pulse Oximetry (%) 97 11/17/17 21:00 Constitutional: Yes: Calm Eyes: Yes: Conjunctiva Clear HENT: Yes: Atraumatic Cardiovascular: Yes: S1, S2 Respiratory: Yes: CTA Bilaterally Gastrointestinal: Yes: Normal Bowel Sounds, Soft Genitourinary: Yes: WNL Musculoskeletal: Yes: Back Pain Edema: No Neurological: Yes: Oriented Psychiatric: Yes: Oriented Labs: CBC, BMP 11/18/17 06:00 11/18/17 06:00 Problem List - Problems (1) JEREMIE (acute kidney injury) Code(s): N17.9 - ACUTE KIDNEY FAILURE, UNSPECIFIED (2) Hyperkalemia Code(s): E87.5 - HYPERKALEMIA (3) Rhabdomyolysis Code(s): M62.82 - RHABDOMYOLYSIS Assessment/Plan Current Medications Generic Name Dose Route Start Last Admin Trade Name Miloq PRN Reason Stop Dose Admin Acetaminophen 650 mg 11/15/17 01:58 11/17/17 03:10 Tylenol - PO 650 mg Q6H PRN Administration FEVER Amlodipine Besylate 10 mg 11/18/17 12:30 11/18/17 12:36 Norvasc - PO 10 mg DAILY [facility] Administration Bacitracin/Polymyxin B Sulfate 1 applic 11/17/17 22:00 11/18/17 10:22 Polysporin Ointment - TP 1 applic BID [facility] Administration Calcium Carbonate/Cholecalciferol 2 tab 11/13/17 12:30 11/18/17 10:19 Os-Georges 500+D - PO 2 tab DAILY [facility] Administration Cyclobenzaprine HCl 5 mg 11/14/17 11:30 11/18/17 10:19 Flexeril - PO 5 mg DAILY [facility] Administration Diphenhydramine HCl 12.5 mg 11/16/17 15:26 Benadryl Injection - IVPUSH ONCE PRN FOR ITCHING Docusate Sodium 100 mg 11/16/17 14:00 11/18/17 05:51 Colace - PO 100 mg TID [facility] Administration Gabapentin 100 mg 11/15/17 22:15 11/18/17 05:51 Neurontin - PO 100 mg TID [facility] Administration Sodium Chloride 1,000 mls @ 75 mls/hr 11/17/17 16:45 11/17/17 21:48 1/2 Normal Saline IV 75 mls/hr ASDIR [facility] Administration Morphine Sulfate 4 mg 11/17/17 14:48 11/18/17 08:47 Morphine Sulfate IVPUSH 4 mg Q4H PRN Administration PAIN LEVEL 7 - 10 Ondansetron HCl 4 mg 11/16/17 15:26 Zofran Injection IVPUSH Q4H PRN NAUSEA AND/OR VOMITING Ondansetron HCl 4 mg 11/16/17 15:29 Zofran Odt - SL Q6H PRN NAUSEA AND/OR VOMITING Oxycodone HCl 5 mg 11/17/17 12:37 11/18/17 06:17 Roxicodone - PO 5 mg Q4H PRN Administration PAIN LEVEL 1 - 3 Oxycodone HCl 10 mg 11/18/17 12:45 11/18/17 12:47 Oxycontin - PO 10 mg BID [facility] Administration Pantoprazole Sodium 40 mg 11/16/17 15:30 11/18/17 10:21 Protonix - PO 40 mg DAILY [facility] Administration Polyethylene Glycol 17 gm 11/16/17 10:45 11/18/17 10:21 Miralax (For Daily Use) - PO 17 grams BID [facility] Administration Promethazine HCl 12.5 mg 11/16/17 15:26 Phenergan Injection - IVPB Q6H PRN NAUSEA AND/OR VOMITING Laboratory Tests 11/13/17 17:30 LAURENCE M-Yassine Not observed ZA Screen Negative c-ANCA Pending Proteinase 3 (PR3) Pending p-ANCA Pending Atypical p-ANCA Pending Myeloperoxidase Ab Pending Double Strand DNA Ab <1 Glomerular Base Memb Ab Pending Hepatitis A Ab Total Negative Hep Bs Antigen Negative Hep Bs Antibody Non reactive Hep B Core Total Ab Negative Impression 1. JEREMIE 2. hyperkalemia 3. hx HTN 4. rhabdo 5. s/p laminectomy 6. anemia Plan - check cpk level - renal function is improving - likely has some ckd from years of nsaid use - serologic workup is in progress - monitor volume status - will follow Dr Ward
[2017-11-18 13:23] LABS: ALBUMIN 2.4 g/dl (3.4-5.0); ALK PHOS 36 U/L (45-117); BILIRUBIN,DIRECT 0.2 mg/dL (0.0-0.2); BILIRUBIN,TOTAL 0.4 mg/dL (0.2-1.0); SGOT/AST 24 U/L (15-37); SGPT/ALT 24 U/L (12-78); TOT PROT 4.8 g/dl (6.4-8.2)
--- NOTE | 2017-11-18 13:34 | PN ---
Physical Exam: SUBJECTIVE: Patient seen and examined No acute events overnight. Continues to have pain overnight, not completely controlled. Patient walking around the room this morning. OBJECTIVE: Vital Signs Period Temp Pulse Resp BP Sys/Yo Pulse Ox Last 24 Hr 98.4 F-98.8 F 94-104 18-20 126-153/83-100 97 GENERAL: The patient is awake, alert, and fully oriented, in no acute distress. HEAD: Normal with no signs of trauma. EYES: Extraocular movements intact, sclera anicteric, conjunctiva clear. No ptosis. ENT: Oropharynx clear without exudates, moist mucous membranes. NECK: Trachea midline, full range of motion, supple. LUNGS: Breath sounds equal, clear to auscultation bilaterally, no wheezes, no crackles, no accessory muscle use. HEART: Tachycardic, Regular rhythm, S1, S2 without murmur, rub or gallop. ABDOMEN: Soft, nontender, nondistended, hypoactive bowel sounds, no guarding, no rebound, no hepatosplenomegaly, no masses. EXTREMITIES: 2+ pulses, warm, well-perfused, no edema. NEUROLOGICAL: Cranial nerves II through XII grossly intact. normal speech. 5/5 strength in LLE proximally and distally, 4/5 strength in RLE proximally and 5/5 distally. sensation intact b/l, 2+ reflexes PSYCH: Normal mood, normal affect. SKIN: Warm, dry, normal turgor, no rashes or lesions noted MSK: dressing place Laboratory Results - last 24 hr 11/15/17 11/17/17 11/18/17 09:50 20:00 06:00 WBC 14.7 H D 12.8 H RBC 2.77 L D 2.62 L Hgb 8.2 L D 7.7 L Hct 24.1 L D 22.7 L MCV 86.8 86.8 MCH 29.5 29.2 MCHC 33.9 33.7 RDW 14.5 14.1 Plt Count 278 D 293 MPV 7.9 7.5 Sodium Potassium Chloride Carbon Dioxide Anion Gap BUN Creatinine Random Glucose Calcium Total Bilirubin Direct Bilirubin AST ALT Alkaline Phosphatase Total Protein Albumin Blood Type O NEGATIVE Antibody Screen Negative Crossmatch See Detail 11/18/17 11/18/17 06:00 06:00 WBC RBC Hgb Hct MCV MCH MCHC RDW Plt Count MPV Sodium 142 Potassium 4.2 Chloride 106 Carbon Dioxide 29 Anion Gap 7 L BUN 19 H Creatinine 2.3 H Random Glucose 85 Calcium 7.8 L Total Bilirubin 0.4 Cancelled Direct Bilirubin 0.2 Cancelled AST 24 Cancelled ALT 24 D Cancelled Alkaline Phosphatase 36 L Cancelled Total Protein 4.8 L Cancelled Albumin 2.4 L Cancelled Blood Type Antibody Screen Crossmatch Active Medications Generic Name Dose Route Start Last Admin Trade Name Freq PRN Reason Stop Dose Admin Acetaminophen 650 mg 11/15/17 01:58 11/17/17 03:10 Tylenol - PO 650 mg Q6H PRN Administration FEVER Amlodipine Besylate 10 mg 11/18/17 12:30 11/18/17 12:36 Norvasc - PO 10 mg DAILY [facility] Administration Bacitracin/Polymyxin B Sulfate 1 applic 11/17/17 22:00 11/18/17 10:22 Polysporin Ointment - TP 1 applic BID [facility] Administration Calcium Carbonate/Cholecalciferol 2 tab 11/13/17 12:30 11/18/17 10:19 Os-Georges 500+D - PO 2 tab DAILY [facility] Administration Cyclobenzaprine HCl 5 mg 11/14/17 11:30 11/18/17 10:19 Flexeril - PO 5 mg DAILY [facility] Administration Diphenhydramine HCl 12.5 mg 11/16/17 15:26 Benadryl Injection - IVPUSH ONCE PRN FOR ITCHING Docusate Sodium 100 mg 11/16/17 14:00 11/18/17 05:51 Colace - PO 100 mg TID [facility] Administration Gabapentin 100 mg 11/15/17 22:15 11/18/17 05:51 Neurontin - PO 100 mg TID [facility] Administration Sodium Chloride 1,000 mls @ 75 mls/hr 11/17/17 16:45 11/17/17 21:48 1/2 Normal Saline IV 75 mls/hr ASDIR [facility] Administration Morphine Sulfate 4 mg 11/17/17 14:48 11/18/17 08:47 Morphine Sulfate IVPUSH 4 mg Q4H PRN Administration PAIN LEVEL 7 - 10 Ondansetron HCl 4 mg 11/16/17 15:26 Zofran Injection IVPUSH Q4H PRN NAUSEA AND/OR VOMITING Ondansetron HCl 4 mg 11/16/17 15:29 Zofran Odt - SL Q6H PRN NAUSEA AND/OR VOMITING Oxycodone HCl 5 mg 11/17/17 12:37 11/18/17 06:17 Roxicodone - PO 5 mg Q4H PRN Administration PAIN LEVEL 1 - 3 Oxycodone HCl 10 mg 11/18/17 12:45 11/18/17 12:47 Oxycontin - PO 10 mg BID [facility] Administration Pantoprazole Sodium 40 mg 11/16/17 15:30 11/18/17 10:21 Protonix - PO 40 mg DAILY [facility] Administration Polyethylene Glycol 17 gm 11/16/17 10:45 11/18/17 10:21 Miralax (For Daily Use) - PO 17 grams BID [facility] Administration Promethazine HCl 12.5 mg 11/16/17 15:26 Phenergan Injection - IVPB Q6H PRN NAUSEA AND/OR VOMITING ASSESSMENT/PLAN: 47 year old M with no pmh presented post op L2-S1 laminectomies, L3-4, L4-5, L5- S1 PLIF, T8-S1 PISF, and Multi-layered, complex wound closure (~40cm). #New post op fever, resolved -Cultures, UA, Cxr negative to date. -b/l dvt studies negative -Abdomen u/s --negative -Surgery removed drain and dressing has been changed #Abdominal pain -Miralax bid and colace tid, mag citrate given today -RUQ u/s negative for acute pathology. #Post op s/p L2-S1 laminectomies, L3-4, L4-5, L5-S1 PLIF, T8-S1 PISF, and Multi- layered, complex wound closure -Zofran/Promethazine for nausea -Pain control with Gabapentin tid and morphine, Oxycontin bid added, oxycodone po prn -Flexeril daily -Incentive spirometer/Chest PT -PT/OT, OOB, weight bearing as tolerated -reno dc -Passing flatus #JEREMIE 2/2 to ?rhabdo vs indomethacin use, baseline is 1.1 -CPK improving -1/2 NS @ 75 cc/hr -Monitor cr, urine output -Renal/bladder u/s--no abnormalities -Renal consult, Dr. Ward -immunology/serology pending #HTN -Norvasc increased to 10 mg daily #GERD -Protonix 40 mg po daily #Acute blood loss anemia 2/2 to blood loss likely from surgery -1 prbc given yesterday -will monitor cbc -LD elevated -monitor Haptoglobin #FEN/GI -1/2 NS @ 75 cc/hr -wnl -low K diet #PPx -scds Visit type - Emergency Visit Emergency Visit: Yes ED Registration Date: 11/11/17 Care time: The patient presented to the Emergency Department on the above date and was hospitalized for further evaluation of their emergent condition. - New Patient This patient is new to me today: No - Critical Care Critical Care patient: No
--- NOTE | 2017-11-18 16:33 | PN ---
Teaching Attending Note Name of Resident: Arnel Nettles ATTENDING PHYSICIAN STATEMENT I saw and evaluated the patient. I reviewed the resident's note and discussed the case with the resident. I agree with the resident's findings and plan as documented. SUBJECTIVE: No fever or chills . no heart burn or hiccups today. no bd pain. no BM x 2 days . no N/V , tolerated diet OBJECTIVE: NAD Cv: RRR lungs: CTAB Abd: soft, ND, NL BS. NT. decreased breath sounds MS: dressing over the T, and L spine. ext: no erythema or edema or tenderness Neuro : strength 4/5 in both hips, 4/5 in R knee flexion and extension , 5/5 L knee flexion and extension . 5/5 in both plantar flexion and dorsiflexion nl sensation in LE . 2+ knee jerk b/l ASSESSMENT AND PLAN: 47 y/o man with h/o back pain who presented for laminectomy and fusion 1- Fever: resolved .no evidence of infection or DVT . 2- Lower back pain s/p Laminectomies and fusion . -cont IV morphine, add oxycontin BID , cont 5 mg of oxycodone and dc 10 mg . 3- JEREMIE , 2/2 rhabdo and possible hypoperfusion during sx ( BL 1.1 ) - renal function cont to improve - cont IVF 3- Rhabdo : - cont IVF 4- Anemia , likely Acute blood loss anemia. Hb is not responding to transfusion - transfused yesterday - LDH slightly evelated( non specific ). haptoglobin pending - SPEP with no M spike . - OB pending 5- Ileus : due to immobility and pain meds - bowel regimen.. - monitor . - cont current diet 6- HTN: - cont norvasc . increase dose 7- SCDs, no chemical prophylaxis for now due to anemia . Dispo: [facility]
[2017-11-18] MEDS: SODIUM CHLORIDE 0.45% 1,000 ML IV SCH (18:20)
[2017-11-18 19:18] LABS: BASO % 0.7 % (0-2.0); EOS % 4.2 % (0-4.5); HEMATOCRIT 26.5 % (35.4-49); HEMOGLOBIN 8.9 GM/dL (11.7-16.9); LYMPH % 12.9 % (8-40); MCHC 33.6 g/dl (32.0-35.9); MEAN CELL VOLUME 86.3 fl (80-96); MEAN PLT VOLUME 8.2 fl (7.5-11.1); MONO % 10.1 % (3.8-10.2); NEUT % 72.1 % (42.8-82.8); PLATELET COUNT 382 K/MM3 (134-434); RBC 3.07 M/mm3 (4.00-5.60); RDW 14.3 % (11.9-15.9); WHITE BLOOD COUNT 14.7 K/mm3 (4.0-10.0)
--- NOTE | 2017-11-18 20:25 | PN ---
Progress Note (short form) - Note Progress Note: POD#7 Ready for D/C to rehab ?Ledezma Vitals all ok Bloods Renal consult to be sought MSkeletal Wound dry Walking with kyphosis have stabilized with SP osteotomies and Instrumentation Will require PT and weight reduction. PLAN Pain Mx PT Mobilise in range of comfort Dry dressings PRN See in office 3 weeks
--- NOTE | 2017-11-18 20:32 | PN ---
Progress Note (short form) - Note Progress Note: Note for November 16 2017 Patient sitting C/O L calf pain No significant back pain Wound dry Drains in situ Removed by myself New dressing applied. PLAN PT mobilize as tolerated Pain MX D/C planning
[2017-11-18] MEDS ORDERED: oxyCODONE HCL 10 MG SUSTAINED ACTING TABLET PO SCH (22:00)
[2017-11-19 00:09] LABS: ATYPICAL pANCA <1:20 titer (Neg:<1:20); C-ANCA <1:20 titer (Neg:<1:20); P-ANCA <1:20 titer (Neg:<1:20); PROTEINASE-3 ANTIBODY <3.5 U/mL (0.0-3.5)
[2017-11-19] MEDS: DOCUSATE SODIUM 100 MG CAPSULE (FP) PO SCH ×3 (05:57→21:22)
[2017-11-19] MEDS: GABAPENTIN 100 MG CAPSULE (FP) PO SCH ×3 (05:57→21:23)
[2017-11-19] MEDS: SODIUM CHLORIDE 0.45% 1,000 ML IV SCH ×2 (06:46→21:19)
[2017-11-19 07:54] LABS: BASO % 0.6 % (0-2.0); EOS % 5.2 % (0-4.5); HEMATOCRIT 25.3 % (35.4-49); HEMOGLOBIN 8.5 GM/dL (11.7-16.9); LYMPH % 14.7 % (8-40); MCH 29.2 pg (25.7-33.7); MCHC 33.8 g/dl (32.0-35.9); MEAN CELL VOLUME 86.3 fl (80-96); MEAN PLT VOLUME 7.2 fl (7.5-11.1); MONO % 10.1 % (3.8-10.2); NEUT % 69.4 % (42.8-82.8); PLATELET COUNT 399 K/MM3 (134-434); RBC 2.93 M/mm3 (4.00-5.60); RDW 14.5 % (11.9-15.9); WHITE BLOOD COUNT 14.3 K/mm3 (4.0-10.0)
[2017-11-19 08:30] LABS: CHLORIDE 105 mmol/L (98-107); POTASSIUM 3.9 mmol/L (3.5-5.1); SODIUM 139 mmol/L (136-145)
[2017-11-19 08:33] LABS: ALBUMIN 2.7 g/dl (3.4-5.0); ALK PHOS 42 U/L (45-117); ANION GAP 7 (8-16); BILIRUBIN,TOTAL 0.7 mg/dL (0.2-1.0); BLOOD UREA NITROGEN 15 mg/dL (7-18); CALCIUM 8.1 mg/dL (8.5-10.1); CO2 27 mmol/L (21-32); CREATININE 1.9 mg/dL (0.7-1.3); GLUCOSE,RANDOM 83 mg/dL (74-106); SGOT/AST 23 U/L (15-37); SGPT/ALT 18 U/L (12-78); TOT PROT 5.7 g/dl (6.4-8.2)
[2017-11-19] MEDS ORDERED: PT OWN MED DRAWER 7, Y5N ONE (09:35)
[2017-11-19] MEDS: CYCLOBENZAPRINE HCL 10 MG TABLET (FP) PO SCH (09:39)
[2017-11-19] MEDS: CALCIUM 500MG/VIT-D 200 UNITS COMBO TABLET (FP) PO SCH (09:49)
[2017-11-19] MEDS: POLYETHYLENE GLYCOL 3350 119 GM BTL PO SCH ×2 (09:49→21:22)
[2017-11-19] MEDS: amLODIPine BESYLATE 10 MG TABLET (FP) PO SCH (09:49)
[2017-11-19] MEDS: oxyCODONE HCL 10 MG SUSTAINED ACTING TABLET PO SCH ×2 (09:49→21:24)
[2017-11-19] MEDS: BACITRACIN/POLYMYXIN B SULFATE 15 GM TUBE TP SCH ×2 (09:50→21:31)
[2017-11-19] MEDS: PANTOPRAZOLE 40 MG TABLET (FP) PO SCH (09:50)
[2017-11-19] MEDS: morphine SULFATE 4 MG/ML VIAL IVPUSH PRN (13:56)
--- NOTE | 2017-11-19 14:21 | PN ---
Physical Exam: SUBJECTIVE: Patient seen and examined No events overnight. Pain is 5/10 this morning. Feeling well. OBJECTIVE: Vital Signs Period Temp Pulse Resp BP Sys/Yo Pulse Ox Last 24 Hr 97.0 F-98.7 F 96-101 18-20 126-154/75-96 99 GENERAL: The patient is awake, alert, and fully oriented, in no acute distress. HEAD: Normal with no signs of trauma. EYES: Extraocular movements intact, sclera anicteric, conjunctiva clear. No ptosis. ENT: Oropharynx clear without exudates, moist mucous membranes. NECK: Trachea midline, full range of motion, supple. LUNGS: Breath sounds equal, clear to auscultation bilaterally, no wheezes, no crackles, no accessory muscle use. HEART: Tachycardic, Regular rhythm, S1, S2 without murmur, rub or gallop. ABDOMEN: Soft, nontender, nondistended, hypoactive bowel sounds, no guarding, no rebound, no hepatosplenomegaly, no masses. EXTREMITIES: 2+ pulses, warm, well-perfused, no edema. NEUROLOGICAL: Cranial nerves II through XII grossly intact. normal speech. 5/5 strength in LLE proximally and distally, 4/5 strength in RLE proximally and 5/5 distally. sensation intact b/l, 2+ reflexes PSYCH: Normal mood, normal affect. SKIN: Warm, dry, normal turgor, no rashes or lesions noted MSK: dressing place Laboratory Results - last 24 hr 11/13/17 11/17/17 11/18/17 17:30 08:15 17:30 WBC 14.7 H RBC 3.07 L Hgb 8.9 L D Hct 26.5 L D MCV 86.3 MCH 29.0 MCHC 33.6 RDW 14.3 Plt Count 382 D MPV 8.2 Neutrophils % 72.1 Lymphocytes % 12.9 D Monocytes % 10.1 Eosinophils % 4.2 D Basophils % 0.7 D Haptoglobin 221 H Sodium Potassium Chloride Carbon Dioxide Anion Gap BUN Creatinine Creat Clearance w eGFR Random Glucose Calcium Total Bilirubin AST ALT Alkaline Phosphatase Creatine Kinase Creatine Kinase Index CK-MB (CK-2) Total Protein Albumin Stool Occult Blood c-ANCA <1:20 Proteinase 3 (PR3) <3.5 p-ANCA <1:20 Atypical p-ANCA <1:20 Myeloperoxidase Ab <9.0 HCV Quantitation Hcv not detected 11/18/17 11/19/17 11/19/17 23:01 06:20 06:20 WBC 14.3 H RBC 2.93 L Hgb 8.5 L Hct 25.3 L MCV 86.3 MCH 29.2 MCHC 33.8 RDW 14.5 Plt Count 399 MPV 7.2 L D Neutrophils % 69.4 Lymphocytes % 14.7 Monocytes % 10.1 Eosinophils % 5.2 H Basophils % 0.6 Haptoglobin Sodium 139 Potassium 3.9 Chloride 105 Carbon Dioxide 27 Anion Gap 7 L BUN 15 D Creatinine 1.9 H Creat Clearance w eGFR 38.35 Random Glucose 83 Calcium 8.1 L Total Bilirubin 0.7 D AST 23 ALT 18 D Alkaline Phosphatase 42 L Creatine Kinase 216 Creatine Kinase Index 0.8 CK-MB (CK-2) 1.753 Total Protein 5.7 L Albumin 2.7 L Stool Occult Blood Negative c-ANCA Proteinase 3 (PR3) p-ANCA Atypical p-ANCA Myeloperoxidase Ab HCV Quantitation Active Medications Generic Name Dose Route Start Last Admin Trade Name Miloq PRN Reason Stop Dose Admin Acetaminophen 650 mg 11/15/17 01:58 11/17/17 03:10 Tylenol - PO 650 mg Q6H PRN Administration FEVER Amlodipine Besylate 10 mg 11/18/17 12:30 11/19/17 09:49 Norvasc - PO 10 mg DAILY [facility] Administration Bacitracin/Polymyxin B Sulfate 1 applic 11/17/17 22:00 11/19/17 09:50 Polysporin Ointment - TP 1 applic BID [facility] Administration Calcium Carbonate/Cholecalciferol 2 tab 11/13/17 12:30 11/19/17 09:49 Os-Georges 500+D - PO 2 tab DAILY [facility] Administration Cyclobenzaprine HCl 5 mg 11/14/17 11:30 11/19/17 09:39 Flexeril - PO 5 mg DAILY [facility] Administration Diphenhydramine HCl 12.5 mg 11/16/17 15:26 Benadryl Injection - IVPUSH ONCE PRN FOR ITCHING Docusate Sodium 100 mg 11/16/17 14:00 11/19/17 13:52 Colace - PO Not Given TID [facility] Gabapentin 100 mg 11/15/17 22:15 11/19/17 13:52 Neurontin - PO 100 mg TID [facility] Administration Sodium Chloride 1,000 mls @ 75 mls/hr 11/17/17 16:45 11/19/17 06:46 1/2 Normal Saline IV 75 mls/hr ASDIR [facility] Administration Morphine Sulfate 4 mg 11/17/17 14:48 11/19/17 13:56 Morphine Sulfate IVPUSH 4 mg Q4H PRN Administration PAIN LEVEL 7 - 10 Ondansetron HCl 4 mg 11/16/17 15:26 Zofran Injection IVPUSH Q4H PRN NAUSEA AND/OR VOMITING Ondansetron HCl 4 mg 11/16/17 15:29 Zofran Odt - SL Q6H PRN NAUSEA AND/OR VOMITING Oxycodone HCl 5 mg 11/17/17 12:37 11/18/17 23:29 Roxicodone - PO 5 mg Q4H PRN Administration PAIN LEVEL 1 - 3 Oxycodone HCl 10 mg 11/18/17 12:45 11/19/17 09:49 Oxycontin - PO 10 mg BID [facility] Administration Pantoprazole Sodium 40 mg 11/16/17 15:30 11/19/17 09:50 Protonix - PO 40 mg DAILY [facility] Administration Polyethylene Glycol 17 gm 11/16/17 10:45 11/19/17 09:49 Miralax (For Daily Use) - PO Not Given BID [facility] Promethazine HCl 12.5 mg 11/16/17 15:26 Phenergan Injection - IVPB Q6H PRN NAUSEA AND/OR VOMITING ASSESSMENT/PLAN: 47 year old M with no pmh presented post op L2-S1 laminectomies, L3-4, L4-5, L5- S1 PLIF, T8-S1 PISF, and Multi-layered, complex wound closure (~40cm). #New post op fever, resolved -Cultures, UA, Cxr negative to date. -b/l dvt studies negative -Abdomen u/s --negative -Surgery removed drain and dressing has been changed #Abdominal pain -Miralax bid and colace tid, mag citrate given today -RUQ u/s negative for acute pathology. #Post op s/p L2-S1 laminectomies, L3-4, L4-5, L5-S1 PLIF, T8-S1 PISF, and Multi- layered, complex wound closure -Zofran/Promethazine for nausea -Pain control with Gabapentin tid, oxycontin bid and oxycodone po prn -Flexeril daily -Incentive spirometer/Chest PT -PT/OT, OOB, weight bearing as tolerated -reno dc -Passing flatus #JEREMIE 2/2 to ?rhabdo vs indomethacin use, baseline is 1.1 -CPK improving -1/2 NS @ 75 cc/hr -Monitor cr, urine output -Renal/bladder u/s--no abnormalities -Renal consult, Dr. Ward -immunology/serology pending #HTN -Norvasc increased to 10 mg daily #GERD -Protonix 40 mg po daily #Acute blood loss anemia 2/2 to blood loss likely from surgery -stable -will monitor cbc -LD elevated -Haptoglobin elevated #FEN/GI -1/2 NS @ 75 cc/hr -wnl -low K diet #PPx -scds Dispo: makayla to [facility] in AM Visit type - Emergency Visit Emergency Visit: Yes ED Registration Date: 11/11/17 Care time: The patient presented to the Emergency Department on the above date and was hospitalized for further evaluation of their emergent condition. - New Patient This patient is new to me today: No - Critical Care Critical Care patient: No
[2017-11-19 14:22] LABS: ANTIGLOMERULAR BASEMENT MEN.AB 2 units (0-20)
[2017-11-19] MEDS ORDERED: oxyCODONE HCL 5 MG TABLET PO PRN (15:52)
--- NOTE | 2017-11-19 17:04 | PN ---
Progress Note, Physician History of Present Illness: Pt seen and examined at bedside. He denies shortness of breath or edema. He is awake and alert. - Current Medication List Current Medications: Active Medications Acetaminophen (Tylenol -) 650 mg PO Q6H PRN PRN Reason: FEVER Last Admin: 11/17/17 03:10 Dose: 650 mg Amlodipine Besylate (Norvasc -) 10 mg PO DAILY [facility] Last Admin: 11/19/17 09:49 Dose: 10 mg Bacitracin/Polymyxin B Sulfate (Polysporin Ointment -) 1 applic TP BID [facility] Last Admin: 11/19/17 09:50 Dose: 1 applic Calcium Carbonate/Cholecalciferol (Os-Georges 500+D -) 2 tab PO DAILY [facility] Last Admin: 11/19/17 09:49 Dose: 2 tab Cyclobenzaprine HCl (Flexeril -) 5 mg PO DAILY [facility] Last Admin: 11/19/17 09:39 Dose: 5 mg Diphenhydramine HCl (Benadryl Injection -) 12.5 mg IVPUSH ONCE PRN PRN Reason: FOR ITCHING Docusate Sodium (Colace -) 100 mg PO TID [facility] Last Admin: 11/19/17 13:52 Dose: Not Given Gabapentin (Neurontin -) 100 mg PO TID [facility] Last Admin: 11/19/17 13:52 Dose: 100 mg Sodium Chloride (1/2 Normal Saline) 1,000 mls @ 75 mls/hr IV ASDIR [facility] Last Admin: 11/19/17 06:46 Dose: 75 mls/hr Ondansetron HCl (Zofran Injection) 4 mg IVPUSH Q4H PRN PRN Reason: NAUSEA AND/OR VOMITING Ondansetron HCl (Zofran Odt -) 4 mg SL Q6H PRN PRN Reason: NAUSEA AND/OR VOMITING Oxycodone HCl (Oxycontin -) 10 mg PO BID [facility] Last Admin: 11/19/17 09:49 Dose: 10 mg Oxycodone HCl (Roxicodone -) 10 mg PO Q4H PRN PRN Reason: PAIN LEVEL 6-10 Pantoprazole Sodium (Protonix -) 40 mg PO DAILY [facility] Last Admin: 11/19/17 09:50 Dose: 40 mg Polyethylene Glycol (Miralax (For Daily Use) -) 17 gm PO TID LIBBY Promethazine HCl (Phenergan Injection -) 12.5 mg IVPB Q6H PRN PRN Reason: NAUSEA AND/OR VOMITING - Objective Vital Signs: Vital Signs Temperature 99.2 F 11/19/17 16:58 Pulse Rate 94 H 11/19/17 16:58 Respiratory Rate 20 11/19/17 16:58 Blood Pressure 144/93 11/19/17 16:58 O2 Sat by Pulse Oximetry (%) 99 11/18/17 21:00 Constitutional: Yes: Calm Eyes: Yes: Conjunctiva Clear HENT: Yes: Atraumatic Cardiovascular: Yes: S1, S2 Respiratory: Yes: CTA Bilaterally Gastrointestinal: Yes: Soft Genitourinary: Yes: WNL Musculoskeletal: Yes: Back Pain Extremities: Yes: WNL Edema: No Neurological: Yes: Oriented Psychiatric: Yes: Oriented Labs: CBC, BMP 11/19/17 06:20 11/19/17 06:20 Problem List - Problems (1) JEREMIE (acute kidney injury) Code(s): N17.9 - ACUTE KIDNEY FAILURE, UNSPECIFIED (2) Hyperkalemia Code(s): E87.5 - HYPERKALEMIA (3) Rhabdomyolysis Code(s): M62.82 - RHABDOMYOLYSIS Assessment/Plan Current Medications Generic Name Dose Route Start Last Admin Trade Name Miloq PRN Reason Stop Dose Admin Acetaminophen 650 mg 11/15/17 01:58 11/17/17 03:10 Tylenol - PO 650 mg Q6H PRN Administration FEVER Amlodipine Besylate 10 mg 11/18/17 12:30 11/19/17 09:49 Norvasc - PO 10 mg DAILY LIBBY Administration Bacitracin/Polymyxin B Sulfate 1 applic 11/17/17 22:00 11/19/17 09:50 Polysporin Ointment - TP 1 applic BID LIBBY Administration Calcium Carbonate/Cholecalciferol 2 tab 11/13/17 12:30 11/19/17 09:49 Os-Georges 500+D - PO 2 tab DAILY LIBBY Administration Cyclobenzaprine HCl 5 mg 11/14/17 11:30 11/19/17 09:39 Flexeril - PO 5 mg DAILY LIBBY Administration Diphenhydramine HCl 12.5 mg 11/16/17 15:26 Benadryl Injection - IVPUSH ONCE PRN FOR ITCHING Docusate Sodium 100 mg 11/16/17 14:00 11/19/17 13:52 Colace - PO Not Given TID LIBBY Gabapentin 100 mg 11/15/17 22:15 11/19/17 13:52 Neurontin - PO 100 mg TID LIBBY Administration Sodium Chloride 1,000 mls @ 75 mls/hr 11/17/17 16:45 11/19/17 06:46 1/2 Normal Saline IV 75 mls/hr ASDIR LIBBY Administration Ondansetron HCl 4 mg 11/16/17 15:26 Zofran Injection IVPUSH Q4H PRN NAUSEA AND/OR VOMITING Ondansetron HCl 4 mg 11/16/17 15:29 Zofran Odt - SL Q6H PRN NAUSEA AND/OR VOMITING Oxycodone HCl 10 mg 11/18/17 12:45 11/19/17 09:49 Oxycontin - PO 10 mg BID LIBBY Administration Oxycodone HCl 10 mg 11/19/17 15:52 Roxicodone - PO Q4H PRN PAIN LEVEL 6-10 Pantoprazole Sodium 40 mg 11/16/17 15:30 11/19/17 09:50 Protonix - PO 40 mg DAILY LIBBY Administration Polyethylene Glycol 17 gm 11/19/17 22:00 Miralax (For Daily Use) - PO TID [facility] Promethazine HCl 12.5 mg 11/16/17 15:26 Phenergan Injection - IVPB Q6H PRN NAUSEA AND/OR VOMITING Laboratory Tests 11/13/17 11/16/17 11/19/17 17:30 01:50 06:20 Creatinine 1.9 H Creatine Kinase 216 Urine Protein Negative Urine Blood Negative LAURENCE M-Yassine Not observed ZA Screen Negative c-ANCA <1:20 Proteinase 3 (PR3) <3.5 p-ANCA <1:20 Atypical p-ANCA <1:20 Myeloperoxidase Ab <9.0 Double Strand DNA Ab <1 Glomerular Base Memb Ab 2 Hepatitis A Ab Total Negative Hep Bs Antigen Negative Hep Bs Antibody Non reactive Hep B Core Total Ab Negative Impression 1. JEREMIE 2. hyperkalemia 3. hx HTN 4. rhabdo 5. s/p laminectomy 6. anemia Plan - cpk normalized - renal function is improving - cont fluids - serologies negative so far - pt will follow with me in the office - possible kidney biopsy if he does not fully recover, he must also first reciver from his back surgery - will follow Dr Ward
--- NOTE | 2017-11-19 18:53 | PN ---
Teaching Attending Note Name of Resident: Arnel Nettles ATTENDING PHYSICIAN STATEMENT I saw and evaluated the patient. I reviewed the resident's note and discussed the case with the resident. I agree with the resident's findings and plan as documented. SUBJECTIVE: No fever or chills. back pain is better controlled on oxycontin . and PRN breakthrough meds no new weakness. able to ambulate with walker OBJECTIVE: NAD Cv: RRR lungs: CTAB Abd: soft, ND, NL BS. NT. NL BS MS: dressing over the T, and L spine. ext: no erythema or edema or tenderness Neuro : strength 3/5 in R hip flexion and 4/5 R hip flexion, 5/5 in R knee flexion and extension , 5/5 L knee flexion and extension . 5/5 in both plantar flexion and dorsiflexion NL sensation in LE . 2+ knee jerk b/l ASSESSMENT AND PLAN: 47 y/o man with h/o back pain who presented for laminectomy and fusion 1- Fever: resolved. no evidence of infection or DVT . 2- Lower back pain s/p Laminectomies and fusion . -DC IV morphine . increase oxycodone to 10 . cont oxycontin 10 BID 3- JEREMIE , 2/2 rhabdo and possible hypoperfusion during sx ( BL 1.1 ) - renal function cont to improve - cont IVF till tomorrow - further w/u as out pt if needed. 3- Rhabdo : - cont IVF 4- Anemia , likely Acute blood loss anemia. Hb is stable after transfusion and removal of EMI drainage - LDH slightly evelated( non specific ). haptoglobin is elevated , no evidence of hemolysis - SPEP with no M spike . - OB Neg 5- Ileus : due to immobility and pain meds . resolved . - bowel regimen 6- HTN: - cont norvasc 7- SCDs, dispo : possible dc to rehab tomorrow , if Cr cont to improve. po hydration after dc has a bed at SNF tomorrow
[2017-11-19] MEDS: ACETAMINOPHEN 325 MG TABLET (FP) PO PRN (21:31)
[2017-11-20] MEDS: SODIUM CHLORIDE 0.45% 1,000 ML IV SCH (01:30)
[2017-11-20] MEDS: DOCUSATE SODIUM 100 MG CAPSULE (FP) PO SCH (06:21)
[2017-11-20] MEDS: POLYETHYLENE GLYCOL 3350 119 GM BTL PO SCH (06:21)
[2017-11-20] MEDS: GABAPENTIN 100 MG CAPSULE (FP) PO SCH (06:21)
[2017-11-20] MEDS: ACETAMINOPHEN 325 MG TABLET (FP) PO PRN (06:22)
[2017-11-20 07:40] LABS: BASO % 0.9 % (0-2.0); EOS % 4.5 % (0-4.5); HEMATOCRIT 25.6 % (35.4-49); HEMOGLOBIN 8.4 GM/dL (11.7-16.9); LYMPH % 15.1 % (8-40); MCH 28.4 pg (25.7-33.7); MCHC 32.8 g/dl (32.0-35.9); MEAN CELL VOLUME 86.8 fl (80-96); MEAN PLT VOLUME 6.6 fl (7.5-11.1); MONO % 8.3 % (3.8-10.2); NEUT % 71.2 % (42.8-82.8); PLATELET COUNT 473 K/MM3 (134-434); RBC 2.95 M/mm3 (4.00-5.60); RDW 14.1 % (11.9-15.9); WHITE BLOOD COUNT 14.4 K/mm3 (4.0-10.0)
[2017-11-20 08:10] LABS: ANION GAP 9 (8-16); BLOOD UREA NITROGEN 12 mg/dL (7-18); CALCIUM 8.1 mg/dL (8.5-10.1); CHLORIDE 103 mmol/L (98-107); CO2 28 mmol/L (21-32); CREATININE 1.9 mg/dL (0.7-1.3); GLUCOSE,RANDOM 93 mg/dL (74-106); POTASSIUM 4.1 mmol/L (3.5-5.1); SODIUM 140 mmol/L (136-145)
--- NOTE | 2017-11-20 09:08 | DS ---
Physical Exam: Selected Entries 11/13/17 11/13/17 11/14/17 02:00 14:00 22:00 Temperature 100.3 F H 101.3 F H Pulse Rate 109 H Blood Pressure O2 Sat by Pulse Oximetry (%) Oxygen Delivery Method 11/15/17 11/15/17 11/15/17 00:00 02:00 02:10 Temperature 100.3 F H 101.3 F H 101.3 F H Pulse Rate Blood Pressure O2 Sat by Pulse Oximetry (%) Oxygen Delivery Method 11/16/17 11/16/17 11/19/17 06:00 10:00 21:00 Temperature Pulse Rate 104 H Blood Pressure 159/98 169/90 O2 Sat by Pulse 99 Oximetry (%) Oxygen Delivery Room Air Method 11/20/17 06:00 Temperature 98 F Pulse Rate 112 H Blood Pressure 123/94 O2 Sat by Pulse Oximetry (%) Oxygen Delivery Method Laboratory Tests 11/11/17 11/12/17 11/12/17 20:40 05:55 15:15 WBC 16.7 H Hgb 8.8 L Hct Plt Count Haptoglobin ABG pH 7.36 ABG pCO2 at Pt Temp 33.9 L ABG pO2 at Pt Temp 544.0 H* ABG HCO3 18.8 L ABG O2 Sat (Measured) 100.0 H* Sodium Potassium Chloride Carbon Dioxide Anion Gap BUN Creatinine Random Glucose Hemoglobin A1c % Iron TIBC Iron Saturation Ferritin LD Total Creatine Kinase 6011 H Troponin I Urine pH Ur Specific [place] Urine Protein Urine Glucose (UA) Urine Ketones Urine Blood Urine Nitrite Urine Bilirubin Urine Urobilinogen Ur Leukocyte Esterase Stool Occult Blood LAURENCE M-Yassine ZA Screen c-ANCA Proteinase 3 (PR3) p-ANCA Atypical p-ANCA Myeloperoxidase Ab Glomerular Base Memb Ab Hepatitis A Ab Total Hep Bs Antigen Hep Bs Antibody Hep B Core Total Ab HCV Quantitation 11/13/17 11/13/17 11/13/17 06:00 06:05 06:05 WBC 14.0 H Hgb 7.0 L D Hct Plt Count Haptoglobin ABG pH ABG pCO2 at Pt Temp ABG pO2 at Pt Temp ABG HCO3 ABG O2 Sat (Measured) Sodium Potassium Chloride Carbon Dioxide Anion Gap BUN Creatinine Random Glucose Hemoglobin A1c % 5.4 Iron TIBC Iron Saturation Ferritin 551.857 H LD Total Creatine Kinase 3046 H Troponin I Urine pH Ur Specific [place] Urine Protein Urine Glucose (UA) Urine Ketones Urine Blood Urine Nitrite Urine Bilirubin Urine Urobilinogen Ur Leukocyte Esterase Stool Occult Blood LAURENCE M-Yassine ZA Screen c-ANCA Proteinase 3 (PR3) p-ANCA Atypical p-ANCA Myeloperoxidase Ab Glomerular Base Memb Ab Hepatitis A Ab Total Hep Bs Antigen Hep Bs Antibody Hep B Core Total Ab HCV Quantitation 11/13/17 11/13/17 11/13/17 17:30 17:30 20:00 WBC 11.1 H Hgb 7.1 L Hct 21.3 L Plt Count Haptoglobin ABG pH ABG pCO2 at Pt Temp ABG pO2 at Pt Temp ABG HCO3 ABG O2 Sat (Measured) Sodium Potassium Chloride Carbon Dioxide Anion Gap BUN Creatinine Random Glucose Hemoglobin A1c % Iron 8 L TIBC 116 L Iron Saturation 7 L Ferritin LD Total Creatine Kinase Troponin I Urine pH Ur Specific [place] Urine Protein Urine Glucose (UA) Urine Ketones Urine Blood Urine Nitrite Urine Bilirubin Urine Urobilinogen Ur Leukocyte Esterase Stool Occult Blood LAURENCE M-Yassine Not observed ZA Screen Negative c-ANCA <1:20 Proteinase 3 (PR3) <3.5 p-ANCA <1:20 Atypical p-ANCA <1:20 Myeloperoxidase Ab <9.0 Glomerular Base Memb Ab 2 Hepatitis A Ab Total Negative Hep Bs Antigen Negative Hep Bs Antibody Non reactive Hep B Core Total Ab Negative HCV Quantitation Hcv not detected 11/14/17 11/14/17 11/14/17 06:10 06:10 15:30 WBC 9.2 Hgb 7.3 L 7.4 L Hct Plt Count Haptoglobin ABG pH ABG pCO2 at Pt Temp ABG pO2 at Pt Temp ABG HCO3 ABG O2 Sat (Measured) Sodium Potassium Chloride Carbon Dioxide Anion Gap BUN Creatinine Random Glucose Hemoglobin A1c % Iron TIBC Iron Saturation Ferritin LD Total Creatine Kinase 1714 H Troponin I Urine pH Ur Specific [place] Urine Protein Urine Glucose (UA) Urine Ketones Urine Blood Urine Nitrite Urine Bilirubin Urine Urobilinogen Ur Leukocyte Esterase Stool Occult Blood LAURENCE M-Yassine ZA Screen c-ANCA Proteinase 3 (PR3) p-ANCA Atypical p-ANCA Myeloperoxidase Ab Glomerular Base Memb Ab Hepatitis A Ab Total Hep Bs Antigen Hep Bs Antibody Hep B Core Total Ab HCV Quantitation 11/15/17 11/15/17 11/15/17 06:30 06:30 17:56 WBC Hgb 6.8 L* Hct 19.8 L Plt Count Haptoglobin ABG pH ABG pCO2 at Pt Temp ABG pO2 at Pt Temp ABG HCO3 ABG O2 Sat (Measured) Sodium Potassium Chloride Carbon Dioxide Anion Gap BUN Creatinine Random Glucose Hemoglobin A1c % Iron TIBC Iron Saturation Ferritin LD Total Creatine Kinase 1203 H 1004 H Troponin I 0.94 H* 0.65 H* D Urine pH Ur Specific [place] Urine Protein Urine Glucose (UA) Urine Ketones Urine Blood Urine Nitrite Urine Bilirubin Urine Urobilinogen Ur Leukocyte Esterase Stool Occult Blood LAURENCE M-Yassine ZA Screen c-ANCA Proteinase 3 (PR3) p-ANCA Atypical p-ANCA Myeloperoxidase Ab Glomerular Base Memb Ab Hepatitis A Ab Total Hep Bs Antigen Hep Bs Antibody Hep B Core Total Ab HCV Quantitation 11/16/17 11/17/17 11/17/17 01:50 06:00 06:00 WBC Hgb 6.8 L* Hct 19.4 L Plt Count Haptoglobin ABG pH ABG pCO2 at Pt Temp ABG pO2 at Pt Temp ABG HCO3 ABG O2 Sat (Measured) Sodium Potassium Chloride Carbon Dioxide Anion Gap BUN Creatinine Random Glucose Hemoglobin A1c % Iron TIBC Iron Saturation Ferritin LD Total 370 H Creatine Kinase Troponin I 0.28 H D Urine pH 7.0 Ur Specific [place] 1.004 Urine Protein Negative Urine Glucose (UA) Negative Urine Ketones Negative Urine Blood Negative Urine Nitrite Negative Urine Bilirubin Negative Urine Urobilinogen Negative Ur Leukocyte Esterase Negative Stool Occult Blood LAURENCE M-Yassine ZA Screen c-ANCA Proteinase 3 (PR3) p-ANCA Atypical p-ANCA Myeloperoxidase Ab Glomerular Base Memb Ab Hepatitis A Ab Total Hep Bs Antigen Hep Bs Antibody Hep B Core Total Ab HCV Quantitation 11/17/17 11/18/17 11/19/17 08:15 23:01 06:20 WBC Hgb Hct Plt Count Haptoglobin 221 H ABG pH ABG pCO2 at Pt Temp ABG pO2 at Pt Temp ABG HCO3 ABG O2 Sat (Measured) Sodium Potassium Chloride Carbon Dioxide Anion Gap BUN Creatinine Random Glucose Hemoglobin A1c % Iron TIBC Iron Saturation Ferritin LD Total Creatine Kinase 216 Troponin I Urine pH Ur Specific [place] Urine Protein Urine Glucose (UA) Urine Ketones Urine Blood Urine Nitrite Urine Bilirubin Urine Urobilinogen Ur Leukocyte Esterase Stool Occult Blood Negative LAURENCE M-Yassine ZA Screen c-ANCA Proteinase 3 (PR3) p-ANCA Atypical p-ANCA Myeloperoxidase Ab Glomerular Base Memb Ab Hepatitis A Ab Total Hep Bs Antigen Hep Bs Antibody Hep B Core Total Ab HCV Quantitation 11/20/17 11/20/17 06:20 06:20 WBC 14.4 H Hgb 8.4 L Hct 25.6 L Plt Count 473 H Haptoglobin ABG pH ABG pCO2 at Pt Temp ABG pO2 at Pt Temp ABG HCO3 ABG O2 Sat (Measured) Sodium 140 Potassium 4.1 Chloride 103 Carbon Dioxide 28 Anion Gap 9 BUN 12 Creatinine 1.9 H Random Glucose 93 Hemoglobin A1c % Iron TIBC Iron Saturation Ferritin LD Total Creatine Kinase Troponin I Urine pH Ur Specific [place] Urine Protein Urine Glucose (UA) Urine Ketones Urine Blood Urine Nitrite Urine Bilirubin Urine Urobilinogen Ur Leukocyte Esterase Stool Occult Blood LAURENCE M-Yassine ZA Screen c-ANCA Proteinase 3 (PR3) p-ANCA Atypical p-ANCA Myeloperoxidase Ab Glomerular Base Memb Ab Hepatitis A Ab Total Hep Bs Antigen Hep Bs Antibody Hep B Core Total Ab HCV Quantitation Microbiology 11/15/17 06:30 Urine - Urine Clean Catch Urine Culture - Final NO GROWTH OBTAINED 11/15/17 04:00 Blood - Peripheral Venous Blood Culture - Final NO GROWTH AFTER 5 DAYS INCUBATION 11/15/17 04:00 Blood - Peripheral Venous Blood Culture - Final NO GROWTH AFTER 5 DAYS INCUBATION Bladder u/s- both kidneys appear normal cxr- no acute disease u/s abdomen- Mild heterogeneous echotexture of liver Abd xray- ileus vs sbo HOSPITAL COURSE: Date of Admission:11/11/17 Date of Discharge: 11/20/17 47M with history of HTN presented for elective surgery and admitted after having L2-S1 laminectomy, L3-4 L4-5 L5-S1 PLIF, T8-S1 PISF. Patient here with few acute issues: 1. Post op Fever- patient found to have no evidence of infection or dvt. Fever resolved 2. 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 Patient's pain improved. He tolerated physical therapy and was able to walk around. Patient dc on oxycontin 10 mg bid and oxycodone 10 q4 prn to [facility] for rehabilitation 3. JEREMIE 2/2 to rhabdomyolysis- Patient with elevated CK to 6000. Kidney function elevated to 4.0. Patient improved over stay with IVF. Pt will f/u with Dr. Ward outpatient for possible renal biopsy. 4. Acute blood loss anemia- Patient hgb was low after surgery, EMI drain draining blood. He received multiple units of blood. No signs of hemolysis or myeloma. He was stable on discharge. Stool occlut blood negative 5. HTN- Patient started on norvasc in the hospital. Tolerated well and will be dc on norvasc 10 mg Minutes to complete discharge: 45 Discharge Summary Reason For Visit: OTHER SECONDARY KYPHOSIS, THORACOLUMBAR REGION Current Active Problems JEREMIE (acute kidney injury) (Acute) Hyperkalemia (Acute) Rhabdomyolysis (Acute) S/P spinal surgery (Acute) Condition: Good - Instructions Diet, Activity, Other Instructions: You underwent the following surgeries on 11/[address] Maki: 1. L2-S1 laminectomies. 2. L3-4, L4-5, L5-S1 PLIF. 3. T8-S1 PISF. You were also treated for Acute Kidney Injury. You are being transferred to [facility] for rehabilitation. Follow-up: - Dr. Maki and your primary care physician within one week of discharge for post-hospital evaluation. - Sld Educational Aide to evaluate kidney function after discharge, contact information for Dr. Ward has been provided for you, please call to make an appointment in 1-2 weeks. Wound Care: Please call Dr. Maki's office for wound care instructions. Keep the dressing clean and dry until you speak with his office. Medications: Continue your home medications as prescribed. You are being started on Norvasc for your elevated blood pressure, take it when your pressure is >130/80 and have your pressure checked at your doctors office to see if you need to continue this medications. Recommendations: Please take miralax and colace daily to maintain your bowel regimen while on pain medications. Drink plenty of water to stay hydrated and for your kidneys. If you develop chest pain, trouble breathing, discharge from your incision site , fevers, worsening headaches, no bowel movements for a prolonged time, abdominal distention or any other new symptoms please return to the hospital. Referrals: Maye Ward MD [Staff Physician] - Dameon Maki MD [Staff Physician] - Rojas Maki MD [Staff Physician] - Disposition: [facility] FACILITY - Home Medications Comprehensive Discharge Medication List: Ambulatory Orders Chlorzoxazone [Lorzone] 750 mg PO DAILY 11/08/17 Cyclobenzaprine HCl 10 mg PO PRN PRN 11/08/17 Omeprazole 20 mg PO DAILY 11/08/17 Acetaminophen [Tylenol .Regular Strength -] 650 mg PO Q6H PRN tablet 11/20/17 Amlodipine Besylate [Norvasc -] 10 mg PO DAILY tablet 11/20/17 Docusate Sodium [Colace -] 100 mg PO TID capsule 11/20/17 Gabapentin [Neurontin -] 100 mg PO TID capsule 11/20/17 Ondansetron [Zofran Odt -] 4 mg SL Q6H PRN tab.rapdis 11/20/17 Pantoprazole Sodium [Protonix -] 40 mg PO DAILY tablet.ec 11/20/17 Polyethylene Glycol 3350 [Miralax 119 gm Btl -] 17 gm PO TID bottle 11/20/17 oxyCODONE HCL [Roxicodone -] 10 mg PO Q4H PRN tablet MDD na 11/20/17 oxyCODONE SR [Oxycontin] 10 mg PO BID tab.er.12h MDD na 11/20/17 This patient is new to me today: No Emergency Visit: Yes ED Registration Date: 11/11/17 Care time: The patient presented to the Emergency Department on the above date and was hospitalized for further evaluation of their emergent condition. Critical Care patient: No - Discharge Referral Referred to [facility] Med [facility].: No
[2017-11-20] MEDS ORDERED: PT OWN MED DRAWER 7, Y5N ONE (09:11)
[2017-11-20] MEDS: CYCLOBENZAPRINE HCL 10 MG TABLET (FP) PO SCH (09:14)
[2017-11-20] MEDS: CALCIUM 500MG/VIT-D 200 UNITS COMBO TABLET (FP) PO SCH (09:16)
[2017-11-20] MEDS: amLODIPine BESYLATE 10 MG TABLET (FP) PO SCH (09:16)
[2017-11-20] MEDS: oxyCODONE HCL 10 MG SUSTAINED ACTING TABLET PO SCH (09:17)
[2017-11-20] MEDS: PANTOPRAZOLE 40 MG TABLET (FP) PO SCH (09:18)
[2017-11-20] MEDS: BACITRACIN/POLYMYXIN B SULFATE 15 GM TUBE TP SCH (09:19)
[2017-11-20 10:45] VITALS: BP 117/70; PULSE 91; TEMP 99.1
--- NOTE | 2017-11-20 12:48 | PN ---
Teaching Attending Note Name of Resident: Arnel Nettles ATTENDING PHYSICIAN STATEMENT I saw and evaluated the patient. I reviewed the resident's note and discussed the case with the resident. I agree with the resident's findings and plan as documented. SUBJECTIVE: OBJECTIVE: Vital Signs Period Temp Pulse Resp BP Sys/Yo Pulse Ox Last 24 Hr 97.8 F-99.2 F 91-112 20-20 117-144/70-94 99 Laboratory Results - last 24 hr 11/13/17 11/15/17 11/20/17 17:30 09:50 06:20 WBC 14.4 H RBC 2.95 L Hgb 8.4 L Hct 25.6 L MCV 86.8 MCH 28.4 MCHC 32.8 RDW 14.1 Plt Count 473 H MPV 6.6 L Neutrophils % 71.2 Lymphocytes % 15.1 Monocytes % 8.3 Eosinophils % 4.5 Basophils % 0.9 Sodium Potassium Chloride Carbon Dioxide Anion Gap BUN Creatinine Random Glucose Calcium Glomerular Base Memb Ab 2 Blood Type O NEGATIVE Antibody Screen Negative Crossmatch See Detail 11/20/17 06:20 WBC RBC Hgb Hct MCV MCH MCHC RDW Plt Count MPV Neutrophils % Lymphocytes % Monocytes % Eosinophils % Basophils % Sodium 140 Potassium 4.1 Chloride 103 Carbon Dioxide 28 Anion Gap 9 BUN 12 Creatinine 1.9 H Random Glucose 93 Calcium 8.1 L Glomerular Base Memb Ab Blood Type Antibody Screen Crossmatch Current Medications Generic Name Dose Route Start Last Admin Trade Name Freq PRN Reason Stop Dose Admin Acetaminophen 650 mg 11/15/17 01:58 11/20/17 06:22 Tylenol - PO 650 mg Q6H PRN Administration FEVER Amlodipine Besylate 10 mg 11/18/17 12:30 11/20/17 09:16 Norvasc - PO 10 mg DAILY LIBBY Administration Bacitracin/Polymyxin B Sulfate 1 applic 11/17/17 22:00 11/20/17 09:19 Polysporin Ointment - TP 1 applic BID LIBBY Administration Calcium Carbonate/Cholecalciferol 2 tab 11/13/17 12:30 11/20/17 09:16 Os-Georges 500+D - PO 2 tab DAILY LIBBY Administration Cyclobenzaprine HCl 5 mg 11/14/17 11:30 11/20/17 09:14 Flexeril - PO 5 mg DAILY LIBBY Administration Diphenhydramine HCl 12.5 mg 11/16/17 15:26 Benadryl Injection - IVPUSH ONCE PRN FOR ITCHING Docusate Sodium 100 mg 11/16/17 14:00 11/20/17 06:21 Colace - PO 100 mg TID LIBBY Administration Gabapentin 100 mg 11/15/17 22:15 11/20/17 06:21 Neurontin - PO 100 mg TID LIBBY Administration Ondansetron HCl 4 mg 11/16/17 15:26 Zofran Injection IVPUSH Q4H PRN NAUSEA AND/OR VOMITING Ondansetron HCl 4 mg 11/16/17 15:29 Zofran Odt - SL Q6H PRN NAUSEA AND/OR VOMITING Oxycodone HCl 10 mg 11/18/17 12:45 11/20/17 09:17 Oxycontin - PO 10 mg BID LIBBY Administration Oxycodone HCl 10 mg 11/19/17 15:52 11/20/17 06:23 Roxicodone - PO 10 mg Q4H PRN Administration PAIN LEVEL 6-10 Pantoprazole Sodium 40 mg 11/16/17 15:30 11/20/17 09:18 Protonix - PO 40 mg DAILY LIBBY Administration Polyethylene Glycol 17 gm 11/19/17 22:00 11/20/17 06:21 Miralax (For Daily Use) - PO 17 grams TID LIBBY Administration Promethazine HCl 12.5 mg 11/16/17 15:26 Phenergan Injection - IVPB Q6H PRN NAUSEA AND/OR VOMITING ASSESSMENT AND PLAN: 47 y/o man with h/o back pain who presented for laminectomy and fusion 1- Fever: resolved. no evidence of infection or DVT . 2- Lower back pain s/p Laminectomies and fusion . -DC IV morphine . increase oxycodone to 10 . cont oxycontin 10 BID 3- JEREMIE , 2/2 rhabdo and possible hypoperfusion during sx ( BL 1.1 ) - renal function cont to improve - cont IVF till tomorrow - further w/u as out pt if needed. 3- Rhabdo : - cont IVF 4- Anemia , likely Acute blood loss anemia. Hb is stable after transfusion and removal of EMI drainage - LDH slightly evelated( non specific ). haptoglobin is elevated , no evidence of hemolysis - SPEP with no M spike . - OB Neg 5- Ileus : due to immobility and pain meds . resolved . - bowel regimen 6- HTN: - cont norvasc 7- SCDs, dispo : possible dc to rehab tomorrow , if Cr cont to improve. po hydration after dc has a bed at [facility] tomorrow
--- NOTE | 2017-11-20 13:11 | PN ---
Progress Note, Physician History of Present Illness: Pt seen and examined at bedside. He is awake and alert. He is going to [facility] for rehab today. - Current Medication List Current Medications: Active Medications Acetaminophen (Tylenol -) 650 mg PO Q6H PRN PRN Reason: FEVER Last Admin: 11/20/17 06:22 Dose: 650 mg Amlodipine Besylate (Norvasc -) 10 mg PO DAILY [facility] Last Admin: 11/20/17 09:16 Dose: 10 mg Bacitracin/Polymyxin B Sulfate (Polysporin Ointment -) 1 applic TP BID [facility] Last Admin: 11/20/17 09:19 Dose: 1 applic Calcium Carbonate/Cholecalciferol (Os-Georges 500+D -) 2 tab PO DAILY [facility] Last Admin: 11/20/17 09:16 Dose: 2 tab Cyclobenzaprine HCl (Flexeril -) 5 mg PO DAILY [facility] Last Admin: 11/20/17 09:14 Dose: 5 mg Diphenhydramine HCl (Benadryl Injection -) 12.5 mg IVPUSH ONCE PRN PRN Reason: FOR ITCHING Docusate Sodium (Colace -) 100 mg PO TID [facility] Last Admin: 11/20/17 06:21 Dose: 100 mg Gabapentin (Neurontin -) 100 mg PO TID [facility] Last Admin: 11/20/17 06:21 Dose: 100 mg Ondansetron HCl (Zofran Injection) 4 mg IVPUSH Q4H PRN PRN Reason: NAUSEA AND/OR VOMITING Ondansetron HCl (Zofran Odt -) 4 mg SL Q6H PRN PRN Reason: NAUSEA AND/OR VOMITING Oxycodone HCl (Oxycontin -) 10 mg PO BID [facility] Last Admin: 11/20/17 09:17 Dose: 10 mg Oxycodone HCl (Roxicodone -) 10 mg PO Q4H PRN PRN Reason: PAIN LEVEL 6-10 Last Admin: 11/20/17 06:23 Dose: 10 mg Pantoprazole Sodium (Protonix -) 40 mg PO DAILY [facility] Last Admin: 11/20/17 09:18 Dose: 40 mg Polyethylene Glycol (Miralax (For Daily Use) -) 17 gm PO TID [facility] Last Admin: 11/20/17 06:21 Dose: 17 grams Promethazine HCl (Phenergan Injection -) 12.5 mg IVPB Q6H PRN PRN Reason: NAUSEA AND/OR VOMITING - Objective Vital Signs: Vital Signs Temperature 99.1 F 11/20/17 08:15 Pulse Rate 91 H 11/20/17 08:15 Respiratory Rate 20 11/20/17 08:15 Blood Pressure 117/70 11/20/17 08:15 O2 Sat by Pulse Oximetry (%) 99 11/19/17 21:00 Constitutional: Yes: Calm Eyes: Yes: Conjunctiva Clear HENT: Yes: Atraumatic Neck: Yes: Supple Cardiovascular: Yes: S1, S2 Respiratory: Yes: CTA Bilaterally Gastrointestinal: Yes: Normal Bowel Sounds, Soft Genitourinary: Yes: WNL Musculoskeletal: Yes: Back Pain Edema: No Neurological: Yes: Oriented Psychiatric: Yes: Oriented Labs: CBC, BMP 11/20/17 06:20 11/20/17 06:20 Problem List - Problems (1) JEREMIE (acute kidney injury) Code(s): N17.9 - ACUTE KIDNEY FAILURE, UNSPECIFIED (2) Hyperkalemia Code(s): E87.5 - HYPERKALEMIA (3) Rhabdomyolysis Code(s): M62.82 - RHABDOMYOLYSIS Assessment/Plan Current Medications Generic Name Dose Route Start Last Admin Trade Name Freq PRN Reason Stop Dose Admin Acetaminophen 650 mg 11/15/17 01:58 11/20/17 06:22 Tylenol - PO 650 mg Q6H PRN Administration FEVER Amlodipine Besylate 10 mg 11/18/17 12:30 11/20/17 09:16 Norvasc - PO 10 mg DAILY [facility] Administration Bacitracin/Polymyxin B Sulfate 1 applic 11/17/17 22:00 11/20/17 09:19 Polysporin Ointment - TP 1 applic BID [facility] Administration Calcium Carbonate/Cholecalciferol 2 tab 11/13/17 12:30 11/20/17 09:16 Os-Georges 500+D - PO 2 tab DAILY [facility] Administration Cyclobenzaprine HCl 5 mg 11/14/17 11:30 11/20/17 09:14 Flexeril - PO 5 mg DAILY [facility] Administration Diphenhydramine HCl 12.5 mg 11/16/17 15:26 Benadryl Injection - IVPUSH ONCE PRN FOR ITCHING Docusate Sodium 100 mg 11/16/17 14:00 11/20/17 06:21 Colace - PO 100 mg TID [facility] Administration Gabapentin 100 mg 11/15/17 22:15 11/20/17 06:21 Neurontin - PO 100 mg TID [facility] Administration Ondansetron HCl 4 mg 11/16/17 15:26 Zofran Injection IVPUSH Q4H PRN NAUSEA AND/OR VOMITING Ondansetron HCl 4 mg 11/16/17 15:29 Zofran Odt - SL Q6H PRN NAUSEA AND/OR VOMITING Oxycodone HCl 10 mg 11/18/17 12:45 11/20/17 09:17 Oxycontin - PO 10 mg BID [facility] Administration Oxycodone HCl 10 mg 11/19/17 15:52 11/20/17 06:23 Roxicodone - PO 10 mg Q4H PRN Administration PAIN LEVEL 6-10 Pantoprazole Sodium 40 mg 11/16/17 15:30 11/20/17 09:18 Protonix - PO 40 mg DAILY [facility] Administration Polyethylene Glycol 17 gm 11/19/17 22:00 11/20/17 06:21 Miralax (For Daily Use) - PO 17 grams TID [facility] Administration Promethazine HCl 12.5 mg 11/16/17 15:26 Phenergan Injection - IVPB Q6H PRN NAUSEA AND/OR VOMITING Impression 1. JEREMIE 2. hyperkalemia 3. hx HTN 4. rhabdo 5. s/p laminectomy 6. anemia Plan - cont to monitor renal function - pt going to [facility] today - he will follow with me as outpt - we discussed possible kidney biopsy after his back is healed - bmp should be checked in rehab - serologies negative so far - will follow Dr Ward
== END 2017-11-20 13:14 | DRG 304 ==
LOC: JSAMEDAYSX 07:01 → EDSTATUS 12:30 → JICU 11-12 00:14 → J8W 11-14 13:44
PROVIDERS: ADMIT Orthopaedic Surgery Orthopaedic Surgery of the Spine; ATTEND Internal Medicine
PROC: 0SG30AJ Fusion of Lumbosacral Joint with Interbody Fusion Device, Posterior Approach, Anterior Column, Open Approach (ICD-10-PCS; principal; 2017-11-11 08:00)
PROC: 30233N1 Transfusion of Nonautologous Red Blood Cells into Peripheral Vein, Percutaneous Approach (ICD-10-PCS; 2017-11-13)
DX: M48.061 Spinal stenosis, lumbar region without neurogenic claudication (principal); M12.88 Other specific arthropathies, not elsewhere classified, other specified site; M40.209 Unspecified kyphosis, site unspecified; I10 Essential (primary) hypertension; F05 Delirium due to known physiological condition; R06.6 Hiccough; G89.18 Other acute postprocedural pain; D62 Acute posthemorrhagic anemia; E87.5 Hyperkalemia; M62.82 Rhabdomyolysis; N17.9 Acute kidney failure, unspecified; M47.895 Other spondylosis, thoracolumbar region; M54.16 Radiculopathy, lumbar region; R50.82 Postprocedural fever; R10.9 Unspecified abdominal pain; R12 Heartburn; K56.7 Ileus, unspecified; K21.9 Gastro-esophageal reflux disease without esophagitis
CPT/HCPCS: 36415; 36430; 36600; 71045-TC-FY; 74018-TC-FY; 76000-TC-FY; 76705-TC; 76775-TC; 76856-TC; 80048; 80053; 80076; 81003; 81015; 82272; 82436; 82550; 82553; 82570; 82728; 82803; 83010; 83036; 83516; 83520; 83540; 83550; 83605; 83615; 83735; 84100; 84132; 84133; 84155; 84165; 84300; 84484; 85025; 85027; 86038; 86225; 86256; 86704; 86706; 86708; 86850; 86891; 86900; 86901; 86922; 87040; 87086; 87340; 87522; 88304-TC; 93005; 93010; 93970-TC; 94002; 94760; 97116-GP; 97162-GP; J0131; J1644; J7030; P9038; P9058

== ENCOUNTER 2021-05-08 04:17 | Inpatient (IN) | payer OTHER ==
[2021-05-04 11:03] VITALS: BMI 35.9
[2021-05-08] MEDS ORDERED: BUPIVACAINE LIPOSOME/PF (EXPAREL) 266 MG/20 ML VIAL ONE (10:08)
[2021-05-08] MEDS ORDERED: BUPIVACAINE HCL/PF 0.25% (2.5MG/ML) 10 ML VIAL ONE (10:08)
[2021-05-08] MEDS ORDERED: BENZOIN/ALOE VERA/STORAX/TOLU 58 ML BOTTLE ONE (10:08)
[2021-05-08] MEDS ORDERED: GENTAMICIN SO4 80 MG/2 ML VIAL ONE (10:09)
[2021-05-08] MEDS ORDERED: THROMBIN (BOVINE) 20,000 UNIT VIAL TP ONE (10:09)
[2021-05-08] MEDS ORDERED: fentaNYL CITRATE 250 MCG/5 ML VIAL ONE (12:45)
[2021-05-08] MEDS ORDERED: PROPOFOL 20 ML ONE ×2 (12:45→13:20)
[2021-05-08] MEDS ORDERED: MIDAZOLAM HCL 2 MG/2 ML SINGLE DOSE VIAL ONE (12:46)
[2021-05-08] MEDS ORDERED: SUCCINYLCHOLINE CHLORIDE 200 MG/10 ML SYRINGE ONE (12:46)
[2021-05-08] MEDS ORDERED: HYDROmorphone HCl 2 MG/ML VIAL ONE ×2 (13:22→15:10)
[2021-05-08] MEDS ORDERED: KETAMINE HCL 200 MG/20 ML VIAL ONE (13:22)
[2021-05-08] MEDS ORDERED: VANCOMYCIN 1,000 MG VIAL (RESTRICTED TO ID ONLY) IVPB ONE (13:25)
[2021-05-08] MEDS ORDERED: ceFAZolin SODIUM 1 GM VIAL IVPB ONE (13:25)
[2021-05-08] MEDS ORDERED: ROCURONIUM BROMIDE 100 MG/10 ML VIAL ONE ×2 (13:31→14:27)
[2021-05-08] MEDS ORDERED: THROMBIN (BOVINE) 5,000 UNIT VIAL TP ONE (14:01)
[2021-05-08] MEDS ORDERED: GENTAMICIN SO4 80 MG/2 ML VIAL IVPB ONE (14:01)
[2021-05-08] MEDS ORDERED: ACETAMINOPHEN INJECTION 100 ML IVPB ONE (14:17)
[2021-05-08] MEDS ORDERED: BUPIVACAINE HCL/PF 0.5% (5MG/ML) 10 ML VIAL IJ ONE (14:30)
[2021-05-08] MEDS ORDERED: BUPIVACAINE LIPOSOME/PF (EXPAREL) 266 MG/20 ML VIAL NR ONE (14:30)
[2021-05-08] MEDS ORDERED: NEOSTIGMINE METHYLSULFATE 0.5 MG/ML - 10 ML MDV ONE ×2 (14:47→16:51)
[2021-05-08] MEDS ORDERED: ONDANSETRON 4 MG/2 ML VIAL IVPUSH PRN (16:18)
[2021-05-08] MEDS ORDERED: PROMETHAZINE HCL 25 MG/1 ML VIAL IVPUSH PRN (16:18)
[2021-05-08] MEDS ORDERED: LACTATED RINGERS SOLUTION 1,000 ML IV SCH (16:30)
[2021-05-08] MEDS ORDERED: HYDROmorphone *PCA* 10MG/50ML DISP.SYRIN ONE (16:57)
[2021-05-08] MEDS ORDERED: HYDROmorphone *PCA* 10MG/50ML DISP.SYRIN PCA ONE (17:24)
[2021-05-08] MEDS ORDERED: ONDANSETRON 4 MG/2 ML VIAL ONE (17:54)
[2021-05-08] MEDS ORDERED: ONDANSETRON 4 MG/2 ML VIAL IVPUSH ONE (17:58)
[2021-05-08] MEDS ORDERED: oxyCODONE HCL 5 MG TABLET PO PRN ×2 (17:59)
[2021-05-08] MEDS ORDERED: diazePAM CARPU-JECT 10 MG/2 ML DISP.SYRIN IVPUSH PRN (17:59)
[2021-05-08] MEDS ORDERED: HYDROmorphone HCL CARPU-JECT 2 MG/1 ML DISP.SYRIN SQ PRN (17:59)
[2021-05-08] MEDS: CEFAZOLIN 2 GM in DEXTROSE 5%-WATER - 100 ML IVPB SCH (21:55)
[2021-05-08] MEDS: LACTATED RINGERS SOLUTION 1,000 ML IV SCH (21:56)
[2021-05-08] MEDS: CYCLOBENZAPRINE HCL 10 MG TABLET (FP) PO SCH (22:02)
[2021-05-08] MEDS: HYDROmorphone *PCA* 10MG/50ML DISP.SYRIN PCA SCH (22:20)
[2021-05-08] MEDS: ONDANSETRON 4 MG/2 ML VIAL IVPUSH PRN (23:20)
[2021-05-09] MEDS: CEFAZOLIN 2 GM in DEXTROSE 5%-WATER - 100 ML IVPB SCH ×2 (03:22→08:50)
[2021-05-09] MEDS: ACETAMINOPHEN 1000 MG/100 ML VIAL IVPB PRN ×2 (03:42→15:18)
[2021-05-09 08:10] LABS: HEMATOCRIT 37.2 % (35.4-49); HEMOGLOBIN 12.2 GM/dL (11.7-16.9); MCH 28.5 pg (25.7-33.7); MCHC 32.8 g/dl (32.0-35.9); MEAN CELL VOLUME 87.1 fl (80-96); MEAN PLT VOLUME 8.9 fl (7.5-11.1); PLATELET COUNT 237 10^3/uL (134-434); RBC 4.27 M/mm3 (4.00-5.60); RDW 14.6 % (11.9-15.9); WHITE BLOOD COUNT 13.4 K/mm3 (4.0-10.0)
[2021-05-09 08:33] LABS: CALCIUM 8.3 mg/dL (8.5-10.1)
[2021-05-09 08:34] LABS: BLOOD UREA NITROGEN 15.3 mg/dL (7-18)
[2021-05-09 08:37] LABS: CREATININE 1.2 mg/dL (0.55-1.3)
[2021-05-09] MEDS: CYCLOBENZAPRINE HCL 10 MG TABLET (FP) PO SCH ×2 (08:59→21:33)
[2021-05-09] MEDS: LACTATED RINGERS SOLUTION 1,000 ML IV SCH (09:01)
[2021-05-09] MEDS ORDERED: diazePAM 5 MG TABLET PO ONE (09:30)
[2021-05-09] MEDS: ONDANSETRON 4 MG/2 ML VIAL IVPUSH PRN (10:24)
[2021-05-09] MEDS: HYDROmorphone *PCA* 10MG/50ML DISP.SYRIN PCA SCH (16:47)
[2021-05-09] MEDS ORDERED: diazePAM CARPU-JECT 10 MG/2 ML DISP.SYRIN IVPUSH SCH (21:00)
[2021-05-09] MEDS: SENNOSIDES 8.6MG TABLET (FP) PO SCH (21:33)
[2021-05-10] MEDS ORDERED: PCA PUMP NR ONE ×2 (02:10→09:22)
[2021-05-10] MEDS: LACTATED RINGERS SOLUTION 1,000 ML IV SCH ×2 (03:33→21:55)
[2021-05-10] MEDS: HYDROmorphone *PCA* 10MG/50ML DISP.SYRIN PCA SCH ×2 (03:37→18:10)
[2021-05-10 07:10] LABS: BASO % 0.6 % (0-2.0); EOS % 0.4 % (0-4.5); HEMATOCRIT 33.2 % (35.4-49); HEMOGLOBIN 11.1 GM/dL (11.7-16.9); LYMPH % 19.9 % (8-40); MCH 28.8 pg (25.7-33.7); MCHC 33.3 g/dl (32.0-35.9); MEAN CELL VOLUME 86.4 fl (80-96); MEAN PLT VOLUME 9.1 fl (7.5-11.1); MONO % 10.1 % (3.8-10.2); PLATELET COUNT 199 10^3/uL (134-434); RBC 3.85 M/mm3 (4.00-5.60); RDW 14.8 % (11.9-15.9); WHITE BLOOD COUNT 9.4 K/mm3 (4.0-10.0)
[2021-05-10 07:50] LABS: BLOOD UREA NITROGEN 10.8 mg/dL (7-18)
[2021-05-10 07:52] LABS: CALCIUM 8.2 mg/dL (8.5-10.1)
[2021-05-10 07:53] LABS: PHOSPHOROUS 2.5 mg/dL (2.5-4.9)
[2021-05-10 07:55] LABS: MAGNESIUM 1.8 mg/dL (1.8-2.4)
[2021-05-10] MEDS: CYCLOBENZAPRINE HCL 10 MG TABLET (FP) PO SCH ×2 (09:45→21:56)
[2021-05-10] MEDS: POLYETHYLENE GLYCOL (HEALTHYLAX) 3350 17 GM PACKET PO SCH (12:19)
[2021-05-10] MEDS ORDERED: KETOROLAC TROMETHAMINE 30 MG/1 ML VIAL IVPUSH ONE (20:48)
[2021-05-10] MEDS: SENNOSIDES 8.6MG TABLET (FP) PO SCH ×2 (21:39→21:55)
[2021-05-11] MEDS ORDERED: KETOROLAC TROMETHAMINE 30 MG/1 ML VIAL IVPUSH ONE (01:15)
[2021-05-11] MEDS: LACTATED RINGERS SOLUTION 1,000 ML IV SCH ×2 (07:08→18:31)
[2021-05-11 07:48] LABS: BASO % 0.6 % (0-2.0); EOS % 1.9 % (0-4.5); HEMATOCRIT 32.2 % (35.4-49); HEMOGLOBIN 10.7 GM/dL (11.7-16.9); LYMPH % 26.9 % (8-40); MCHC 33.3 g/dl (32.0-35.9); MONO % 9.6 % (3.8-10.2); PLATELET COUNT 213 10^3/uL (134-434); RDW 15.1 % (11.9-15.9)
[2021-05-11 08:21] LABS: BLOOD UREA NITROGEN 10.1 mg/dL (7-18); MAGNESIUM 1.8 mg/dL (1.8-2.4)
[2021-05-11 08:24] LABS: CREATININE 0.9 mg/dL (0.55-1.3); PHOSPHOROUS 3.4 mg/dL (2.5-4.9)
[2021-05-11] MEDS: POLYETHYLENE GLYCOL (HEALTHYLAX) 3350 17 GM PACKET PO SCH (10:04)
[2021-05-11] MEDS: CYCLOBENZAPRINE HCL 10 MG TABLET (FP) PO SCH ×2 (10:04→21:03)
[2021-05-11] MEDS: ACETAMINOPHEN 1000 MG/100 ML VIAL IVPB PRN (16:06)
[2021-05-11] MEDS: HYDROmorphone *PCA* 10MG/50ML DISP.SYRIN PCA SCH (16:07)
[2021-05-11] MEDS ORDERED: ACETAMINOPHEN 1000 MG/100 ML VIAL IVPB PRN (16:33)
[2021-05-11] MEDS: SENNOSIDES 8.6MG TABLET (FP) PO SCH (21:03)
[2021-05-12] MEDS ORDERED: PCA PUMP NR ONE ×2 (04:26→10:49)
[2021-05-12] MEDS: HYDROmorphone *PCA* 10MG/50ML DISP.SYRIN PCA SCH ×2 (04:43→16:44)
[2021-05-12 08:32] LABS: BASO % 0.9 % (0-2.0); EOS % 5.1 % (0-4.5); HEMATOCRIT 34.3 % (35.4-49); HEMOGLOBIN 11.4 GM/dL (11.7-16.9); LYMPH % 28.4 % (8-40); MCH 28.8 pg (25.7-33.7); MCHC 33.2 g/dl (32.0-35.9); MEAN CELL VOLUME 86.8 fl (80-96); MEAN PLT VOLUME 8.7 fl (7.5-11.1); MONO % 9.9 % (3.8-10.2); NEUT % 55.7 % (42.8-82.8); PLATELET COUNT 241 10^3/uL (134-434); RBC 3.95 M/mm3 (4.00-5.60); RDW 14.2 % (11.9-15.9); WHITE BLOOD COUNT 7.1 K/mm3 (4.0-10.0)
[2021-05-12 08:58] LABS: CALCIUM 8.5 mg/dL (8.5-10.1)
[2021-05-12 08:59] LABS: BLOOD UREA NITROGEN 11.6 mg/dL (7-18)
[2021-05-12 09:04] LABS: PHOSPHOROUS 3.1 mg/dL (2.5-4.9)
[2021-05-12] MEDS ORDERED: LORazepam 2 MG/ML SDV VIAL IVPUSH ONE (09:30)
[2021-05-12] MEDS: POLYETHYLENE GLYCOL (HEALTHYLAX) 3350 17 GM PACKET PO SCH (09:33)
[2021-05-12] MEDS: CYCLOBENZAPRINE HCL 10 MG TABLET (FP) PO SCH ×2 (09:39→22:16)
[2021-05-12] MEDS: LACTATED RINGERS SOLUTION 1,000 ML IV SCH (22:16)
[2021-05-12] MEDS: SENNOSIDES 8.6MG TABLET (FP) PO SCH (22:17)
[2021-05-13] MEDS ORDERED: PCA PUMP NR ONE ×2 (06:20→23:45)
[2021-05-13] MEDS: HYDROmorphone *PCA* 10MG/50ML DISP.SYRIN PCA SCH ×3 (06:46→23:47)
[2021-05-13] MEDS: POLYETHYLENE GLYCOL (HEALTHYLAX) 3350 17 GM PACKET PO SCH (09:41)
[2021-05-13] MEDS: CYCLOBENZAPRINE HCL 10 MG TABLET (FP) PO SCH ×2 (09:41→21:15)
[2021-05-13] MEDS ORDERED: ACETAMINOPHEN 1000 MG/100 ML VIAL IVPB PRN (12:42)
[2021-05-13] MEDS: SENNOSIDES 8.6MG TABLET (FP) PO SCH (21:15)
[2021-05-13] MEDS: LACTATED RINGERS SOLUTION 1,000 ML IV SCH (21:53)
[2021-05-14] MEDS ORDERED: PCA PUMP NR ONE (01:16)
[2021-05-14] MEDS: LACTATED RINGERS SOLUTION 1,000 ML IV SCH ×3 (06:37→18:03)
[2021-05-14 09:00] LABS: BASO % 1.1 % (0-2.0); EOS % 5.3 % (0-4.5); HEMATOCRIT 34.4 % (35.4-49); HEMOGLOBIN 11.6 GM/dL (11.7-16.9); LYMPH % 27.9 % (8-40); MCHC 33.7 g/dl (32.0-35.9); MEAN CELL VOLUME 86.2 fl (80-96); MEAN PLT VOLUME 8.1 fl (7.5-11.1); MONO % 9.3 % (3.8-10.2); NEUT % 56.4 % (42.8-82.8); PLATELET COUNT 280 10^3/uL (134-434); RBC 3.99 M/mm3 (4.00-5.60); RDW 14.8 % (11.9-15.9); WHITE BLOOD COUNT 6.3 K/mm3 (4.0-10.0)
[2021-05-14] MEDS: POLYETHYLENE GLYCOL (HEALTHYLAX) 3350 17 GM PACKET PO SCH (09:08)
[2021-05-14] MEDS: CYCLOBENZAPRINE HCL 10 MG TABLET (FP) PO SCH ×2 (09:08→21:42)
[2021-05-14 09:48] LABS: BLOOD UREA NITROGEN 10.3 mg/dL (7-18)
[2021-05-14 09:50] LABS: ALBUMIN 2.9 g/dl (3.4-5.0); CALCIUM 8.2 mg/dL (8.5-10.1)
[2021-05-14 09:52] LABS: CREATININE 0.9 mg/dL (0.55-1.3); PHOSPHOROUS 3.5 mg/dL (2.5-4.9)
[2021-05-14 09:53] LABS: BILIRUBIN,TOTAL 0.4 mg/dL (0.2-1)
[2021-05-14 09:55] LABS: TOT PROT 6.2 g/dl (6.4-8.2)
[2021-05-14] MEDS: HYDROmorphone *PCA* 10MG/50ML DISP.SYRIN PCA SCH (17:04)
[2021-05-14] MEDS: SENNOSIDES 8.6MG TABLET (FP) PO SCH (21:42)
[2021-05-15] MEDS ORDERED: PCA PUMP NR ONE ×2 (04:31→23:47)
[2021-05-15] MEDS: HYDROmorphone *PCA* 10MG/50ML DISP.SYRIN PCA SCH ×2 (04:38→18:54)
[2021-05-15 09:14] LABS: BASO % 1.1 % (0-2.0); EOS % 5.5 % (0-4.5); HEMATOCRIT 36.3 % (35.4-49); HEMOGLOBIN 11.9 GM/dL (11.7-16.9); LYMPH % 28.6 % (8-40); MCH 28.7 pg (25.7-33.7); MCHC 32.9 g/dl (32.0-35.9); MEAN CELL VOLUME 87.2 fl (80-96); MEAN PLT VOLUME 7.9 fl (7.5-11.1); MONO % 8.7 % (3.8-10.2); NEUT % 56.1 % (42.8-82.8); PLATELET COUNT 318 10^3/uL (134-434); RBC 4.16 M/mm3 (4.00-5.60); RDW 14.5 % (11.9-15.9); WHITE BLOOD COUNT 7.2 K/mm3 (4.0-10.0)
[2021-05-15] MEDS: POLYETHYLENE GLYCOL (HEALTHYLAX) 3350 17 GM PACKET PO SCH (09:17)
[2021-05-15] MEDS: CYCLOBENZAPRINE HCL 10 MG TABLET (FP) PO SCH ×2 (09:17→21:01)
[2021-05-15 09:53] LABS: ALBUMIN 3.1 g/dl (3.4-5.0); CALCIUM 8.4 mg/dL (8.5-10.1)
[2021-05-15 09:54] LABS: BLOOD UREA NITROGEN 10.3 mg/dL (7-18)
[2021-05-15 09:57] LABS: PHOSPHOROUS 2.8 mg/dL (2.5-4.9)
[2021-05-15 09:58] LABS: BILIRUBIN,TOTAL 0.4 mg/dL (0.2-1)
[2021-05-15 10:01] LABS: TOT PROT 6.5 g/dl (6.4-8.2)
[2021-05-15] MEDS: SODIUM CHLORIDE 0.45% 1,000 ML IV SCH (17:37)
[2021-05-15] MEDS: SENNOSIDES 8.6MG TABLET (FP) PO SCH (21:01)
[2021-05-16] MEDS ORDERED: PCA PUMP NR ONE (01:57)
[2021-05-16] MEDS: HYDROmorphone *PCA* 10MG/50ML DISP.SYRIN PCA SCH ×2 (01:58→20:00)
[2021-05-16] MEDS: CYCLOBENZAPRINE HCL 10 MG TABLET (FP) PO SCH ×2 (09:26→22:02)
[2021-05-16] MEDS: POLYETHYLENE GLYCOL (HEALTHYLAX) 3350 17 GM PACKET PO SCH (09:27)
[2021-05-16] MEDS ORDERED: THROMBIN (BOVINE) 5,000 UNIT VIAL TP ONE ×2 (14:09→14:30)
[2021-05-16] MEDS ORDERED: GENTAMICIN SO4 80 MG/2 ML VIAL ONE (14:22)
[2021-05-16] MEDS ORDERED: fentaNYL CITRATE 250 MCG/5 ML VIAL ONE ×2 (14:56→16:27)
[2021-05-16] MEDS ORDERED: PROPOFOL 20 ML ONE ×2 (14:57→18:40)
[2021-05-16] MEDS ORDERED: MIDAZOLAM HCL 2 MG/2 ML SINGLE DOSE VIAL ONE ×2 (14:57)
[2021-05-16] MEDS ORDERED: KETAMINE HCL 200 MG/20 ML VIAL ONE (14:57)
[2021-05-16] MEDS ORDERED: SUCCINYLCHOLINE CHLORIDE 200 MG/10 ML SYRINGE ONE (14:57)
[2021-05-16] MEDS ORDERED: ROCURONIUM BROMIDE 50 MG/5 ML SYRINGE ONE ×3 (14:57→17:05)
[2021-05-16] MEDS ORDERED: VANCOMYCIN 1,000 MG VIAL (RESTRICTED TO ID ONLY) IVPB ONE (16:15)
[2021-05-16] MEDS ORDERED: ceFAZolin SODIUM 1 GM VIAL IVPB ONE (16:30)
[2021-05-16] MEDS ORDERED: NEOSTIGMINE METHYLSULFATE 0.5 MG/1 ML - 10 ML MDV ONE (18:20)
[2021-05-16] MEDS ORDERED: BUPIVACAINE HCL/PF 0.5% (5MG/ML) 10 ML VIAL ONE (18:26)
[2021-05-16] MEDS ORDERED: BUPIVACAINE LIPOSOME/PF (EXPAREL) 266 MG/20 ML VIAL ONE (18:26)
[2021-05-16] MEDS ORDERED: HYDROmorphone HCl 2 MG/ML VIAL ONE (18:28)
[2021-05-16] MEDS ORDERED: BUPIVACAINE HCL/PF 0.5% (5 MG/ML) 30 ML VIAL IJ ONE (18:49)
[2021-05-16] MEDS ORDERED: BUPIVACAINE LIPOSOME/PF (EXPAREL) 266 MG/20 ML VIAL NR ONE (18:49)
[2021-05-16] MEDS ORDERED: HYDROmorphone HCl 2 MG/ML VIAL SQ PRN (19:39)
[2021-05-16] MEDS ORDERED: oxyCODONE HCL 5 MG TABLET PO PRN ×2 (19:39)
[2021-05-16] MEDS ORDERED: diazePAM CARPU-JECT 10 MG/2 ML DISP.SYRIN IVPUSH PRN (19:39)
[2021-05-16] MEDS ORDERED: ONDANSETRON 4 MG/2 ML VIAL IVPUSH PRN ×2 (19:42→19:59)
[2021-05-16] MEDS ORDERED: KETOROLAC TROMETHAMINE 30 MG/1 ML VIAL ONE (19:44)
[2021-05-16] MEDS ORDERED: LACTATED RINGERS SOLUTION 1,000 ML IV SCH (19:45)
[2021-05-16] MEDS ORDERED: KETOROLAC TROMETHAMINE 30 MG/1 ML VIAL IVPUSH ONE ×2 (19:47→19:50)
[2021-05-16] MEDS ORDERED: ACETAMINOPHEN 1000 MG/100 ML VIAL IVPB ONE ×2 (19:47→19:48)
[2021-05-16] MEDS ORDERED: HYDROmorphone *PCA* 10MG/50ML DISP.SYRIN PCA ONE (20:00)
[2021-05-16] MEDS ORDERED: HYDROmorphone *PCA* 10MG/50ML DISP.SYRIN ONE (20:07)
[2021-05-16] MEDS: ACETAMINOPHEN 1000 MG/100 ML VIAL IVPB SCH (20:54)
[2021-05-16] MEDS: SODIUM CHLORIDE 0.45% 1,000 ML IV SCH ×2 (20:56→21:54)
[2021-05-16] MEDS ORDERED: ceFAZolin SODIUM 1 GM VIAL ONE (21:56)
[2021-05-16] MEDS ORDERED: DEXTROSE 5%-WATER - 100 ML IVPB ONE (21:57)
[2021-05-16] MEDS: SENNOSIDES 8.6MG TABLET (FP) PO SCH (22:02)
[2021-05-16] MEDS: CEFAZOLIN 2 GM in DEXTROSE 5%-WATER - 100 ML IVPB SCH (22:05)
[2021-05-17] MEDS ORDERED: DEXTROSE 5%-WATER - 100 ML IVPB ONE ×2 (03:03→09:09)
[2021-05-17] MEDS ORDERED: ceFAZolin SODIUM 1 GM VIAL ONE ×2 (03:03→09:09)
[2021-05-17] MEDS: CEFAZOLIN 2 GM in DEXTROSE 5%-WATER - 100 ML IVPB SCH ×2 (03:07→09:11)
[2021-05-17] MEDS: ACETAMINOPHEN 1000 MG/100 ML VIAL IVPB SCH ×2 (04:07→11:59)
[2021-05-17 09:10] LABS: HEMATOCRIT 33.2 % (35.4-49); HEMOGLOBIN 10.9 GM/dL (11.7-16.9); MCH 28.4 pg (25.7-33.7); MCHC 32.7 g/dl (32.0-35.9); MEAN CELL VOLUME 86.7 fl (80-96); MEAN PLT VOLUME 8.1 fl (7.5-11.1); PLATELET COUNT 358 10^3/uL (134-434); RBC 3.84 M/mm3 (4.00-5.60); RDW 14.4 % (11.9-15.9); WHITE BLOOD COUNT 11.8 K/mm3 (4.0-10.0)
[2021-05-17] MEDS: POLYETHYLENE GLYCOL (HEALTHYLAX) 3350 17 GM PACKET PO SCH (09:11)
[2021-05-17] MEDS: CYCLOBENZAPRINE HCL 10 MG TABLET (FP) PO SCH ×2 (09:11→21:02)
[2021-05-17 09:27] LABS: CALCIUM 8.9 mg/dL (8.5-10.1)
[2021-05-17 09:28] LABS: BLOOD UREA NITROGEN 13.8 mg/dL (7-18)
[2021-05-17] MEDS ORDERED: PCA PUMP NR ONE ×2 (10:28→21:47)
[2021-05-17] MEDS: HYDROmorphone *PCA* 10MG/50ML DISP.SYRIN PCA SCH ×2 (10:30→21:49)
[2021-05-17] MEDS: SENNOSIDES 8.6MG TABLET (FP) PO SCH (21:02)
[2021-05-17] MEDS: SODIUM CHLORIDE 0.45% 1,000 ML IV SCH ×2 (21:03→22:54)
[2021-05-18] MEDS ORDERED: PCA PUMP NR ONE ×2 (01:39→17:48)
[2021-05-18 09:36] LABS: HEMATOCRIT 32.6 % (35.4-49); HEMOGLOBIN 10.9 GM/dL (11.7-16.9); MCH 28.6 pg (25.7-33.7); MCHC 33.3 g/dl (32.0-35.9); MEAN PLT VOLUME 7.7 fl (7.5-11.1); PLATELET COUNT 372 10^3/uL (134-434); RBC 3.79 M/mm3 (4.00-5.60); RDW 14.6 % (11.9-15.9)
[2021-05-18 09:54] LABS: ALBUMIN 3.1 g/dl (3.4-5.0); BLOOD UREA NITROGEN 14.5 mg/dL (7-18)
[2021-05-18 09:57] LABS: BILIRUBIN,TOTAL 0.4 mg/dL (0.2-1); TOT PROT 6.5 g/dl (6.4-8.2)
[2021-05-18] MEDS: CYCLOBENZAPRINE HCL 10 MG TABLET (FP) PO SCH ×2 (10:03→21:39)
[2021-05-18] MEDS: POLYETHYLENE GLYCOL (HEALTHYLAX) 3350 17 GM PACKET PO SCH (10:03)
[2021-05-18] MEDS: SENNOSIDES 8.6MG TABLET (FP) PO SCH (21:39)
[2021-05-18 22:08] VITALS: TEMP 98.7
[2021-05-19 06:25] VITALS: BP 113/62; PULSE 94
[2021-05-19] MEDS: POLYETHYLENE GLYCOL (HEALTHYLAX) 3350 17 GM PACKET PO SCH ×2 (09:54→09:58)
[2021-05-19] MEDS: CYCLOBENZAPRINE HCL 10 MG TABLET (FP) PO SCH (09:54)
== END 2021-05-19 16:19 | disposition home or self-care (01) | DRG 304 ==
LOC: J2C 04:17 → J8W 19:22
PROVIDERS: ADMIT Orthopaedic Surgery Orthopaedic Surgery of the Spine; ATTEND Orthopaedic Surgery Orthopaedic Surgery of the Spine
PROC: 07DR0ZZ Extraction of Iliac Bone Marrow, Open Approach (ICD-10-PCS; 2021-05-08)
PROC: 0SG0071 Fusion of Lumbar Vertebral Joint with Autologous Tissue Substitute, Posterior Approach, Posterior Column, Open Approach (ICD-10-PCS; 2021-05-08)
PROC: 0SG3071 Fusion of Lumbosacral Joint with Autologous Tissue Substitute, Posterior Approach, Posterior Column, Open Approach (ICD-10-PCS; 2021-05-08)
PROC: 00UT07Z Supplement Spinal Meninges with Autologous Tissue Substitute, Open Approach (ICD-10-PCS; 2021-05-08)
PROC: 01NB0ZZ Release Lumbar Nerve, Open Approach (ICD-10-PCS; 2021-05-08)
PROC: 0SP30AZ Removal of Interbody Fusion Device from Lumbosacral Joint, Open Approach (ICD-10-PCS; principal; 2021-05-08 12:00)
PROC: 00QT0ZZ Repair Spinal Meninges, Open Approach (ICD-10-PCS; 2021-05-16)
PROC: 009T0ZZ Drainage of Spinal Meninges, Open Approach (ICD-10-PCS; 2021-05-16)
PROC: 07DR0ZZ Extraction of Iliac Bone Marrow, Open Approach (ICD-10-PCS; 2021-05-16)
PROC: 0SG3071 Fusion of Lumbosacral Joint with Autologous Tissue Substitute, Posterior Approach, Posterior Column, Open Approach (ICD-10-PCS; 2021-05-16)
DX: T84.226A Displacement of internal fixation device of vertebrae, initial encounter (principal); Y83.8 Other surgical procedures as the cause of abnormal reaction of the patient, or of later complication, without mention of misadventure at the time of the procedure; M47.26 Other spondylosis with radiculopathy, lumbar region; M48.062 Spinal stenosis, lumbar region with neurogenic claudication; G96.11 Dural tear; R51.9 Headache, unspecified; G97.61 Postprocedural hematoma of a nervous system organ or structure following a nervous system procedure; M21.379 Foot drop, unspecified foot
CPT/HCPCS: 36415; 72148-TC; 73560-TC-LT-FY; 80048; 80053; 83735; 84100; 85025; 85027; 87070; 87102; 87116; 87186; 87205; 87206; 87210; 94760; 97116-GP; 97162-GP; C9803; J0131; U0003; U0005